=== PATIENT | male | born 1935 | race Caucasian/White ===

== ENCOUNTER 2023-05-10 09:07 | Inpatient (IN) | payer MEDICARE, OTHER, SELFPAY ==
[2023-05-08] VITALS (14 sets, daily range): BP systolic 120–179; BP diastolic 73–117; BMI 27.0
--- NOTE | 2023-05-08 02:54 | ED.GENMED ---
History of Present Illness
General
Chief Complaint: Hallucinations
Source: patient and spouse
Exam Limitations: none
Time Seen by Provider: 05/08/23 02:45
Nursing documentation reviewed up to this point in time: agreed with
Travel History
Have you had any contact with someone who has COVID-19?: No
Do you have any symptoms of coronavirus? Fever > 100 degrees, chills, cough, shortness of breath, sore throat, loss of taste or smell, muscle aches, or headache?: No
History of Present Illness
History of Present Illness:
This is a 88-year-old male that presents with acute hallucinations. According to they have been present since 4 PM this afternoon. Patient states that he saw 'fire 'around the room. Patient called 911. states that though he has not
driven in over a year, he got in the car to 'drive away'. Patient states that he was merely trying to wait outside in the driveway for the police to calm. Patient admits to 'hallucinating '. states that he has never done this before.
Patient denies any urinary symptoms.
Vital signs are stable. Patient not hypoxic
Nursing note reviewed. I agree with nursing documentation up to this point in time.
Home Meds and allergies reviewed.
NUMBER AND COMPLEXITY OF PROBLEMS ADDRESSED AT THE ENCOUNTER
� Chronic conditions affecting care: COPD, sleep apnea, on home oxygen, coronary artery disease, hypertension, hyperlipidemia
� Acute Exacerbation and/or Progression of Chronic Illness:
� Differential Diagnosis includes:
AMOUNT AND/OR COMPLEXITY OF DATA TO BE REVIEWED AND ANALYZED
I performed an independent evaluation of the following and my interpretation is:
EKG:
CT:
X-rays:
Ultrasound:
Laboratory Studies:
Other:
Review of other/old records:
Clinical information was obtained by an independent historian:
Prescriptions/Medications Considered but not given:
Further testing considered but not performed:
RISK OF COMPLICATIONS AND/OR MORBIDITY OR MORTALITY OF PATIENT MANAGEMENT
Social determinants of health affecting care: Good Social Support
Discussion with other providers:
Escalation of care including admission/observation vs risk of discharge considered:
CRITICAL CARE NOTE:
Total Time (exclusive of procedures):
Update:
Past History
Past History
ED Past Medical History: CAD, COPD, HTN, Hypercholesterolemia and Other (History of sleep apnea, prostatic hypertrophy, frequent urination, gout, osteoarthritis, osteoporosis, bilateral hearing impairment, cataracts, anemia)
ED Past Surgical History: Cardiac (Stents ) and Other (Hernia repairs, right shoulder surgery, left ear surgery, cataract surgery)
Social History
Tobacco: Non-smoker
Personal:
Living: with family
Employment: Retired
Family History
Family History: Unable to obtain
Phy Exam
General Physical Exam
General Presentation: mild distress
General age: appears stated age
General Skin: warm and dry
General Habitus: elderly and frail
General Mental: alert and confused
General Hydration: appears well hydrated
Cardiovascular Exam
Cardiovascular Exam: regular rate/rhythm and no edema
Pulmonary Exam
Pulmonary Exam: lungs clear and no respiratory distress
Gastrointestinal Exam
Gastrointestinal Exam: normal bowel sounds and non tender
Mental
Mental Status: confused
Musculoskeletal Exam
Musculoskeletal Exam: full ROM
Skin Exam
Skin Exam: normal color, warm/dry and no petechia
Psychiatric Exam
Psychiatric Exam: delusions
Course
Orders/Labs/Results
Orders:
Orders
05/08/23 02:41
Urinalysis Reflex To Culture Urgent
Date Specimen was Collected: 05/08/23
Time Specimen was Collected: 06:48
05/08/23 03:06
Complete Blood Count/With Diff Urgent
Comprehensive Metabolic Panel Urgent
Lactic Acid Urgent
Blood Culture Urgent
LASHA Source: Blood/Venous
Specimen Description:
05/08/23 03:43
0.9% Sodium Chloride 1000 ml [Nss] 1,000 ml IV BOLUS
05/08/23 05:41
CT Head W/o Iv Contrast Urgent
Comment:
Reason For Exam: confusion
Abnormal Lab Results
05/08/23
03:06
MCHC 32.5 L g/dL
(33.0-37.0)
Absolute Monos (auto) 0.7 H 10^3/uL
(0.1-0.6)
Lymphocytes % 16.8 L %
(20.5-51.1)
Carbon Dioxide 31 H mmol/L
(22-30)
BUN 33 H mg/dl
(9-20)
Glucose 102 H mg/dl
(70-99)
05/08/23 03:06
05/08/23 03:06
Vital Signs
Initial and Last Documented VS:
Initial Vital Signs
Temp Pulse Resp BP Pulse Ox
97.8 F 72 18 120/80 100
05/08/23 00:43 05/08/23 00:43 05/08/23 00:43 05/08/23 00:43 05/08/23 00:43
Last Documented Vital Signs
Temp Pulse Resp BP Pulse Ox
97.8 F 78 18 179/97 95
05/08/23 00:43 05/08/23 03:00 05/08/23 00:43 05/08/23 02:52 05/08/23 03:00
*Critical Care Note
Total Time (30-74mins, 75-104mins- exclusive of procedures): Not Applicable
ED Attending Note
-
Portions of this chart may have been created with voice recognition software.� Occasional wrong word or��sound alike� substitutions may have occurred due to the inherent limitations of voice recognition software.
Discharge Plan
Departure
Patient Disposition: Admit
Date of Disposition: 05/08/23
Time of Disposition: 07:17
Admit to: Med/Surg
Presentation/result/management discussed w/ accepting MD/DO: Hospitalist
Condition: Fair
Discharge Problem:
Acute confusion, Hallucinations, Acute dehydration
Instructions: BLOOD PRESSURE
Prescriptions:
No Action
zinc gluconate 50 MG tablet
50 mg PO DAILY
magnesium 250 MG tablet
100 mg PO DAILY
isosorbide mononitrate 10 MG tablet
5 mg PO DAILY
Patient Comments:
12/16/20-patient said he does not think he needs a full tablet so he either takes 1/4 or 1/2
atenolol 25 MG tablet
12.5 mg PO DAILY
Patient Comments:
12/16/20-patient said he does not think he needs a full tablet so he either takes 1/4 or 1/2
cyanocobalamin (vitamin B-12) 1,000 MCG tablet
1,000 mcg PO DAILY
ascorbic acid (vitamin C) [Vitamin C] 500 MG tablet
1,000 mg PO DAILY
ferrous sulfate [FeroSul] 325 MG tablet
325 mg PO DAILY
bumetanide 1 MG tablet
0.25 mg PO DAILY
Patient Comments:
12/16/20-patient said he does not think he needs a full tablet so he either takes 1/4 or 1/2
cholecalciferol (vitamin D3) 1,000 UNITS tablet
1,000 units PO DAILY
atorvastatin 20 MG tablet
40 mg PO QPM Qty: 30 0RF
clopidogrel 75 MG tablet
75 mg PO DAILY Qty: 30 0RF
Referrals:
Kumar Estrada MD [Family Provider] -
Interventions
Interventions:
*Risk Screen - Suicide Last Done: 05/08/23 00:43
*General Assessment Last Done: 05/08/23 03:31
*Neglect/Abuse Screening Last Done: 05/08/23 00:43
*ED COVID-19 Vaccine History Last Done: 05/08/23 03:31
ED-Suicide Risk Assessment Last Done: 05/08/23 03:33
ED- Neurological Assessment Last Done: 05/08/23 03:33
ED-Psychological Assessment Last Done: 05/08/23 03:33
[2023-05-08 03:15] LABS: % Basophils 0.5 % (0-2); % Eosinophils 0.8 % (0-6); % Immature Granulocytes 0.1 % (0-0.5); % Lymphocytes 16.8 % (20.5-51.1); % Monocytes 8.2 % (1.7-9.3); % Neutrophils 73.6 % (42.2-75.2); Absolute Eosinophils 0.1 10^3/uL (0-0.7); Absolute Lymphocytes 1.4 10^3/uL (1.2-3.4); Absolute Monocytes 0.7 10^3/uL (0.1-0.6); Absolute Neutrophils 6.1 10^3/uL (1.4-6.5); Hematocrit 41.5 % (39.0-52.0); Hemoglobin 13.5 g/dL (13.0-18.0); Mean Corp Hgb Conc. 32.5 g/dL (33.0-37.0); Mean Corpuscular Hgb 28.7 pg (27.0-31.0); Mean Corpuscular Volume 88.3 fL (80.0-94.0); Nucleated Red Blood Cells % 0 % (-); Platelet Count 218 10^3/uL (130-400); Red Cell Dist. Width 14.5 % (11.5-14.5); White Blood Cell Count 8.3 10^3/uL (4.8-10.8)
[2023-05-08 03:28] LABS: ALT (SGPT) 44 U/L (0-50); AST (SGOT) 54 U/L (17-59); Albumin 4.5 g/dl (3.5-5.0); Alkaline Phosphatase 124 U/L (38-126); Blood Urea Nitrogen 33 mg/dl (9-20); Calcium 9.6 mg/dl (8.4-10.2); Carbon Dioxide 31 mmol/L (22-30); Chloride 105 mmol/L (98-107); Estimated Creatinine Clearance 44 ml/min; Glucose 102 mg/dl (70-99); Potassium 4.2 mmol/L (3.5-5.1); Sodium 141 mmol/L (135-145); Total Bilirubin 0.6 mg/dl (0.2-1.3); Total Protein 7.3 g/dl (6.3-8.2); eGFR > 60.00
[2023-05-08] MEDS: NSS 1000 IV (04:14)
--- NOTE | 2023-05-08 07:39 | EDRN ---
the pt pressed the call acevedo and this RN entered the pts room, the pt stated to this RN that he needed to use the bathroom, this RN unhooked the pt from the monitor and assisted the pt to the bathroom and back to the stretcher with his single point
care with no issues, the pt was able to provide a urine sample, the pt is now resting in stretcher in the lowest position, side rails up x2, call acevedo within reach, HOB elevated, no s/s of distress, VS WNL, will continue to monitor the pt closely
[2023-05-08 07:57] LABS: Urine Albumin Trace (Neg - Trace); Urine Bilirubin Negative (Negative); Urine Character Clear (Clear); Urine Color Yellow; Urine Glucose Negative (Negative); Urine Ketone Negative (Negative); Urine Leukocyte Negative (Negative); Urine Nitrite Negative (Negative); Urine Occult Blood Negative (Negative); Urine Urobilinogen Negative (Neg - 1+)
--- NOTE | 2023-05-08 09:15 | EDRN ---
hospitalist currently at the pts bedside speaking to the pt and the pts
--- NOTE | 2023-05-08 09:22 | HPS.HSE ---
Family Physician
-
Family Physician: Kumar Estrada
Chief Complaint
-
Hallucinations x 1 day
History of Present Illness
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
difficulty (in 2020), anemia, hypertension, hyperlipidemia, COPD, sleep apnea, BPH, gout, osteoarthritis, bilateral hearing impairment, cataracts and anemia presented with hallucinations since yesterday. Patient appeared to be confused with poor
insight, therefore much of the history was obtained from patient's , who was present in the patient's room at the time of attempted patient encounter. Patient's mentioned that this was the first episode of patient having significant
confusion like this, started about 24 hours prior, she stated that patient was looking at the washing machine and saying water was flowing out of the machine and causing a flood which was not the case - the washing machine was functioning normally.
Patient's also stated that patient also thought their house was on fire (but in reality it was not). Patient's started that patient has been eating and drinking fine with no problems, and she also said that patient has not had any fever,
sore throat, URI symptoms, chest pain or shortness of breath, abdominal pain, nausea or vomiting. He does have on and off diarrhea with dark black stools, thought to be from his iron medication. She also said his left eye has been crusty over the
past day or so.
Medical History
Past Medical History
Past Medical History: Reports Other (As per HPI above)
Past Surgical History: Reports Cardiac and Orthopedic
Additional Past Surgical History:
Left ear surgery
Cataract surgery
Social History
Tobacco: Non-smoker
Alcohol: None
Drug: None
Family History
Family History: Other (Emphysema. Heart Disease.)
Allergies / Home Medications
Allergies reflects when Allergies were last updated in [employer]
Home Medications with original date entered in [employer]
Allergy/Medication List:
Allergies
Allergy/AdvReac Type Severity Reaction Status Date / Time
gramicidin D Allergy SORES GET Verified 05/08/23 00:46
WORSE
latex Allergy Rash Verified 05/08/23 00:46
neomycin Allergy SORES GET Verified 05/08/23 00:46
WORSE
NSAIDS (Non-Steroidal Allergy JUST Verified 05/08/23 00:46
Anti-Inflamma GENERALLY
DON'T TAKE
oxycodone Allergy 'WAY OUT Verified 05/08/23 00:46
IN SPACE'
polymyxin B Allergy SORES GET Verified 05/08/23 00:46
WORSE
shellfish derived Allergy gout Verified 05/08/23 00:46
Sulfa (Sulfonamide Allergy Rash 'GET Verified 05/08/23 00:46
Antibiotics) SICK' -
VOMITING
trimethoprim Allergy Unknown Verified 05/08/23 00:46
Home Medications
magnesium 250 mg tablet 100 mg PO DAILY Electrolyte Repletion 10/24/16
zinc gluconate 50 mg tablet 50 mg PO DAILY Supplement 10/24/16
isosorbide mononitrate 10 mg tablet 5 mg PO DAILY 01/17/17
ascorbic acid (vitamin C) 500 mg tablet (Vitamin C) 1,000 mg PO DAILY Supplement 12/16/20
atenolol 25 mg tablet 12.5 mg PO BID Blood pressure 12/16/20
bumetanide 1 mg tablet 0.5 mg PO MOTH Electrolyte Repletion 12/16/20
cholecalciferol (vitamin D3) 25 mcg (1,000 unit) tablet 1,000 units PO DAILY Supplement 12/16/20
cyanocobalamin (vitamin B-12) 1,000 mcg tablet 1,000 mcg PO DAILY Supplement 12/16/20
ferrous sulfate 325 mg (65 mg iron) tablet (FeroSul) 325 mg PO DAILY Supplement 12/16/20
aspirin 81 mg tablet,delayed release 81 mg PO DAILY 05/08/23
potassium 99 mg tablet 99 mg PO DAILY 05/08/23
vit C 250 mg-vit E 90 mg-zinc 40 mg-copper 1 [id number] capsule (PreserVision AREDS-2) 1 tab PO DAILY 05/08/23
Review of Systems
-
A 12 point ROS was completed and negative except as noted: Yes
Physical Exam
Vital Signs
Vital Signs
Temp Pulse Resp BP Pulse Ox
97.8 F 75 13 143/98 96
05/08/23 00:43 05/08/23 09:15 05/08/23 09:15 05/08/23 09:00 05/08/23 08:30
Physical Exam
General: No Apparent Distress and Comfortable
HEENT: NormoCephalic and Other (Left eye with some crusting and purulence)
Respiratory: Clear
Cardiac: S1/S2 and Regular Rhythm
GI: Soft, Non Tender and Normal Bowel Sounds
Musculoskeletal: No Cyanosis, Edema, Left Lower Extremity and Edema, Right Lower Extremity
Skin: Warm and Dry
Neuro: Awake, Alert and AO x 3 (but poor insight)
Psych: Calm, Confused and Other (demonstrate hallucinations)
Laboratory Results
-
05/08/23 03:06
05/08/23 03:06
Laboratory Results
Lactic Acid 1.0 mmol/L (0.7-2.0) 05/08/23 03:06
Total Bilirubin 0.6 mg/dl (0.2-1.3) 05/08/23 03:06
AST 54 U/L (17-59) 05/08/23 03:06
ALT 44 U/L (0-50) 05/08/23 03:06
Alkaline Phosphatase 124 U/L (38-126) 05/08/23 03:06
Impression/Plan
-
Assessment/Plan
Acute Hallucinations
Concern for Acute Toxic Metabolic Encephalopathy
-UA does not suggest UTI
-CXR, TSH, B1, B12, folate, ammonia, coags, magnesium, phosphorus, AM cortisol, serum osmolality
-CT Head - IMPRESSION (as per radiologist's report):
'1. Moderate-sized chronic subdural hygroma overlying the lateral convexity of the right frontal and parietal lobes causing mild mass effect which is not definitively changed from 12/17/2020.
2. 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
3. Severe white matter leukoaraiosis in the frontal and parietal lobes.
4. Mild diffuse cerebral and cerebellar volume loss.
5. Severe intracranial calcific atherosclerotic disease.'
-Check UDS
-Will consider neurology/neurosurgery consultation
Left Eye Mild Purulence
-Spoke on May 08, 2023 with on-call knitting machine operator helper Dr. Vivi Mills and shared (with Dr. Prince Mills) photo of patient's eye with patient's 's permission
-Based on history and exam it looks like suspected blepharitis
-Warm compresses
-Eyelid Scrubs
-Erythromycin ointment TID
Right Lower Extremity Wound
Chronic Right Lower Extremity Erythema
-Caused by trauma?
-Right lower extremity x-ray
-Patient's reports that patient has had this redness for a long time
-Will consider ID consult
-Wound care
Intermittent Diarrhea with Dark Black Stools - thought to be from iron medication and Hgb normal on admission. F/u outpatient.
Coronary artery disease status post stents - continue Aspirin, Isosorbide Mononitrate and Atenolol
Solitary kidney (since childhood) - monitor renal function; minimize/avoid nephrotoxic agents
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
History of signs and symptoms of cognitive impairment
History of speech difficulty (in 2020)
Anemia - Hgb normal on admission. Continue home ferrous sulfate. Continue home Vitamin B12.
Hypertension - SBP elevated to 170s overnight, now 140s - continue home nitrate, Bumex and beta benigno
Hyperlipidemia
COPD - stable
Sleep apnea
BPH
Gout
Osteoarthritis
Bilateral hearing impairment
Cataracts
DVT PPx: Lovenox
Code Status: DNR (Hospitalist confirmed this with patient's at the time of admission)
--- NOTE | 2023-05-08 10:34 | EDRN ---
"the pts came out of the pts room and approached this RN at the nurses station, the pts stated to this RN, 'My has not gotten any of his AM medications and i want them given to him now', this RN notified the hospitalist "Valeria"Juliette and received verbal orders for morning medications"
--- NOTE | 2023-05-08 10:45 | EDRN ---
this RN called pharmacy for the pts medications, pharmacy will be sending AM meds
[2023-05-08 11:16] LABS: Phosphorus 3.4 mg/dl (2.5-4.5)
[2023-05-08 11:48] LABS: Amphetamines Negative (Negative); Barbiturates Negative (Negative); Benzodiazepines Negative (Negative); Buprenorphine Negative (Negative); Cocaine Negative (Negative); Marijuana Negative (Negative); Methadone Negative (Negative); Methamphetamines Negative (Negative); Opiates Negative (Negative); Phencyclidine Negative (Negative); Tricyclic Antidepressants Negative (Negative)
[2023-05-08 11:50] LABS: Osmolality Serum 304 mOsm/kg (275-300)
[2023-05-08] MEDS: TENORMIN 25 MG PO (12:16)
[2023-05-08] MEDS: ISMO 10 MG PO (12:16)
[2023-05-08] MEDS: BUMEX 1 MG PO (12:16)
[2023-05-08 13:02] LABS: Folate 8.9 ng/ml (2.76-20)
[2023-05-08 13:27] LABS: INR 1.09; PT 13.9 Sec (11.4-14.6)
[2023-05-08 13:28] LABS: APTT 37.7 Sec (23.4-35.0)
[2023-05-08 13:33] LABS: Ammonia 12 umol/L (9-30)
[2023-05-08 13:39] LABS: Iron 75 ug/dl (49-181); Magnesium 1.8 mg/dl (1.6-2.3)
--- NOTE | 2023-05-08 13:39 | CON.NS ---
Consultation
-
Date/Time Consultation Performed: 13:40, 05/08/2023
Performing Provider: Ida
Chief Complaint
History of Present Illness
This is a neurosurgical consultation on 88 yo M with chronic hx of CAD, s/p stents, cognitive impairment, HTN, who presents with one day hx of visual hallucinations. Thus far, metabolic workup is negative. Patient with CTH that demonstrated slight
enlargement of known right convexity subdural hygroma.
Patient seen and examined. at the bedside. reports that the patient has had a history of hallucinations, but they have not been as bad as they were yesterday. She denies any medication changes.
Review of Systems
-
10 point review of systems was performed, which includes constitutional, ENT, cardiovascular, respiratory, GI, , neurologic, psychiatric, hematologic, endocrine logic, which was negative, except for stated in HPI.
Medication and Allergies
Home Medications
Home Medications
Medication Instructions Recorded
magnesium 250 mg tablet 100 mg PO DAILY Electrolyte 10/24/16
Repletion
zinc gluconate 50 mg tablet 50 mg PO DAILY Supplement 10/24/16
isosorbide mononitrate 10 mg tablet 5 mg PO DAILY 01/17/17
ascorbic acid (vitamin C) 500 mg 1,000 mg PO DAILY Supplement 12/16/20
tablet (Vitamin C)
atenolol 25 mg tablet 12.5 mg PO BID Blood pressure 12/16/20
bumetanide 1 mg tablet 0.5 mg PO MOTH Electrolyte 12/16/20
Repletion
cholecalciferol (vitamin D3) 25 1,000 units PO DAILY Supplement 12/16/20
mcg (1,000 unit) tablet
cyanocobalamin (vitamin B-12) 1,000 mcg PO DAILY Supplement 12/16/20
1,000 mcg tablet
ferrous sulfate 325 mg (65 mg 325 mg PO DAILY Supplement 12/16/20
iron) tablet (FeroSul)
aspirin 81 mg tablet,delayed 81 mg PO DAILY 03/11/24
release
potassium 99 mg tablet 99 mg PO DAILY 05/08/23
vit C 250 mg-vit E 90 mg-zinc 40 1 tab PO DAILY 05/08/23
mg-copper 1 [id number]
capsule (PreserVision AREDS-2)
Allergies
Allergies
Allergy/AdvReac Type Severity Reaction Status Date / Time
gramicidin D Allergy SORES GET Verified 05/08/23 00:46
WORSE
latex Allergy Rash Verified 05/08/23 00:46
neomycin Allergy SORES GET Verified 05/08/23 00:46
WORSE
NSAIDS (Non-Steroidal Allergy JUST Verified 05/08/23 00:46
Anti-Inflamma GENERALLY
DON'T TAKE
oxycodone Allergy 'WAY OUT Verified 05/08/23 00:46
IN SPACE'
polymyxin B Allergy SORES GET Verified 05/08/23 00:46
WORSE
shellfish derived Allergy gout Verified 05/08/23 00:46
Sulfa (Sulfonamide Allergy Rash 'GET Verified 05/08/23 00:46
Antibiotics) SICK' -
VOMITING
trimethoprim Allergy Unknown Verified 05/08/23 00:46
Physical Exam
-
Exam:
Awake, alert, conversant.
Oriented to year, person, and place.
Cranial nerves II through XII are grossly intact.
Motor: 5/5 strength of bilateral upper extremities and lower extremities.
Sensation intact in all dermatomes.
Gait not tested.
Reflexes symmetric bilaterally in upper and lower extremities
Head is normocephalic atraumatic.
Neck is supple.
Breathing nonlabored.
Pulses palpable.
Noncontrast CT scan of the head performed on 05/08/2023 was reviewed, and compared with previous CT performed in November 2020. There is stable appearing right-sided hypodense collection overlying the right convexity, which appears to be consistent
with a right subdural hygroma. There is no obvious evidence of brain compression or midline shift noted. No acute hemorrhages seen.
Problems
-
Problem Status Onset Code
Acute confusion R41.0
Hallucinations R44.3
Acute dehydration E86.0
Assessment / Plan
-
88-year-old gentleman, the presents with visual hallucinations. CT of the head demonstrates stable right-sided subdural hygroma. Given stability, and patient's acute onset of symptomatology, this is unlikely the cause of patient's symptoms.
Continue toxic/metabolic workup for encephalopathy.
No neurosurgical intervention indicated.
[2023-05-08] MEDS: VITAMIN C 1000 MG PO (13:48)
[2023-05-08] MEDS: KCL 10 MEQ PO (13:48)
[2023-05-08] MEDS: VITAMIN D3 (cholecalciferol) 25 MCG PO (13:48)
[2023-05-08] MEDS: ZINC SULFATE 220 MG PO (13:48)
[2023-05-08] MEDS: ASPIR LOW (ENTERIC COATED) 81 MG PO (13:48)
[2023-05-08] MEDS: FEOSOL 325 MG PO (13:48)
[2023-05-08] MEDS: OCUVITE SOFTGEL 1 CAP PO (13:48)
[2023-05-08] MEDS: VITAMIN B-12 1000 MCG PO (13:48)
[2023-05-08 13:49] LABS: Percent Saturation 25 % (20-50); Total Iron Binding Capacity 291 ug/dl (261-462)
[2023-05-08 14:10] LABS: TSH 3.97 uIU/ml (0.47-4.68)
[2023-05-08 14:29] LABS: Vitamin B12 741 pg/ml (239-931)
--- NOTE | 2023-05-08 15:32 | PTCARENOTE ---
Notified provider of patient rectal temp 94.8
--- NOTE | 2023-05-08 18:21 | PTCARENOTE ---
Pt with agitation. Yelling 'You can't stop it!' repeatedly. Got out of bed and began yelling 'You can't stop it!' at roommate. Bed alarm in place. Pt's at bedside. Pt calm. Bed alarm in place.
[2023-05-08] MEDS: LOVENOX 40 MG SC (18:36)
[2023-05-08] MEDS: ERYTHROMYCIN 0.5% OPHTHALMIC OINTMENT 1 APPLIC OPHTH ×2 (18:39→21:26)
[2023-05-08] MEDS: TENORMIN 12.5 MG PO (20:15)
[2023-05-09] MEDS: NSS (PRESERVATIVE FREE) 0.25 ML IV (00:15)
[2023-05-09] MEDS: ATIVAN 0.5 MG IV (00:15)
--- NOTE | 2023-05-09 00:15 | PTCARENOTE ---
Pt is AAOx3. Severely anxious, forgetful, confused, noncooperative, paranoid and hallucinating. Pt refuse to take anything by mouth due to paranoia. Pt believes he is home. High fall risk. Bed alarm in place. IT DISASTER RECOVERY MANAGER notify and small dose of Ativan IV
order. will cont w/ tx.
[2023-05-09 03:10] VITALS: BP 153/88
[2023-05-09 04:54] VITALS: BMI 25.8
[2023-05-09 07:30] VITALS: BP 141/96
[2023-05-09 08:56] LABS: Hemoglobin 12.2 g/dL (13.0-18.0); Mean Corpuscular Hgb 28.9 pg (27.0-31.0); Mean Corpuscular Volume 87.7 fL (80.0-94.0); Mean Platelet Volume 10.2 fL (7.4-10.4); Platelet Count 207 10^3/uL (130-400); Red Blood Cell Count 4.22 10^6/uL (4.70-6.10); Red Cell Dist. Width 14.8 % (11.5-14.5); White Blood Cell Count 12.4 10^3/uL (4.8-10.8)
[2023-05-09] MEDS: ERYTHROMYCIN 0.5% OPHTHALMIC OINTMENT 1 APPLIC OPHTH ×3 (09:17→21:11)
[2023-05-09] MEDS: ASPIR LOW (ENTERIC COATED) 81 MG PO (09:17)
[2023-05-09] MEDS: ISMO 5 MG PO (09:18)
[2023-05-09] MEDS: FEOSOL 325 MG PO (09:18)
[2023-05-09] MEDS: KCL 10 MEQ PO (09:20)
[2023-05-09] MEDS: MAG-TAB SR 84 MG PO (09:20)
[2023-05-09] MEDS: ZINC SULFATE 220 MG PO (09:21)
[2023-05-09] MEDS: TENORMIN 12.5 MG PO ×2 (09:22→20:41)
[2023-05-09] MEDS: VITAMIN D3 (cholecalciferol) 25 MCG PO (09:24)
[2023-05-09] MEDS: VITAMIN C 1000 MG PO (09:24)
[2023-05-09] MEDS: OCUVITE SOFTGEL 1 CAP PO (09:24)
[2023-05-09] MEDS: VITAMIN B-12 1000 MCG PO (09:24)
[2023-05-09 09:27] LABS: Blood Urea Nitrogen 31 mg/dl (9-20); Calcium 9.1 mg/dl (8.4-10.2); Carbon Dioxide 29 mmol/L (22-30); Chloride 103 mmol/L (98-107); Estimated Creatinine Clearance 49 ml/min; Glucose 112 mg/dl (70-99); Sodium 139 mmol/L (135-145); eGFR > 60.00
[2023-05-09 09:53] LABS: Cortisol, Random 24.7 ug/dl
[2023-05-09 10:14] LABS: B.E. 4.6 mmol/L; HCO3 31.2 mmol/L (21-28); O2 Saturation % 96.9 % (94-98); PCO2 54 mmHg (35-48); PO2 77 mmHg (83-108); pH 7.37 (7.35-7.45)
--- NOTE | 2023-05-09 11:38 | W.PN.HOSP.TC ---
Today's Communication/Plan
-
Patient's will bring patient's BiPAP from home today - he should wear BiPAP whenever he is sleeping as he does at home
Continue home BiPAP
Started antibiotics for pneumonia
Will consult neurology if patient's mental status fails to improve by May 10, 2023
Assessment / Plan
Assessment / Plan
Physical Exam
General: No Apparent Distress and Comfortable
HEENT: Normocephalic and Other (Left eye with some crusting and purulence)
Respiratory: Clear
Cardiac: S1/S2 and Regular Rhythm
GI: Soft, Non Tender and Normal Bowel Sounds
Musculoskeletal: No Cyanosis, Edema, Left Lower Extremity and Edema, Right Lower Extremity. RLE erythema near ankle (chronic per patient's family)
Skin: Warm and Dry
Neuro: Sleepy, difficult to arouse
Psych: Calm, Confused and Other (demonstrate hallucinations)

Assessment/Plan
Acute Hallucinations
Concern for Acute Toxic Metabolic Encephalopathy
Pneumonia vs. Atelectasis at the Lung Bases
New Leukocytosis on May 09, 2023 morning
-UA does not suggest UTI
-CXR (possible atelectasis vs. pneumonia at the lung bases), TSH - OK, B1 - PENDING, B12 - OK, folate - OK, ammonia - OK, coags - OK, magnesium - OK, phosphorus - OK, AM cortisol - OK, serum osmolality - slightly elevated at 304
-Continue Rocephin and PO Doxycycline given possible pneumonia on CXR
-CT Head - IMPRESSION (as per radiologist's report):
'1. ��Moderate-sized chronic subdural hygroma�overlying the lateral convexity of the right frontal and parietal lobes�causing mild mass effect�which is not definitively changed from 12/17/2020.
2. 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
3. � Severe white matter leukoaraiosis in the frontal and parietal lobes.
4. � Mild diffuse cerebral and cerebellar volume loss.
5. ��Severe intracranial calcific atherosclerotic disease.'
-UDS negative
-Neurosurgery consulted, recommendations appreciated
-Plan is to consult neurology if patient's mental status does not improve by May 10, 2023
Left Eye Mild Purulence
-Spoke on May 08, 2023 with on-call sack department supervisor Dr. Vivi Mills and shared (with Dr. Prince Mills) photo of patient's eye with patient's 's permission
-Based on history and exam it looks like suspected blepharitis
-Warm compresses
-Eyelid Scrubs
-Erythromycin ointment TID
Right Lower Extremity Wound
Chronic Right Lower Extremity Erythema
-Caused by trauma?
-Right ankle x-ray showed: osteopenia and vascular calcification/atherosclerosis
-Patient's reports that patient has had this redness for a long time--and it actually looks better than usual
-Will consider ID consult
-Wound care
Intermittent Diarrhea with Dark Black Stools - thought to be from iron medication and Hgb normal on admission. F/u outpatient.
Coronary artery disease status post stents - continue Aspirin, Isosorbide Mononitrate and Atenolol
Solitary kidney (since childhood) - monitor renal function; minimize/avoid nephrotoxic agents
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
History of signs and symptoms of cognitive impairment
History of speech difficulty (in 2020)
Anemia - Hgb normal on admission. Continue home ferrous sulfate. Continue home Vitamin B12.
Hypertension - SBP was previously elevated to 170s, now 140s - continue home nitrate, Bumex and beta benigno
Hyperlipidemia
COPD - stable. Continue home BiPAP,
Sleep apnea
BPH
Gout
Osteoarthritis
Bilateral hearing impairment
Cataracts
DVT PPx:�Lovenox
Code Status:�DNR (Hospitalist confirmed this with patient's at the time of admission)
I spoke with patient's Gloria and patient's son over the phone at [phone].
Anticipated Discharge: > 48 hours
Subjective/Interval History
-
Date of Service: May 09, 2023
Patient was seen and examined. He was very sleepy and difficult to arouse this morning.
Objective Data
-
Labs:
Laboratory Results
05/09/23 05/09/23
08:19 10:03
WBC 12.4 H
Hgb 12.2 L
Hct 37.0 L
Plt Count 207
HCO3 31.2 H
Sodium 139
Potassium 4.0
Chloride 103
Carbon Dioxide 29
BUN 31 H
Creatinine 1.0
Glucose 112 H
Calcium 9.1
Vital Signs:
Vital Signs
Temp Pulse Resp BP Pulse Ox
97.5 F 77 18 141/96 93
05/09/23 03:10 05/09/23 07:30 05/09/23 07:30 05/09/23 07:30 05/09/23 07:30
I&O
05/08/23 05/09/23 05/10/23
06:59 06:59 06:59
Intake Total 360 / 360
Balance 360 / 360
[2023-05-09] MEDS: ROCEPHIN 1000 MG IV (11:57)
[2023-05-09] MEDS: STERILE WATER FOR INJECTION 10 ML IV (11:57)
[2023-05-09] MEDS: NSS 1000 IV (14:52)
[2023-05-09 14:59] VITALS: BP 159/79
--- NOTE | 2023-05-09 15:45 | CM ---
Patient asleep, initial assessment completed with Gloria and son, Zhao. Per family, patient resides with in a two story home, 2 steps to enter home, 13 steps upstairs. Patient has a cane and walker at home, CPAP through [facility], denies VN,
reports [facility] several years ago. Patient PCP Kumar Estrada, [place] [facility] [place] SALINAS status explained, refused to sign, placed in patients chart. CM provided list of private caregivers. CM will continue to follow for discharge planning
needs.
Plan; discharge needs will depend on further medical eval
[2023-05-09 16:30] LABS: COVID-19 Antigen Negative (Negative)
[2023-05-09] MEDS: LOVENOX 40 MG SC (17:21)
[2023-05-09 20:33] VITALS: BP 174/93
[2023-05-09] MEDS: VIBRAMYCIN 100 MG PO (20:43)
[2023-05-09 23:21] VITALS: BP 134/78
[2023-05-10] VITALS (7 sets, daily range): BP systolic 101–142; BP diastolic 49–79; BMI 26.3
[2023-05-10] MEDS: NSS 1000 IV ×2 (03:02→15:19)
--- NOTE | 2023-05-10 04:53 | PTCARENOTE ---
2029 pt is drowsy abut arousable. able to tell this nurse his name and take is HS medications w/o issue. pt has a rectal temp 93.3- placed on swapna hugger.
at 0200 pt woke up became restless, and trying to remove the swapna hugger.
at 0300 rectal temp=97.2 - swapna hugger removed. pt was restless had some water then went back to bed. bed alarm in place.
[2023-05-10 08:38] LABS: Hematocrit 39.4 % (39.0-52.0); Hemoglobin 12.9 g/dL (13.0-18.0); Mean Corp Hgb Conc. 32.7 g/dL (33.0-37.0); Mean Corpuscular Hgb 28.8 pg (27.0-31.0); Mean Corpuscular Volume 87.9 fL (80.0-94.0); Mean Platelet Volume 10.2 fL (7.4-10.4); Platelet Count 200 10^3/uL (130-400); Red Blood Cell Count 4.48 10^6/uL (4.70-6.10); Red Cell Dist. Width 14.8 % (11.5-14.5)
[2023-05-10] MEDS: ASPIR LOW (ENTERIC COATED) 81 MG PO (08:47)
[2023-05-10] MEDS: ERYTHROMYCIN 0.5% OPHTHALMIC OINTMENT 1 APPLIC OPHTH ×3 (08:48→22:09)
[2023-05-10] MEDS: FEOSOL 325 MG PO (08:49)
[2023-05-10] MEDS: ISMO 5 MG PO (08:49)
[2023-05-10] MEDS: KCL 10 MEQ PO (08:52)
[2023-05-10] MEDS: OCUVITE SOFTGEL 1 CAP PO (08:52)
[2023-05-10] MEDS: MAG-TAB SR 84 MG PO (08:52)
[2023-05-10] MEDS: TENORMIN 12.5 MG PO ×2 (08:53→20:50)
[2023-05-10] MEDS: VIBRAMYCIN 100 MG PO ×2 (08:55→20:50)
[2023-05-10] MEDS: VITAMIN B-12 1000 MCG PO (08:56)
[2023-05-10] MEDS: VITAMIN C 1000 MG PO (08:56)
[2023-05-10] MEDS: ZINC SULFATE 220 MG PO (08:57)
[2023-05-10] MEDS: TYLENOL 1000 MG PO (08:57)
[2023-05-10] MEDS: VITAMIN D3 (cholecalciferol) 25 MCG PO (08:57)
[2023-05-10 09:07] LABS: Blood Urea Nitrogen 28 mg/dl (9-20); Calcium 9.2 mg/dl (8.4-10.2); Carbon Dioxide 26 mmol/L (22-30); Chloride 104 mmol/L (98-107); Estimated Creatinine Clearance 54 ml/min; Glucose 135 mg/dl (70-99); Potassium 3.9 mmol/L (3.5-5.1); Sodium 141 mmol/L (135-145); eGFR > 60.00
--- NOTE | 2023-05-10 11:49 | PTOTSP ---
SPEECH THERAPY SWALLOW EVALUATION:
Patient presents with grossly functional oropharyngeal swallow function at this time during CSE; However patient remains at risk for aspiration and related complications given significant lethargy yesterday. CXR concerning for bibasilar pneumonia,
WBC elevated. At this time, patient exhibiting no overt signs or symptoms of aspiration; Patient and family deny history of dysphagia symptoms. Given this, patient appears safe to continue oral diet with monitoring. Recommend Regular texture diet,
thin liquids. Aspiration precautions including: Upright positioning, 100% supervision/assistance with meals; discontinue oral diet should patient present with signs of aspiration or a decline in mental status or increase in lethargy. Feed only when
awake/alert. Medications whole with liquid. Speech therapy to follow, assess diet tolerance and modify as appropriate, monitor CXR and labs, determine indication for instrumental assessment of swallow, and provide education regarding aspiration
risks/precautions.
RECOMMEND:
1) Regular texture diet, thin liquids
2) Medications whole with liquid
3) Aspiration precautions including: Upright positioning, 100% supervision/assistance with meals; discontinue oral diet should patient present with signs of aspiration or a decline in mental status or increase in lethargy. Feed only when awake/alert
4) Speech therapy to follow, assess diet tolerance and modify as appropriate, monitor CXR and labs, determine indication for instrumental assessment of swallow, and provide education regarding aspiration risks/precautions
[2023-05-10] MEDS: ROCEPHIN 1000 MG IV (11:58)
[2023-05-10] MEDS: STERILE WATER FOR INJECTION 10 ML IV (11:59)
--- NOTE | 2023-05-10 12:46 | PTCARENOTE ---
Pt's temp noted to be 94.4 orally. Checked temp rectally and pt was 96.5. Sammie mason applied and pt rechecked in an hour and was 96.6 rectally. Sammie mason remains on patient at this time. Will continue to monitor.
--- NOTE | 2023-05-10 14:36 | CM ---
CM reviewed TT that patient has been switched to inpatient status. [facility] CM will continue to follow for discharge planning needs.
Plan; discharge needs will depend on further medical eval
[2023-05-10] MEDS: LOVENOX 40 MG SC (17:00)
--- NOTE | 2023-05-10 20:23 | W.PN.HOSP.TC ---
Today's Communication/Plan
-
Doing better, continue to monitor
Continue BiPAP
Might need to consult psychiatry
Assessment / Plan
Assessment / Plan
Physical Exam
General: No Apparent Distress and Comfortable
HEENT: Normocephalic and Other (Left eye with some crusting and purulence - improved slightly)
Respiratory: Clear
Cardiac: S1/S2 and Regular Rhythm
GI: Soft, Non Tender and Normal Bowel Sounds
Musculoskeletal: No Cyanosis, Edema, Left Lower Extremity and Edema, Right Lower Extremity. RLE erythema near ankle (chronic per patient's family)
Skin: Warm and Dry
Neuro: Alert. Awake.
Psych: Calm

Assessment/Plan
Acute Hallucinations
Concern for Acute Toxic Metabolic Encephalopathy
Pneumonia vs. Atelectasis at the Lung Bases
New Leukocytosis on May 09, 2023 morning
-UA does not suggest UTI
-CXR (possible atelectasis vs. pneumonia at the lung bases), TSH - OK, B1 - PENDING, B12 - OK, folate - OK, ammonia - OK, coags - OK, magnesium - OK, phosphorus - OK, AM cortisol - OK, serum osmolality - slightly elevated at 304
-Continue Rocephin and PO Doxycycline given possible pneumonia on CXR
-CT Head - IMPRESSION (as per radiologist's report):
'1. ��Moderate-sized chronic subdural hygroma�overlying the lateral convexity of the right frontal and parietal lobes�causing mild mass effect�which is not definitively changed from 12/17/2020.
2. 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
3. � Severe white matter leukoaraiosis in the frontal and parietal lobes.
4. � Mild diffuse cerebral and cerebellar volume loss.
5. ��Severe intracranial calcific atherosclerotic disease.'
-UDS negative
-Neurosurgery consulted, recommendations appreciated
-Plan is to consult neurology/psychiatry if patient's mental status does not improve further or patient continues to demonstrate psychosis
Left Eye Mild Purulence
-Spoke on May 08, 2023 with on-call binder roller Dr. Vivi Mills and shared (with Dr. Prince Mills) photo of patient's eye with patient's 's permission
-Based on history and exam it looks like suspected blepharitis
-Warm compresses
-Eyelid Scrubs
-Erythromycin ointment TID
Right Lower Extremity Wound
Chronic Right Lower Extremity Erythema
-Caused by trauma?
-Right ankle x-ray showed: osteopenia and vascular calcification/atherosclerosis
-Patient's reports that patient has had this redness for a long time--and it actually looks better than usual
-Will consider ID consult
-Wound care
Intermittent Diarrhea with Dark Black Stools - thought to be from iron medication and Hgb normal on admission. F/u outpatient.
Coronary artery disease status post stents - continue Aspirin, Isosorbide Mononitrate and Atenolol
Solitary kidney (since childhood) - monitor renal function; minimize/avoid nephrotoxic agents
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
History of signs and symptoms of cognitive impairment
History of speech difficulty (in 2020)
Anemia - Hgb normal on admission. Continue home ferrous sulfate. Continue home Vitamin B12.
Hypertension - SBP was previously elevated to 170s, now 140s - continue home nitrate, Bumex and beta benigno
Hyperlipidemia
COPD - stable. Continue home BiPAP,
Sleep apnea
BPH
Gout
Osteoarthritis
Bilateral hearing impairment
Cataracts
DVT PPx:�Lovenox
Code Status:�DNR (Hospitalist confirmed this with patient's at the time of admission)
On May 09, 2023, I spoke with patient's Gloria and patient's son over the phone at [phone].
Anticipated Discharge: 24 - 48 hours
Subjective/Interval History
-
Date of Service: May 10, 2023
Patient was seen and examined. He appeared more alert and awake today and was able to appropriately respond to questions. Nurse reported patient wore his BiPAP overnight.
Objective Data
-
Labs:
Laboratory Results
05/10/23
08:29
WBC 11.0 H
Hgb 12.9 L
Hct 39.4
Plt Count 200
Sodium 141
Potassium 3.9
Chloride 104
Carbon Dioxide 26
BUN 28 H
Creatinine 0.9
Glucose 135 H
Calcium 9.2
Vital Signs:
Vital Signs
Temp Pulse Resp BP Pulse Ox
98.3 F 84 20 125/68 93
05/10/23 19:24 05/10/23 19:24 05/10/23 19:24 05/10/23 19:24 05/10/23 19:24
I&O
05/09/23 05/10/23 05/11/23
06:59 06:59 06:59
Intake Total 360 / 360 1000 / 1000 1100 / 1100
Output Total 225 / 225
Balance 360 / 360 775 / 775 1100 / 1100
[2023-05-11] VITALS (9 sets, daily range): BP systolic 97–150; BP diastolic 47–100; PULSE 95; O2SAT 98; BMI 27.0
[2023-05-11 08:54] LABS: Hematocrit 40.5 % (39.0-52.0); Hemoglobin 13.1 g/dL (13.0-18.0); Mean Corp Hgb Conc. 32.3 g/dL (33.0-37.0); Mean Corpuscular Hgb 28.9 pg (27.0-31.0); Mean Corpuscular Volume 89.2 fL (80.0-94.0); Mean Platelet Volume 10.4 fL (7.4-10.4); Platelet Count 202 10^3/uL (130-400); Red Blood Cell Count 4.54 10^6/uL (4.70-6.10); White Blood Cell Count 11.2 10^3/uL (4.8-10.8)
[2023-05-11 09:44] LABS: Blood Urea Nitrogen 27 mg/dl (9-20); Calcium 8.8 mg/dl (8.4-10.2); Carbon Dioxide 26 mmol/L (22-30); Chloride 108 mmol/L (98-107); Estimated Creatinine Clearance 49 ml/min; Glucose 91 mg/dl (70-99); Potassium 4.1 mmol/L (3.5-5.1); Sodium 140 mmol/L (135-145); eGFR > 60.00
[2023-05-11] MEDS: ASPIR LOW (ENTERIC COATED) 81 MG PO (10:00)
[2023-05-11] MEDS: VIBRAMYCIN 100 MG PO (10:00)
[2023-05-11] MEDS: TENORMIN 12.5 MG PO (10:02)
[2023-05-11] MEDS: ISORDIL 10 MG PO (10:02)
[2023-05-11] MEDS: KCL 10 MEQ PO (10:03)
[2023-05-11] MEDS: VITAMIN C 1000 MG PO (10:03)
[2023-05-11] MEDS: OCUVITE SOFTGEL 1 CAP PO (10:03)
[2023-05-11] MEDS: FEOSOL 325 MG PO (10:03)
[2023-05-11] MEDS: VITAMIN B-12 1000 MCG PO (10:03)
[2023-05-11] MEDS: ZINC SULFATE 220 MG PO (10:03)
[2023-05-11] MEDS: VITAMIN D3 (cholecalciferol) 25 MCG PO (10:03)
[2023-05-11] MEDS: MAG-TAB SR 84 MG PO (10:03)
[2023-05-11] MEDS: ERYTHROMYCIN 0.5% OPHTHALMIC OINTMENT 1 APPLIC OPHTH ×3 (10:04→21:43)
[2023-05-11] MEDS: BUMEX 0.5 MG PO (10:07)
[2023-05-11] MEDS: ROCEPHIN 1000 MG IV (13:04)
[2023-05-11] MEDS: STERILE WATER FOR INJECTION 10 ML IV (13:05)
--- NOTE | 2023-05-11 14:52 | CON.MD ---
Consultation - Medical
-
patient seen chart reviewed. was at bedside. the patient was not a good historian.. he was seemingly quite sleepy and even when nsg came in to do vital signs did not rouse signficantly. provided history. she reports his demeanor has
changed in the past couple of days. he has become more withdrawn. he reports seeing things which is not a new phenomenon for him but in the past two days it seems to really disturb him and he keeps picking at the air as though he is grabbing
string and rolling it onto a spindle.she thinks the visual hallucinations began about two months ago when he saw ophthalmology and was dx w macular degeneration. says they were told injections would not help him. it is particularly in left eye
and says it really does bother him. he has had auditory hallucinations in the past but in the form of music which did not disturb him. he has no hx of psychiatric treatment. he has never been treated for depression, anxiety, psychosis in
the past. he does have a hx of many medical illnesses including cad w stents, copd, young, htn, hld, bph, gout, osteoarthritis, osteoporosis, hearing impairment, macular degeneration and hx cataracts.
past psych hx none
medical hx as above noted anemia listed in chart but cbc w nl hgb. sl elevated wbc noted cat brain w no new findings leukoaraiosis diffuse volume loss arteriosclerotic calcificatons in the brain diffuse volume loss unchanged hygroma temp
96.5 several readings in the hypothermic range b1 pending b12 normal bun consistently high 20's lft's ok tsh nl
fh non contributory
substance abuse denied
social retired lives w
mse patient was lying in bed under an inflatable blanket for hypothermia. he also had cpap mask on . he was difficult to understand but he did tell me he was in a hospital but could not tell met he year. he was rousable but kept falling asleep
and when he would awaken he would pick at the 'blanket'. could tell little more re mental status at this point as he did not really answer any of the questions i asked him. assured me he is fully oriented although it remains unclear
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
recommendations ordered neuro consult. this man has no prior psychiatric history . it is doubtful his visual hallucinations are the result of a primary psychiatric illness. at this point he is cooperative. . no need to intervene with sedating
medications. would continue to seek underlying medical cause of delirium. the hallucinations might also be secondary to alvarez bonnet syndrome eg associated w serious visual impairment eg macular degeneration for which antipsychotics are not
effective.
--- NOTE | 2023-05-11 15:09 | W.PN.HOSP.TC ---
Addendum entered and electronically signed by Mervin Segovia MD 05/11/23 16:15:
Lovenox and Aspirin are on hold (as per Dr. Shepard of [place]) for anticipated lumbar puncture procedure.
Original Note:
Today's Communication/Plan
-
Continue antibiotics
Psychiatry, ID and Neurology recommendations appreciated
Sammie Hugger due to hypothermia
Assessment / Plan
Assessment / Plan
Physical Exam
General: No Apparent Distress and Comfortable
HEENT: Normocephalic and Other (Left eye with some crusting and purulence - improved slightly)
Respiratory: Clear
Cardiac: S1/S2 and Regular Rhythm
GI: Soft, Non Tender and Normal Bowel Sounds
Musculoskeletal: No Cyanosis, Edema, Left Lower Extremity and Edema, Right Lower Extremity. RLE erythema near ankle (chronic per patient's family)
Skin: Warm and Dry
Neuro: Alert. Awake.
Psych: Calm

Assessment/Plan
Acute Hallucinations
Concern for Acute Toxic Metabolic Encephalopathy
Pneumonia vs. Atelectasis at the Lung Bases
New Leukocytosis on May 09, 2023 morning
-UA does not suggest UTI
-CXR (possible atelectasis vs. pneumonia at the lung bases), TSH - OK, B1 - PENDING, B12 - OK, folate - OK, ammonia - OK, coags - OK, magnesium - OK, phosphorus - OK, AM cortisol - OK, serum osmolality - slightly elevated at 304
-Continue Rocephin and PO Doxycycline given possible pneumonia on CXR
-CT Head - IMPRESSION (as per radiologist's report):
'1. ��Moderate-sized chronic subdural hygroma�overlying the lateral convexity of the right frontal and parietal lobes�causing mild mass effect�which is not definitively changed from 12/17/2020.
2. 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
3. � Severe white matter leukoaraiosis in the frontal and parietal lobes.
4. � Mild diffuse cerebral and cerebellar volume loss.
5. ��Severe intracranial calcific atherosclerotic disease.'
-UDS negative
-Patient is still having hallucinations and agitation
-Neurosurgery consulted, recommendations appreciated
-Psychiatry consulted, recommendations appreciated
-Neurology consulted, recommendations appreciated
-Infectious Disease consulted, recommendations appreciated
Left Eye Mild Purulence
-Spoke on May 08, 2023 with on-call imaging technologist Dr. Vivi Mills and shared (with Dr. Prince Mills) photo of patient's eye with patient's 's permission
-Based on history and exam it looks like suspected blepharitis
-Warm compresses
-Eyelid Scrubs
-Erythromycin ointment TID
Right Lower Extremity Wound
Chronic Right Lower Extremity Erythema
-Caused by trauma?
-Right ankle x-ray showed: osteopenia and vascular calcification/atherosclerosis
-Patient's reports that patient has had this redness for a long time--and it actually looks better than usual
-Will consider ID consult
-Wound care
Intermittent Diarrhea with Dark Black Stools - thought to be from iron medication and Hgb normal on admission. F/u outpatient.
Coronary artery disease status post stents - continue Aspirin, Isosorbide Mononitrate and Atenolol
Solitary kidney (since childhood) - monitor renal function; minimize/avoid nephrotoxic agents
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
History of signs and symptoms of cognitive impairment
History of speech difficulty (in 2020)
Anemia - Hgb normal on admission. Continue home ferrous sulfate. Continue home Vitamin B12.
Hypertension - SBP was previously elevated to 170s, now 140s - continue home nitrate, Bumex and beta benigno
Hyperlipidemia
COPD - stable. Continue home BiPAP,
Sleep apnea
BPH
Gout
Osteoarthritis
Bilateral hearing impairment
Cataracts
DVT PPx:�Lovenox
Code Status:�DNR (Hospitalist confirmed this with patient's at the time of admission)
On May 09, 2023, I spoke with patient's Gloria and patient's son over the phone at [phone].
Anticipated Discharge: > 48 hours
Subjective/Interval History
-
Date of Service: May 11, 2023
Patient was seen and examined. Patient was alert, but still hallucinating, and later in the day nurse reported patient was agitated.
Objective Data
-
Labs:
Laboratory Results
05/11/23
08:26
WBC 11.2 H
Hgb 13.1
Hct 40.5
Plt Count 202
Sodium 140
Potassium 4.1
Chloride 108 H
Carbon Dioxide 26
BUN 27 H
Creatinine 1.0
Glucose 91
Calcium 8.8
Vital Signs:
Vital Signs
Temp Pulse Resp BP Pulse Ox
96.4 F L 61 18 129/99 100
05/11/23 14:55 05/11/23 14:55 05/11/23 14:55 05/11/23 14:55 05/11/23 14:55
I&O
05/10/23 05/11/23 05/12/23
06:59 06:59 06:59
Intake Total 1000 / 1000 1100 / 1100 990 / 990
Output Total 225 / 225 550 / 550 800 / 800
Balance 775 / 775 550 / 550 190 / 190
--- NOTE | 2023-05-11 15:19 | CM ---
CM received call from patients son, Zhao, asking for update.CM discussed PT recommendations of SNF, CM will discuss referrals with patients . CM informed son patient has been switched to inpatient status. Zhao provided brother, Kingsley, contact
information as he lives nearby ([place] [phone]). Patient seen bedside with , discussed PT/OT recommendation of SNF, requesting referrals to [facility], [facility], and [facility] ([place] CM will send referrals in [facility], will continue
to follow for discharge planning needs. CM discussed patient has been switched to inpatient status. Patient currently in [facility]. Per Psych consult, recommending neuro consult.
Plan; SNF pending accepting facility, when medically stable.
--- NOTE | 2023-05-11 16:00 | CON.ID ---
Consultation
-
Date/Time Consultation Requested: 05/11/2023 1329
Date/Time Consultation Performed: 05/11/2023 1530
Requesting Provider: Dr. Segovia
Performing Provider: Dr. Shepard
Reason for Consultation: Change in mental status; hallucinations
Chief Complaint / Past History
History of Present Illness
Shiva Lanza is an 88-year-old man being evaluated at the request of Dr. Segovia in regards to change in mental status. History is obtained from chart review alone as the patient cannot provide any history for me.
Per the who was at the bedside, the patient was in his usual state of health until 4 days ago when he developed acute hallucinations late in the evening. She notes that a load of wash was placed in the washing machine. As he watched the
washer, he started seeing water coming out of it. He also reported thinking that house was on fire. He tried to get into his car and drive away, but the stopped him and police were called. When his disorientation persisted, the ambulance was
called and he was brought into the emergency room.
No history of prior fevers or chills. No history of prior hallucinations per the . At present, he denies any pain, but further review of systems cannot be performed.
Past History
Additional Past Medical History:
CAD
COPD
HTN
Dyslipidemia
NORA
BPH
Gout
Osteoarthritis
Additional Past Surgical History:
PCTA
Hernia repair
Right shoulder surgery
Left ear surgery
Allergy History:
gramicidin D Allergy (Verified 05/08/23 00:46)
SORES GET WORSE
latex Allergy (Verified 05/08/23 00:46)
Rash
neomycin Allergy (Verified 05/08/23 00:46)
SORES GET WORSE
NSAIDS (Non-Steroidal Anti-Inflamma Allergy (Verified 05/08/23 00:46)
JUST GENERALLY DON'T TAKE
oxycodone Allergy (Verified 05/08/23 00:46)
'WAY OUT IN SPACE'
polymyxin B Allergy (Verified 05/08/23 00:46)
SORES GET WORSE
shellfish derived Allergy (Verified 05/08/23 00:46)
gout
Sulfa (Sulfonamide Antibiotics) Allergy (Verified 05/08/23 00:46)
Rash 'GET SICK' - VOMITING
trimethoprim Allergy (Verified 05/08/23 00:46)
Unknown
Medications Reviewed: Yes
Current Antibiotics:
Ceftriaxone
Doxycycline
Social History
Tobacco: Non-Smoker
Alcohol: None
Drug: None
Personal:
Living: With Family
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
Family History
Family History: Not Pertinent
Review of Systems
Vital Signs
Temp Pulse Resp BP Pulse Ox
96.4 F L 61 18 129/99 100
05/11/23 14:55 05/11/23 14:55 05/11/23 14:55 05/11/23 14:55 05/11/23 14:55
Physical Exam
Physical Exam
Constitutional: No Acute Distress, Comfortable, Chronically Ill and Non-toxic; Negative Acutely Ill
Head: Normocephalic
Eyes: Pupils Equal, Pupils Round, No Conjunctival Hemorrhage and Sclera Anicteric
Pharynx: Benign
Oral: No Thrush and No Ulcers
Cardiovascular: S1/S2; Negative S3/S4 or Murmur
Pulmonary: Non Labored; Negative Wheezes, Rales or Rhonchi
Gastrointestinal: Soft, Non Tender, Non Distended and Normal Bowel Sounds
Genito-Urinary: Negative Barton
Extremities: Pulses; Negative Edema, Cyanosis, Erythema or Calf Swelling
Skin: Warm and Dry; Negative Rash or Jaundice
Neurological: Awake; Negative Oriented or Meningeal Signs (no nuchal rigidity)
Psychological: Confused
.
Lab / Diagnostic Study Results
05/11/23 08:26
05/11/23 08:26
Abs Immat Gran (auto) 0.0 10^3/uL (0-0.05) 05/08/23 03:06
Absolute Neuts (auto) 6.1 10^3/uL (1.4-6.5) 05/08/23 03:06
Absolute Lymphs (auto) 1.4 10^3/uL (1.2-3.4) 05/08/23 03:06
Absolute Monos (auto) 0.7 10^3/uL (0.1-0.6) H 05/08/23 03:06
Absolute Basos (auto) 0.0 10^3/uL (0-0.2) 05/08/23 03:06
Immature Gran % 0.1 % (0-0.5) 05/08/23 03:06
Neutrophils % 73.6 % (42.2-75.2) 05/08/23 03:06
Lymphocytes % 16.8 % (20.5-51.1) L 05/08/23 03:06
Monocytes % 8.2 % (1.7-9.3) 05/08/23 03:06
Eosinophils % 0.8 % (0-6) 05/08/23 03:06
Basophils % 0.5 % (0-2) 05/08/23 03:06
PT 13.9 Sec (11.4-14.6) 05/08/23 13:06
INR 1.09 05/08/23 13:06
Lactic Acid 1.0 mmol/L (0.7-2.0) 05/08/23 03:06
Microbiology Results
Micro:
05/08/23 13:06 Blood Culture - Preliminary
Blood/Venous No Growth in 72 hours- Final report to follow
05/08/23 03:06 Blood Culture - Preliminary
Blood/Venous No Growth in 72 hours- Final report to follow
05/09/23 10:10 MRSA Screen - Final
Nose No Methicillin Resistant Staphylococcus aureus isolated.
05/09/23 16:07 Influenza Types A & B ([facility]) - Final
Nasal Swab Negative for Influenza A & B, NAAT
Negative results must be combined with clinical observations
and patient history.
Nucleic Acid Amplification test (NAAT)performed on the
[employer] platform.
Imaging:
05/09/2023 CXR (2 view): No pulmonary edema seen. Suboptimal inspiration limits utility of exam. There may be mild parenchymal airspace disease in both lung bases. Not clear whether subsegmental atelectasis or bibasilar pneumonia.
Assessment / Plan
Change in mental status/encephalopathy.
- TME? Viral encephalopathy?
Leukocytosis
CAD
COPD
HTN
Dyslipidemia
NORA
BPH
Gout
Osteoarthritis
Recommendations:
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
Will begin acyclovir 800 mg IV every 8 hours.
Consult Interventional Radiology for LP.
- [employer] studies, including CSF PCR, have been ordered.
Monitor white count and temperature curve.
Await Neurology evaluation.
May consider MRI brain
Follow WBC / temp curve.
Care Review
Plan reviewed with: Physician (Hospitalist)
[2023-05-11] MEDS: ZOVIRAX INJECTION 266 MG IV ×2 (16:41→23:53)
[2023-05-11 17:10] LABS: Ammonia < 9 umol/L (9-30)
[2023-05-11] MEDS: LOVENOX SC (18:00)
[2023-05-11 19:10] LABS: Vitamin B1, Whole Blood 149 nmol/L (70-180)
--- NOTE | 2023-05-11 19:56 | FALL ---
Description of Fall: pt found laying on floor, laying on left side. Denies hitting head.
Injuries Noted: none
Action Taken: assisted back to bed
Name of Provider Notified: Dr. Bryson, and Jules Antunez (YARDER PUNCHER)
[2023-05-11] MEDS: VIBRAMYCIN PO (21:48)
[2023-05-11] MEDS: TENORMIN PO (21:49)
--- NOTE | 2023-05-11 23:44 | W.PN.UPDATE ---
Update Note
Progress Note Update
At 1950, RN notified SUBJECT SCIENTIFIC RESEARCH, Patient had a fall at 1830 and has not been evaluated. Day shift nursing still at the nursing station, stated he was found on the floor laying side ways with his head held up. Patient was seen and evaluated. Patient noted to
be sitting in a Olivier chair. AA, oriented to name, and his own address. Patient did not recall falling, Reported he has no pain anywhere. Patient follows commands, but noted to be restless to get out of the chair. no brusies, cuts or swelling
noted on head, or any parts of body, Equal strength in all extremities.Placed patient on 1:1 olivier chair.
[2023-05-12 03:28] VITALS: BP 160/98
[2023-05-12 05:43] LABS: Hemoglobin 11.5 g/dL (13.0-18.0); Mean Corp Hgb Conc. 32.9 g/dL (33.0-37.0); Mean Corpuscular Hgb 28.6 pg (27.0-31.0); Mean Corpuscular Volume 87.1 fL (80.0-94.0); Mean Platelet Volume 10.5 fL (7.4-10.4); Platelet Count 220 10^3/uL (130-400); Red Blood Cell Count 4.02 10^6/uL (4.70-6.10); Red Cell Dist. Width 14.8 % (11.5-14.5); White Blood Cell Count 9.5 10^3/uL (4.8-10.8)
[2023-05-12 06:00] VITALS: BMI 27.4
[2023-05-12 06:08] LABS: Blood Urea Nitrogen 35 mg/dl (9-20); Calcium 8.9 mg/dl (8.4-10.2); Carbon Dioxide 26 mmol/L (22-30); Chloride 108 mmol/L (98-107); Estimated Creatinine Clearance 41 ml/min; Glucose 112 mg/dl (70-99); Potassium 4.3 mmol/L (3.5-5.1); Sodium 140 mmol/L (135-145); eGFR 58.53
--- NOTE | 2023-05-12 06:36 | PTCARENOTE ---
Reached out to CREDIT REPORTING CLERK Jay Antunez as patient is pulling at his CPAP, iv and attempting to hit staff,. CREDIT REPORTING CLERK will place an order for soft restraints . Order placed at 6:17 on ?2023. Patient placed in restrients assisted by nurse and 2 PCT. Patient
tolerated well .
[2023-05-12 07:00] VITALS: BP 142/77
[2023-05-12] MEDS: ZOVIRAX INJECTION 266 MG IV ×2 (08:28→16:37)
[2023-05-12] MEDS: KCL PO (08:30)
[2023-05-12] MEDS: VITAMIN B-12 PO (08:30)
[2023-05-12] MEDS: VITAMIN D3 (cholecalciferol) PO (08:30)
[2023-05-12] MEDS: FEOSOL PO (08:30)
[2023-05-12] MEDS: MAG-TAB SR PO (08:30)
[2023-05-12] MEDS: ZINC SULFATE PO (08:30)
[2023-05-12] MEDS: OCUVITE SOFTGEL PO (08:30)
[2023-05-12] MEDS: VITAMIN C PO (08:30)
[2023-05-12 08:34] LABS: Venous Blood Gas B.E. 4.6 mmol/L (-4 to +4); Venous Blood Gas HCO3 29.8 mmol/L (22-27); Venous Blood Gas O2 Sat % 98.8 %; Venous Blood Gas pCO2 46 mmHg (35-48); Venous Blood Gas pH 7.42 (7.32-7.43); Venous Blood Gas pO2 122 mmHg (30-50)
--- NOTE | 2023-05-12 10:30 | CON.NEURO4 ---
Addendum entered and electronically signed by Arash Saavedra MD 05/12/23 12:04:
Studies reviewed.
I have personally examined the patient. I reviewed and agree with the PAVING INSPECTOR's Note.
My addenda:
Awake, alert, interactive. No acute distress.
Speech thick, mildly reduced. Content is unclear. Patient suddenly reaches out inappropriately at times; wearing bilateral upper extremity restraints
Follows some 1-step requests w/ difficulty. No tremor.
Extra-ocular movements grossly intact.
Facial movements full and symmetric. Hearing intact to normal conversational volume.
Normal UE movements bilaterally.
Neck: full ROM.
Chest: no dyspnea
Heart: no JVD
Ext: (-) Clubbing, (-) Cyanosis, (-) Edema
IMPRESSIONS/RECOMMENDATIONS:
Abrupt onset of worsening confusion, aphasia, and reportedly hallucinations.
As was previously evaluated by my esteemed colleague, it is likely that the patient has underlying dementia and a significant worsening due to exacerbation of same. Underlying toxic metabolic etiology may also be possible as made the possibility of
stroke producing a sudden decline
When possible MRI of the brain
We will follow lumbar puncture results patient had previously been changed to the use of clopidogrel instead of aspirin, may need to alter again the patient's medications
Rehabilitation evaluations including speech therapy
Recheck CT of head if patient is unable to have additional neuroimaging in the next 24 hours
Will continue to follow pending results.
Original Note:
Consultation - Neurology 4
-
CONSULTING PHYSICIAN: Arash Saavedra MD
REFERRING PHYSICIAN: Psychiatry/Dr. Fuller
DICTATED BY: NOLBERTO Marques
DATE/TIME OF REQUEST: 05/11/23
DATE/TIME OF CONSULTATION: 05/12/23
Reason for Consultation: Confusion
History of Present Illness:
This is an 88-year-old RH male who has presented to the hospital on 05/08/23 with report of acute hallucinations. Patient is unable to provide a history therefore this information is obtained from medical records. Patient was previously evaluated by
our Neurology service in November 2020 for two transient episodes of expressive aphasia.
From previous evaluation by Dr. León on 12/17/20:
'The patient is an 85-year-old right-handed man with a past medical history of hypertension, hyperlipidemia, coronary artery disease, sleep apnea who presented to the hospital with 2 episodes of expressive speech difficulty.� Patient says he has
been in his normal state of health recently and compliant with medications and noted that yesterday in the afternoon he seemed to have a period of time where he could not get his words out hardly at all.� His witnessed this and he seemed to not
be able to put what he wanted to say into words and seemed frustrated.� The seem to last about 30 minutes speaking with his .� There have been a similar episode that occurred on Friday 12/15.� He has no known history of stroke but he does have
a history of coronary artery disease for which she takes aspirin.� He and his are quite clear on if he is taking this every day but it is clear that he takes it sometimes as needed for headache.� He says that he has headaches nearly every day
in the back of his head this is been going on for couple months.� He denies any fever, myalgia, weight loss, anabaptist tenderness or jaw claudication.� Is not had any vision changes.� No history of head or neck trauma or neck pain. He says that his
short-term memory is not very good, he does take care of himself with independent walking and showers, eats, cooks and shops on his own.� He takes care of the finances and balances the checkbook.'
He was unable to have an MRI, CT head at the time was negative for any acute findings. Carotid ultrasound demonstrated L ICA 50-69% stenosis and R ICA <50% stenosis. 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
daily. One year ago, the patient stopped driving, reason unclear. About two months ago he started to have visual hallucinations and was evaluated by ophthalmology who diagnosed macular degeneration, but he had no further workup for the
hallucinations. He also has had auditory hallucinations in the past of hearing a radio. On 05/04/23, patient reports that he became lethargic, was having frequent diarrhea, and not speaking for several hours at a time. Then on 05/08/23 he
developed severe hallucinations of thinking the washing machine was flooding and the house was on fire. He tried to drive their car and his called 911 who then brought him to the ER. CT head was obtained and demonstrates a previously visualized
hygroma causing mild mass effect, a chronic right cerebellar ischemic infarct, severe white mater, and mild diffuse atrophy. Chest xray is suggestive of atelectasis vs pneumonia. WBC 12.4 Patient got out of bed and had a fall last evening (05/11/23)
and is now restrained. He is pleasant but speech is dysarthric and he does not provide answers to many questions, reaching out to grab nonexistent items. He reports some chest discomfort but otherwise offers no complaints.
Past Medical History: HTN, HLD, CAD, COPD, CHF, NORA, BPH, gout, osteoarthritis, b/l hearing loss, iron deficiency anemia, congenital absence of R kidney, rheumatic fever as child, pneumonia, melanoma
Surgical History: Cardiac stent, hernia repair, right shoulder repair, left ear surgery, b/l cataract removal, TURP, carpal tunnel release
Family History: Reviewed and noncontributory.
Social History: No tobacco, alcohol, or illicit drug use.
Allergies: See below.
Home Medications: See below.
Review of Symptoms:
Per the HPI. I am unable to obtain a complete review of systems�because of patient's inability to provide history.
Physical Exam:
The patient is afebrile, abdomen is nondistended, breathing is dyspneic, skin is warm and dry, venous stasis changes in BLE.
Neurologic Examination:
The patient is awake, alert and oriented to name only. He is able to follow a rare one-step commands and answer a rare simple question. There is moderate dysarthria but mouth is also extremely dry. On cranial nerve assessment, pupils are 1.5 mm
bilateral, round and reactive to light and accommodation. Visual harley are challenging to assess but appear full. Extraocular movements are intact. There is no facial asymmetry. Hearing is diminished bilaterally to normal conversation volume.
Tongue palate and uvula are midline. Sternocleidomastoid strengths are full bilaterally. Moves all extremities spontaneously. Flicker withdraw BLE, and localizes BUE to pain. No involuntary movement noted. RINKU drift. Deep tendon reflexes are absent
bilateral upper and lower extremities and Babinski is absent bilaterally. RINKU DBS, coordination, and sensation.
Lab Results: See below.
Neuro Imaging:
1. CT Head 05/08/23: Moderate-sized chronic subdural hygroma overlying the lateral convexity of the right frontal and parietal lobes causing mild mass effect which is not definitively changed from 12/17/2020. 2.3 cm chronic infarct in the superior
right cerebellar hemisphere. Severe white matter leukoaraiosis in the frontal and parietal lobes. Mild diffuse cerebral and cerebellar volume loss. Severe intracranial calcific atherosclerotic disease.
Differentials for the patient's presentation include:
1. TME. Etiology infectious, malignancy, vs low concern for stroke.
2. Underlying cognitive impairment.
3. Chronic right cerebellar ischemic stroke.
4. Chronic, stable hygroma not contributing to symptoms.
5. Carotid artery stenosis.
Patient has the following risk factors for their symptoms: Recent diarrhea, possible pneumonia, underlying cognitive impairment, hx stroke
Recommendations:
-Would like to obtain MRI brain but patient is unable.
-Lumbar puncture ordered/pending.
-Continue aspirin 81mg daily.
-Carotid ultrasound ordered/pending.
-Goal normotension and normothermia.
-Patient needs outpatient neuropsychological testing.
-Neurological checks per unit guidelines.
-Provide family with a stroke education packet.
-LDL goal <70. Lipid panel pending. Initiate atorvastatin 40mg daily.
-Goal normoglycemia, hbA1c pending.
-PT/OT/ST evaluations.
-DVT prophylaxis.
Discussed patient care with: Dr. Saavedra, the patient
Vital Signs and Labs
-
Vital Signs and Labs:
Vital Signs
Temp Pulse Resp BP Pulse Ox
98.8 F 95 18 142/77 94
05/12/23 07:00 05/12/23 07:00 05/12/23 07:00 05/12/23 07:00 05/12/23 07:00
Lab Results
05/12/23 05:19
05/12/23 05:19
PT 13.9 Sec (11.4-14.6) 05/08/23 13:06
INR 1.09 05/08/23 13:06
APTT 37.7 Sec (23.4-35.0) H 05/08/23 13:06
Sodium 140 mmol/L (135-145) 05/12/23 05:19
Potassium 4.3 mmol/L (3.5-5.1) 05/12/23 05:19
BUN 35 mg/dl (9-20) H 05/12/23 05:19
Glucose 112 mg/dl (70-99) H 05/12/23 05:19
Calcium 8.9 mg/dl (8.4-10.2) 05/12/23 05:19
Phosphorus Cancelled 05/08/23 10:05
Whole Bld Vitamin B1 149 nmol/L (70-180) 05/08/23 13:06
Vitamin B12 741 pg/ml (239-931) 05/08/23 13:06
Ur Buprenorphine Cancelled 05/08/23 10:06
Medications
-
Active Medications
Generic Name Dose Route Start Last Admin
Trade Name Freq PRN Reason Stop Dose Admin
Ascorbic Acid 1,000 mg 05/08/23 12:35 05/11/23 10:03
Ascorbic Acid 500 Mg Tablet PO 06/05/23 12:34 1,000 mg
DAILY DAT Administration
Aspirin 81 mg 05/12/23 09:00
Aspirin 81 Mg (Enteric Coated) Tablet PO 06/09/23 08:59
DAILY DAT
Atenolol 12.5 mg 05/08/23 20:00 05/11/23 21:49
Atenolol 25 Mg Tablet PO 06/05/23 19:59 Not Given
BID DAT
Bumetanide 0.5 mg 05/11/23 08:00 05/11/23 10:07
Bumetanide 1 Mg Tablet PO 06/08/23 07:59 0.5 mg
MoTh@0800 DAT Administration
Ceftriaxone Sodium 1,000 mg 05/09/23 12:00 05/11/23 13:04
Ceftriaxone 1000 Mg / 10 Ml Vial IV 1,000 mg
Q24H DAT Administration
Cholecalciferol 25 mcg 05/08/23 12:35 05/11/23 10:03
Cholecalciferol (Vitamin D3) 25 Mcg Tablet (1,000 Units) PO 06/05/23 12:34 25 mcg
DAILY DAT Administration
Cyanocobalamin 1,000 mcg 05/08/23 12:35 05/11/23 10:03
Cyanocobalamin 1,000 Mcg Tablet PO 06/05/23 12:34 1,000 mcg
DAILY DAT Administration
Doxycycline Hyclate 100 mg 05/09/23 20:00 05/11/23 21:48
Doxycycline 100 Mg Capsule PO Not Given
Q12 DAT
Enoxaparin Sodium 40 mg 05/08/23 18:00 05/11/23 18:00
Enoxaparin Sodium 40 Mg/0.4 Ml Syringe SC 06/05/23 17:59 Not Given
QPM DAT
Erythromycin 0 applic 05/08/23 16:00 05/11/23 21:43
Erythromycin 0.5% (Ophthalmic Ointment) 1 Gram Tube OPHTH 05/18/23 15:59 1 applic
TID DAT Administration
Ferrous Sulfate 325 mg 05/08/23 12:35 05/11/23 10:03
Ferrous Sulfate 325 Mg Tablet PO 06/05/23 12:34 325 mg
DAILY DAT Administration
Acyclovir Sodium 800 mg/ 266 mls @ 250 mls/hr 05/11/23 16:00 05/12/23 08:28
Sodium Chloride IV 05/21/23 15:59 266 mls
Q8H DAT Administration
Isosorbide Dinitrate 10 mg 05/11/23 08:00 05/11/23 10:02
Isosorbide Dinitrate 10 Mg Regular Release Tablet PO 06/08/23 07:59 10 mg
DAILY DAT Administration
Magnesium 84 mg 05/09/23 08:00 05/11/23 10:03
Magnesium Lactate 84 Mg Tablet PO 06/06/23 07:59 84 mg
DAILY DAT Administration
Potassium Chloride 10 meq 05/08/23 13:31 05/11/23 10:03
Potassium Chloride 10 Meq Extended Release Tablet PO 06/05/23 13:30 10 meq
DAILY DAT Administration
Sodium Chloride 0 flush 05/08/23 11:00
Sodium Chloride 0.9% (Flush) Syringe IV 06/05/23 10:59
PER PROTOCOL DAT
Sterile Water 10 ml 05/09/23 12:00 05/11/23 13:05
Sterile Water For Injection 10 Ml Vial IV 06/06/23 11:59 10 ml
Q24H DAT Administration
Vitamin C/Vitamin E 1 cap 05/08/23 13:03 05/11/23 10:03
Vit C/Vit E/Lutein/Min/[place]-3 (Ocuvite) Capsule PO 06/05/23 13:02 1 cap
DAILY DAT Administration
Zinc Sulfate 220 mg 05/08/23 13:04 05/11/23 10:03
Zinc Sulfate 220 Mg Capsule PO 06/05/23 13:03 220 mg
DAILY DAT Administration
Home Medications
Medication Instructions Recorded
magnesium 250 mg tablet 100 mg PO DAILY Electrolyte 10/24/16
Repletion
zinc gluconate 50 mg tablet 50 mg PO DAILY Supplement 10/24/16
isosorbide mononitrate 10 mg tablet 5 mg PO DAILY Heart 01/17/17
Disease/Condition
ascorbic acid (vitamin C) 500 mg 1,000 mg PO DAILY Supplement 12/16/20
tablet (Vitamin C)
atenolol 25 mg tablet 12.5 mg PO BID Blood pressure 12/16/20
bumetanide 1 mg tablet 0.5 mg PO MOTH Electrolyte 12/16/20
Repletion
cholecalciferol (vitamin D3) 25 1,000 units PO DAILY Supplement 12/16/20
mcg (1,000 unit) tablet
cyanocobalamin (vitamin B-12) 1,000 mcg PO DAILY Supplement 12/16/20
1,000 mcg tablet
ferrous sulfate 325 mg (65 mg 325 mg PO DAILY Supplement 12/16/20
iron) tablet (FeroSul)
aspirin 81 mg tablet,delayed 81 mg PO DAILY Blood Clot 05/08/23
release Prevention/Tx
potassium 99 mg tablet 99 mg PO DAILY Electrolyte 05/08/23
Repletion
vit C 250 mg-vit E 90 mg-zinc 40 1 tab PO DAILY Eye Condition 05/08/23
mg-copper 1 [id number]
capsule (PreserVision AREDS-2)
[2023-05-12] MEDS: ROCEPHIN 1000 MG IV (11:30)
[2023-05-12] MEDS: STERILE WATER FOR INJECTION 10 ML IV (11:30)
[2023-05-12 11:38] LABS: HDL Cholesterol 47 mg/dl; LDL Cholesterol, Calculated 82 mg/dl; Total Cholesterol 143 mg/dl (50-199); Triglyceride 72 mg/dl (10-149); Very Low Density Lipoprotein 14 mg/dl (0-30)
--- NOTE | 2023-05-12 11:43 | W.PN.UPDATE ---
Update Note
Progress Note Update
reviewed chart. did not see patient . neuro and ID involved. do not feel there is a role here for psychiatry . patient visual hallucinations are unlikely to be primarily psych....he is generally cooperative. explained to family we would be signing
off. please call if you need us to return.
[2023-05-12 12:14] LABS: Glycohemoglobin (HgbA1c) 5.6 % (4.0-5.6)
--- NOTE | 2023-05-12 13:07 | W.PN.ID1 ---
Date of Service
Date of Service: May 12, 2023
Today's Communication
Await LP.
Assessment / Plan
Change in mental status/encephalopathy.
- TME? Viral encephalopathy?
Leukocytosis - resolved
CAD
COPD
HTN
Dyslipidemia
NORA
BPH
Gout
Osteoarthritis
Recommendations:
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
Continue acyclovir 800 mg IV every 8 hours.
Consulted Interventional Radiology for LP.
- G[employer] studies, including CSF PCR, have been ordered.
Appreciate Neurology evaluation.
May consider MRI brain
Follow WBC / temp curve.
Chief Complaint
-: Other (Hallucinations)
Subjective / Review of Systems
Per , no change in mental status.
Vital Signs / Physical Exam
Vital Signs
Vital Signs
Temp Pulse Resp BP Pulse Ox
98.8 F 95 18 142/77 94
05/12/23 07:00 05/12/23 07:00 05/12/23 07:00 05/12/23 07:00 05/12/23 07:00
Physical Exam
Constitutional: Acutely Ill
Cardiovascular: Regular Rate and S1/S2
Pulmonary: Clear
Gastrointestinal: Soft, Non Tender and Non Distended
Extremities: Negative Edema
Psychological: Confused
Objective Data
Lab Data
Lab Results
05/12/23 05:19
05/12/23 05:19
PT 13.9 Sec (11.4-14.6) 05/08/23 13:06
INR 1.09 05/08/23 13:06
APTT 37.7 Sec (23.4-35.0) H 05/08/23 13:06
Estimated Creat Clear 41 ml/min 05/12/23 05:19
Lactic Acid 1.0 mmol/L (0.7-2.0) 05/08/23 03:06
Total Bilirubin 0.6 mg/dl (0.2-1.3) 05/08/23 03:06
AST 54 U/L (17-59) 05/08/23 03:06
ALT 44 U/L (0-50) 05/08/23 03:06
Alkaline Phosphatase 124 U/L (38-126) 05/08/23 03:06
Most recent labs reviewed.
Micro Results:
05/08/23 03:06 Blood Culture - Preliminary
Blood/Venous No Growth in 4 days- Final report to follow
05/08/23 13:06 Blood Culture - Preliminary
Blood/Venous No Growth in 72 hours- Final report to follow
05/09/23 10:10 MRSA Screen - Final
Nose No Methicillin Resistant Staphylococcus aureus isolated.
05/09/23 16:07 Influenza Types A & B ([facility]ODYM[facility]) - Final
Nasal Swab Negative for Influenza A & B, NAAT
Negative results must be combined with clinical observations
and patient history.
Nucleic Acid Amplification test (NAAT)performed on the
[employer] platform.
Imaging:
05/09/2023 CXR (2 view): No pulmonary edema seen. Suboptimal inspiration limits utility of exam. There may be mild parenchymal airspace disease in both lung bases. Not clear whether subsegmental atelectasis or bibasilar pneumonia.
[2023-05-12] MEDS: ISORDIL 10 MG PO (13:26)
[2023-05-12] MEDS: VIBRAMYCIN 100 MG PO ×2 (13:27→20:16)
[2023-05-12] MEDS: ASPIR LOW (ENTERIC COATED) 81 MG PO (13:27)
[2023-05-12] MEDS: TENORMIN 12.5 MG PO ×2 (13:27→20:07)
[2023-05-12] MEDS: ERYTHROMYCIN 0.5% OPHTHALMIC OINTMENT 1 APPLIC OPHTH ×3 (13:28→20:17)
[2023-05-12 15:00] VITALS: BP 138/67
--- NOTE | 2023-05-12 15:06 | PTOTSP ---
Addendum entered and electronically signed by ST Alyce 05/12/23 15:31:
Per discussion with MD, opposed to NPO and wants to resume a diet understanding risks/complications of aspiration. Consider IDDSI Level 4 (puree), IDDSI Level 2 (mildly thick) liquid diet understanding risks/complications of
dysphagia/aspiration based on current presentation. Solids/liquids may be able to be advanced pending mentation.
Original Note:
Addendum entered and electronically signed by ST Alyce 05/12/23 15:09:
5. Hold aspiration risk hydration protocol given periods of absent swallows.
Original Note:
Dysphagia Therapy
Patient presents with concern for moderate oral, an unspecified pharyngeal dysphagia, and is at a high risk for aspiration at this time given his altered mentation. Suspect he inconsistently initiated a swallow despite max verbal cues and had overt
signs of aspiration with thin liquids. Consider temporary NPO with non-oral means of nutrition, hydration, and medications given inconsistent swallow response despite max cues.
Recommend:
1. NPO - consider temporary non-oral means
2. Medications via non-oral means
3. Oral care 3-5x daily
4. Continued dysphagia tx at the acute care level to determine if/when patient appropriate to initiate an oral diet and/or when objective assessment such as a swallow study may be appropriate.
--- NOTE | 2023-05-12 15:22 | W.PN.HOSP.TC ---
Today's Communication/Plan
-
Continue Acyclovir and antibiotics
Patient's refused for patient to get LP
Patient's also mentioned that due to hardware in his head, he cannot get an MRI
Appreciate ID, neurology and psychiatry recommendations
Assessment / Plan
Assessment / Plan
Physical Exam
General: No Apparent Distress
HEENT: Normocephalic and Other (Left eye with some crusting and purulence - improved slightly)
Respiratory: Clear
Cardiac: S1/S2 and Regular Rhythm
GI: Soft, Non Tender and Normal Bowel Sounds
Musculoskeletal: No Cyanosis, Edema, Left Lower Extremity and Edema, Right Lower Extremity. RLE erythema near ankle (chronic per patient's family)
Skin: Warm and Dry
Neuro: Alert. Awake. Confused/Altered
Psych: Calm

Assessment/Plan
Acute Hallucinations
Concern for Acute Toxic Metabolic Encephalopathy
Pneumonia vs. Atelectasis at the Lung Bases
New Leukocytosis on May 09, 2023 morning
-UA does not suggest UTI
-CXR (possible atelectasis vs. pneumonia at the lung bases), TSH - OK, B1 - normal, B12 - OK, folate - OK, ammonia - OK, coags - OK, magnesium - OK, phosphorus - OK, AM cortisol - OK, serum osmolality - slightly elevated at 304
-Continue Rocephin and PO Doxycycline given possible pneumonia on CXR
-CT Head - IMPRESSION (as per radiologist's report):
'1. ��Moderate-sized chronic subdural hygroma�overlying the lateral convexity of the right frontal and parietal lobes�causing mild mass effect�which is not definitively changed from 12/17/2020.
2. 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
3. � Severe white matter leukoaraiosis in the frontal and parietal lobes.
4. � Mild diffuse cerebral and cerebellar volume loss.
5. ��Severe intracranial calcific atherosclerotic disease.'
-UDS negative
-Patient is still having hallucinations and agitation
-Neurosurgery consulted, recommendations appreciated
-Psychiatry consulted, recommendations appreciated
-Neurology consulted, recommendations appreciated: patient likely has underlying dementia and a significant worsening due to exacerbation of same
-Infectious Disease consulted, recommendations appreciated
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
-Continue acyclovir 800 mg IV every 8 hours.
-Patient cannot get MRI brain due to plates in his head
-Consider recheck CT of the head
-Patient's Gloria refused on May 12, 2023 for patient to get lumbar puncture after the reasons for doing a lumbar puncture were explained to her
Left Eye Mild Purulence
-Spoke on May 08, 2023 with on-call insole rasper Dr. Vivi Mills and shared (with Dr. Prince Mills) photo of patient's eye with patient's 's permission
-Based on history and exam it looks like suspected blepharitis
-Warm compresses
-Eyelid Scrubs
-Erythromycin ointment TID
Right Lower Extremity Wound
Chronic Right Lower Extremity Erythema
-Caused by trauma?
-Right ankle x-ray showed: osteopenia and vascular calcification/atherosclerosis
-Patient's reports that patient has had this redness for a long time--and it actually looks better than usual
-Will consider ID consult
-Wound care
Intermittent Diarrhea with Dark Black Stools - thought to be from iron medication and Hgb normal on admission. F/u outpatient.
Coronary artery disease status post stents - continue Aspirin, Isosorbide Mononitrate and Atenolol
Solitary kidney (since childhood) - monitor renal function; minimize/avoid nephrotoxic agents
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
History of signs and symptoms of cognitive impairment
History of speech difficulty (in 2020)
Anemia - Hgb normal on admission. Continue home ferrous sulfate. Continue home Vitamin B12.
Hypertension - SBP was previously elevated to 170s, now 140s - continue home nitrate, Bumex and beta benigno
Hyperlipidemia
COPD - stable. Continue home BiPAP,
Sleep apnea
BPH
Gout
Osteoarthritis
Bilateral hearing impairment
Cataracts
DVT PPx:�Lovenox
Diet: IDDSI 4 and IDDSI 2 Mildly Thick/[place] - I spoke with patient's Gloria on May 12, 2023 and patient's was adamant in patient continuing a solid diet despite the risks of aspiration pneumonia, as discussed with speech (who recommended
NPO at this time to be safe)
Code Status:�DNR (Hospitalist confirmed this with patient's at the time of admission)
On May 09, 2023, I spoke with patient's Gloria and patient's son over the phone at [phone].
On May 12, 2023, I spoke with patient's Gloria inside the patient's room.
Anticipated Discharge: > 48 hours
Subjective/Interval History
-
Date of Service: May 12, 2023
Patient was seen and examined. Patient appeared very confused this morning, and had a sitter and restraints.
Objective Data
-
Labs:
Laboratory Results
05/12/23
05:19
WBC 9.5
Hgb 11.5 L
Hct 35.0 L
Plt Count 220
Sodium 140
Potassium 4.3
Chloride 108 H
Carbon Dioxide 26
BUN 35 H
Creatinine 1.2
Glucose 112 H
Calcium 8.9
Vital Signs:
Vital Signs
Temp Pulse Resp BP Pulse Ox
98.4 F 91 18 138/67 94
05/12/23 15:00 05/12/23 15:00 05/12/23 15:00 05/12/23 15:00 05/12/23 15:00
I&O
05/11/23 05/12/23 05/13/23
06:59 06:59 06:59
Intake Total 1100 / 1100 1470 / 1470
Output Total 550 / 550 1400 / 1400
Balance 550 / 550 70 / 70
[2023-05-12 16:39] VITALS: BP 143/73; PULSE 95; O2SAT 98
[2023-05-12] MEDS: LIPITOR 40 MG PO (16:40)
[2023-05-12] MEDS: LOVENOX 40 MG SC (16:40)
[2023-05-12 23:08] VITALS: BP 164/69
[2023-05-13] MEDS: ZOVIRAX INJECTION 266 MG IV ×4 (00:34→23:13)
[2023-05-13] MEDS: RISPERDAL M-TAB (ORALLY DISINTEGRATING) 0.5 MG PO (00:34)
[2023-05-13 03:00] VITALS: BP 101/54
[2023-05-13 05:02] VITALS: BP 116/92
[2023-05-13 06:00] VITALS: BMI 27.5
[2023-05-13 06:37] LABS: Hematocrit 35.2 % (39.0-52.0); Hemoglobin 11.6 g/dL (13.0-18.0); Mean Corpuscular Hgb 28.3 pg (27.0-31.0); Mean Corpuscular Volume 85.9 fL (80.0-94.0); Mean Platelet Volume 10.3 fL (7.4-10.4); Platelet Count 241 10^3/uL (130-400); Red Cell Dist. Width 14.8 % (11.5-14.5); White Blood Cell Count 10.3 10^3/uL (4.8-10.8)
[2023-05-13 07:02] LABS: Blood Urea Nitrogen 34 mg/dl (9-20); Calcium 8.9 mg/dl (8.4-10.2); Carbon Dioxide 31 mmol/L (22-30); Chloride 103 mmol/L (98-107); Estimated Creatinine Clearance 44 ml/min; Glucose 107 mg/dl (70-99); Potassium 4.6 mmol/L (3.5-5.1); Sodium 141 mmol/L (135-145); eGFR > 60.00
[2023-05-13 08:00] VITALS: BP 118/91
[2023-05-13 09:06] VITALS: BP 118/91
[2023-05-13] MEDS: ASPIR LOW (ENTERIC COATED) PO ×2 (09:17→09:33)
[2023-05-13] MEDS: MAG-TAB SR 84 MG PO (09:17)
[2023-05-13] MEDS: OCUVITE SOFTGEL PO ×2 (09:17→09:34)
[2023-05-13] MEDS: VIBRAMYCIN 100 MG PO (09:17)
[2023-05-13] MEDS: FEOSOL 325 MG PO (09:17)
[2023-05-13] MEDS: VITAMIN B-12 1000 MCG PO (09:17)
[2023-05-13] MEDS: ZINC SULFATE 220 MG PO (09:17)
[2023-05-13] MEDS: KCL PO ×2 (09:18→09:33)
[2023-05-13] MEDS: ERYTHROMYCIN 0.5% OPHTHALMIC OINTMENT 1 APPLIC OPHTH ×3 (09:18→23:13)
[2023-05-13] MEDS: VITAMIN C PO ×2 (09:18→09:32)
[2023-05-13] MEDS: ISORDIL 10 MG PO (09:18)
[2023-05-13] MEDS: VITAMIN D3 (cholecalciferol) 25 MCG PO (09:18)
[2023-05-13] MEDS: TENORMIN 12.5 MG PO (09:21)
--- NOTE | 2023-05-13 10:38 | W.PN.ID1 ---
Date of Service
Date of Service: May 13, 2023
Today's Communication
Continue acyclovir for now.
Assessment / Plan
Change in mental status/encephalopathy.
- TME? Viral encephalopathy?
Leukocytosis - resolved
CAD
COPD
HTN
Dyslipidemia
NORA
BPH
Gout
Osteoarthritis
Recommendations:
Current presentation concerning for HSV or VZV encephalopathy as per Dr. Shepard
refused LP and brain MRI due to hardware in head.
Continue empiric acyclovir 800 mg IV every 8 hours for now.
Monitor renal function while on acyclovir.
Appreciate Neurology evaluation.
Chief Complaint
-: Other (Hallucinations)
Subjective / Review of Systems
on soft restraints. agitated. denies further hallucinations.
Vital Signs / Physical Exam
Vital Signs
Vital Signs
Temp Pulse Resp BP Pulse Ox
97.6 F 94 18 121/90 97
05/13/23 05:02 05/13/23 09:21 05/13/23 08:00 05/13/23 09:21 05/13/23 08:00
Physical Exam
Constitutional: Acutely Ill
Eyes: Negative No Conjunctival Hemorrhage or Sclera Anicteric
Pulmonary: Clear
Gastrointestinal: Soft, Non Tender and Non Distended
Neurological: Awake
Objective Data
Lab Data
Lab Results
05/13/23 05:48
05/13/23 05:48
PT 13.9 Sec (11.4-14.6) 05/08/23 13:06
INR 1.09 05/08/23 13:06
APTT 37.7 Sec (23.4-35.0) H 05/08/23 13:06
Estimated Creat Clear 44 ml/min 05/13/23 05:48
Lactic Acid 1.0 mmol/L (0.7-2.0) 05/08/23 03:06
Total Bilirubin 0.6 mg/dl (0.2-1.3) 05/08/23 03:06
AST 54 U/L (17-59) 05/08/23 03:06
ALT 44 U/L (0-50) 05/08/23 03:06
Alkaline Phosphatase 124 U/L (38-126) 05/08/23 03:06
Most recent labs reviewed.
Micro Results:
05/08/23 03:06 Blood Culture - Final
Blood/Venous No Growth - Final Report
05/08/23 13:06 Blood Culture - Preliminary
Blood/Venous No Growth in 4 days- Final report to follow
05/09/23 10:10 MRSA Screen - Final
Nose No Methicillin Resistant Staphylococcus aureus isolated.
05/09/23 16:07 Influenza Types A & B (VOLODYMYR) - Final
Nasal Swab Negative for Influenza A & B, NAAT
Negative results must be combined with clinical observations
and patient history.
Nucleic Acid Amplification test (NAAT)performed on the
[employer] platform.
Imaging:
05/09/2023 CXR (2 view): No pulmonary edema seen. Suboptimal inspiration limits utility of exam. There may be mild parenchymal airspace disease in both lung bases. Not clear whether subsegmental atelectasis or bibasilar pneumonia.
[2023-05-13 11:45] VITALS: BP 121/68
[2023-05-13] MEDS: ROCEPHIN 1000 MG IV (12:19)
[2023-05-13] MEDS: STERILE WATER FOR INJECTION 10 ML IV (12:19)
[2023-05-13 16:00] VITALS: BP 113/62
--- NOTE | 2023-05-13 17:38 | W.PN.HOSP.TC ---
Today's Communication/Plan
-
Recheck CT Head
Please see below
Assessment / Plan
Assessment / Plan
Physical Exam
General: No Apparent Distress
HEENT: Normocephalic and Other (Left eye with some crusting and purulence - improved slightly)
Respiratory: Clear
Cardiac: S1/S2 and Regular Rhythm
GI: Soft, Non Tender and Normal Bowel Sounds
Musculoskeletal: No Cyanosis, Edema, Left Lower Extremity and Edema, Right Lower Extremity. RLE erythema near ankle (chronic per patient's family)
Skin: Warm and Dry
Neuro: Alert. Awake. Confused/Altered
Psych: Calm

Assessment/Plan
Acute Hallucinations
Concern for Acute Toxic Metabolic Encephalopathy
Pneumonia vs. Atelectasis at the Lung Bases
New Leukocytosis on May 09, 2023 morning
-UA does not suggest UTI
-CXR (possible atelectasis vs. pneumonia at the lung bases), TSH - OK, B1 - normal, B12 - OK, folate - OK, ammonia - OK, coags - OK, magnesium - OK, phosphorus - OK, AM cortisol - OK, serum osmolality - slightly elevated at 304
-Continue Rocephin and PO Doxycycline given possible pneumonia on CXR
-CT Head - IMPRESSION (as per radiologist's report):
'1. ��Moderate-sized chronic subdural hygroma�overlying the lateral convexity of the right frontal and parietal lobes�causing mild mass effect�which is not definitively changed from 12/17/2020.
2. 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
3. � Severe white matter leukoaraiosis in the frontal and parietal lobes.
4. � Mild diffuse cerebral and cerebellar volume loss.
5. ��Severe intracranial calcific atherosclerotic disease.'
-UDS negative
-Patient is still having hallucinations and agitation
-Neurosurgery consulted, recommendations appreciated
-Psychiatry consulted, recommendations appreciated
-Neurology consulted, recommendations appreciated: patient likely has underlying dementia and a significant worsening due to exacerbation of same
-Infectious Disease consulted, recommendations appreciated
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
-Continue acyclovir 800 mg IV every 8 hours.
-Patient cannot get MRI brain due to plates in his head
-Recheck CT of the head ordered on May 13, 2023
-Patient's Gloria refused on May 12, 2023 for patient to get lumbar puncture after the reasons for doing a lumbar puncture were explained to her
Left Eye Mild Purulence
-Spoke on May 08, 2023 with on-call marketing automation specialist Dr. Vivi Mills and shared (with Dr. Prince Mills) photo of patient's eye with patient's 's permission
-Based on history and exam it looks like suspected blepharitis
-Warm compresses
-Eyelid Scrubs
-Erythromycin ointment TID
Right Lower Extremity Wound
Chronic Right Lower Extremity Erythema
-Caused by trauma?
-Right ankle x-ray showed: osteopenia and vascular calcification/atherosclerosis
-Patient's reports that patient has had this redness for a long time--and it actually looks better than usual
-Will consider ID consult
-Wound care
Intermittent Diarrhea with Dark Black Stools - thought to be from iron medication and Hgb normal on admission. F/u outpatient.
Coronary artery disease status post stents - continue Aspirin, Isosorbide Mononitrate and Atenolol
Solitary kidney (since childhood) - monitor renal function; minimize/avoid nephrotoxic agents
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
History of signs and symptoms of cognitive impairment
History of speech difficulty (in 2020)
Anemia - Hgb normal on admission. Continue home ferrous sulfate. Continue home Vitamin B12.
Hypertension - SBP was previously elevated to 170s, now 140s - continue home nitrate, Bumex and beta benigno
Hyperlipidemia
COPD - stable. Continue home BiPAP,
Sleep apnea
BPH
Gout
Osteoarthritis
Bilateral hearing impairment
Cataracts
DVT PPx:�Lovenox
Diet: IDDSI 4 and IDDSI 2 Mildly Thick/[place] - I spoke with patient's Gloria on May 12, 2023 and patient's was adamant in patient continuing a solid diet despite the risks of aspiration pneumonia, as discussed with speech (who recommended
NPO at this time to be safe)
Code Status:�DNR (Hospitalist confirmed this with patient's at the time of admission)
On May 09, 2023, I spoke with patient's Gloria and patient's son over the phone at [phone].
On May 12, 2023, I spoke with patient's Gloria inside the patient's room.
Anticipated Discharge: > 48 hours
Subjective/Interval History
-
Date of Service: May 13, 2023
Patient was seen and examined. He appeared to be confused but awake and says incomprehensible words this morning.
Objective Data
-
Labs:
Laboratory Results
05/13/23
05:48
WBC 10.3
Hgb 11.6 L
Hct 35.2 L
Plt Count 241
Sodium 141
Potassium 4.6
Chloride 103
Carbon Dioxide 31 H
BUN 34 H
Creatinine 1.1
Glucose 107 H
Calcium 8.9
Vital Signs:
Vital Signs
Temp Pulse Resp BP Pulse Ox
98.8 F 79 18 113/62 92
05/13/23 16:00 05/13/23 16:00 05/13/23 16:00 05/13/23 16:00 05/13/23 16:00
I&O
05/12/23 05/13/23 05/14/23
06:59 06:59 06:59
Intake Total 1470 / 1470
Output Total 1400 / 1400 1150 / 1150
Balance 70 / 70 -1150 / -1150
[2023-05-13] MEDS: LIPITOR PO ×2 (17:47→17:55)
[2023-05-13] MEDS: LOVENOX 40 MG SC (17:47)
[2023-05-13] MEDS: VIBRAMYCIN PO (22:13)
[2023-05-13] MEDS: TENORMIN PO (22:13)
[2023-05-14 06:00] VITALS: BMI 27.5
[2023-05-14 06:00] LABS: Hematocrit 36.5 % (39.0-52.0); Hemoglobin 11.5 g/dL (13.0-18.0); Mean Corp Hgb Conc. 31.5 g/dL (33.0-37.0); Mean Corpuscular Hgb 28.3 pg (27.0-31.0); Mean Corpuscular Volume 89.9 fL (80.0-94.0); Platelet Count 235 10^3/uL (130-400); Red Blood Cell Count 4.06 10^6/uL (4.70-6.10); Red Cell Dist. Width 14.6 % (11.5-14.5)
[2023-05-14 06:24] LABS: Blood Urea Nitrogen 34 mg/dl (9-20); Calcium 8.3 mg/dl (8.4-10.2); Carbon Dioxide 30 mmol/L (22-30); Chloride 108 mmol/L (98-107); Estimated Creatinine Clearance 35 ml/min; Glucose 100 mg/dl (70-99); Potassium 4.1 mmol/L (3.5-5.1); Sodium 141 mmol/L (135-145); eGFR 48.65
[2023-05-14 07:32] VITALS: BP 146/94
[2023-05-14] MEDS: ZOVIRAX INJECTION 266 MG IV ×2 (07:56→22:12)
--- NOTE | 2023-05-14 09:17 | W.PN.ID1 ---
Date of Service
Date of Service: May 14, 2023
Today's Communication
See below.
Assessment / Plan
Change in mental status/encephalopathy.
- TME? Viral encephalopathy?
NESTOR
Leukocytosis - resolved
CAD
COPD
HTN
Dyslipidemia
NORA
BPH
Gout
Osteoarthritis
Recommendations:
Encephalopathy persists.
Current presentation concerning for HSV or VZV encephalopathy, as per Dr. Shepard
refused LP and brain MRI due to hardware in head.
On empiric acyclovir 800 mg IV every 8 hours (d4). Reduce dose to 800mg IV q12 due to NESTOR.
Monitor renal function while on acyclovir.
Unlikely PNA. DC ceftriaxone and po doxy (ordered by hospitalist).
Chief Complaint
-: Other (Hallucinations)
Subjective / Review of Systems
Per 1:1 sitter, pt confused.
Per nurse unable to take po doxy.
Vital Signs / Physical Exam
Vital Signs
Vital Signs
Temp Pulse Resp BP Pulse Ox
97.8 F 91 16 146/94 97
05/14/23 07:32 05/14/23 07:32 05/14/23 07:32 05/14/23 07:32 05/14/23 07:32
Physical Exam
Constitutional: Acutely Ill
Oropharyngeal: Benign
Cardiovascular: Regular Rate and S1/S2
Pulmonary: Clear
Gastrointestinal: Soft, Non Tender and Non Distended
Neurological: Other (lethargic)
Objective Data
Lab Data
Lab Results
05/14/23 05:39
05/14/23 05:39
PT 13.9 Sec (11.4-14.6) 05/08/23 13:06
INR 1.09 05/08/23 13:06
APTT 37.7 Sec (23.4-35.0) H 05/08/23 13:06
Estimated Creat Clear 35 ml/min 05/14/23 05:39
Lactic Acid 1.0 mmol/L (0.7-2.0) 05/08/23 03:06
Total Bilirubin 0.6 mg/dl (0.2-1.3) 05/08/23 03:06
AST 54 U/L (17-59) 05/08/23 03:06
ALT 44 U/L (0-50) 05/08/23 03:06
Alkaline Phosphatase 124 U/L (38-126) 05/08/23 03:06
Most recent labs reviewed.
Micro Results:
05/08/23 13:06 Blood Culture - Final
Blood/Venous No Growth - Final Report
05/08/23 03:06 Blood Culture - Final
Blood/Venous No Growth - Final Report
05/09/23 10:10 MRSA Screen - Final
Nose No Methicillin Resistant Staphylococcus aureus isolated.
05/09/23 16:07 Influenza Types A & B (VOLODYMYR) - Final
Nasal Swab Negative for Influenza A & B, NAAT
Negative results must be combined with clinical observations
and patient history.
Nucleic Acid Amplification test (NAAT)performed on the
[employer] platform.
Imaging:
05/09/2023 CXR (2 view): No pulmonary edema seen. Suboptimal inspiration limits utility of exam. There may be mild parenchymal airspace disease in both lung bases. Not clear whether subsegmental atelectasis or bibasilar pneumonia.
[2023-05-14] MEDS: KCL PO (09:18)
[2023-05-14] MEDS: MAG-TAB SR PO (09:18)
[2023-05-14] MEDS: OCUVITE SOFTGEL PO (09:18)
[2023-05-14] MEDS: FEOSOL PO (09:18)
[2023-05-14] MEDS: TENORMIN PO ×3 (09:18→21:17)
[2023-05-14] MEDS: ASPIR LOW (ENTERIC COATED) PO (09:18)
[2023-05-14] MEDS: ISORDIL PO (09:18)
[2023-05-14] MEDS: VITAMIN D3 (cholecalciferol) PO (09:19)
[2023-05-14] MEDS: ZINC SULFATE PO (09:19)
[2023-05-14] MEDS: VITAMIN B-12 PO (09:19)
[2023-05-14] MEDS: ERYTHROMYCIN 0.5% OPHTHALMIC OINTMENT 1 APPLIC OPHTH ×3 (09:19→21:14)
[2023-05-14] MEDS: VITAMIN C PO (09:19)
[2023-05-14] MEDS: VIBRAMYCIN PO (09:30)
[2023-05-14 12:42] LABS: Venous Blood Gas B.E. 4.5 mmol/L (-4 to +4); Venous Blood Gas HCO3 31.1 mmol/L (22-27); Venous Blood Gas O2 Sat % 99.7 %; Venous Blood Gas pCO2 55 mmHg (35-48); Venous Blood Gas pH 7.36 (7.32-7.43); Venous Blood Gas pO2 195 mmHg (30-50)
[2023-05-14 12:45] LABS: Venous Blood Gas O2 Therapy 90
[2023-05-14] MEDS: NSS 1000 IV (13:46)
--- NOTE | 2023-05-14 14:08 | CON.PUL ---
Consultation
Consultation Request
Date/Time Consultation Requested: 05/14/2023
Date/Time Consultation Performed: 05/14/2023
Requesting Provider: Dr. Segovia
Performing Provider: Dr. Pantera Jang
Reason for Consultation: Chronic hypercapnic respiratory failure
Medical History
-
History of Present Illness:
88-year-old man with history of coronary Tory disease post stents, solitary kidney since childhood, stainless steel in the head cannot get MRI, cognitive impairment, history of speech difficulty since 2020, anemia, hypertension, COPD, obstructive
sleep apnea, BPH, gout, osteoarthritis, bilateral hearing impairment, chronic anemia presented with hallucination the day prior admission.
Unable to provide any history.
Social History
Tobacco: Non-smoker
Alcohol: None
Drug: None
Personal:
Living: Other (With )
Family History
Family History: Unable to Obtain
Allergies / Home Medications
Allergies
Allergy/AdvReac Type Severity Reaction Status Date / Time
gramicidin D Allergy SORES GET Verified 05/08/23 00:46
WORSE
latex Allergy Rash Verified 05/08/23 00:46
neomycin Allergy SORES GET Verified 05/08/23 00:46
WORSE
NSAIDS (Non-Steroidal Allergy JUST Verified 05/08/23 00:46
Anti-Inflamma GENERALLY
DON'T TAKE
oxycodone Allergy 'WAY OUT Verified 05/08/23 00:46
IN SPACE'
polymyxin B Allergy SORES GET Verified 05/08/23 00:46
WORSE
shellfish derived Allergy gout Verified 05/08/23 00:46
Sulfa (Sulfonamide Allergy Rash 'GET Verified 05/08/23 00:46
Antibiotics) SICK' -
VOMITING
trimethoprim Allergy Unknown Verified 05/08/23 00:46
Home Medications
Medication Instructions Recorded Confirmed Last Taken Type
magnesium 250 mg tablet 100 mg PO DAILY Electrolyte 10/24/16 05/08/23 05/07/23 History
Repletion
zinc gluconate 50 mg tablet 50 mg PO DAILY Supplement 10/24/16 05/08/23 05/07/23 History
isosorbide mononitrate 10 mg tablet 5 mg PO DAILY Heart 01/17/17 05/08/23 05/07/23 History
Disease/Condition
ascorbic acid (vitamin C) 500 mg 1,000 mg PO DAILY Supplement 12/16/20 05/08/23 05/07/23 History
tablet (Vitamin C)
atenolol 25 mg tablet 12.5 mg PO BID Blood pressure 12/16/20 05/08/23 05/07/23 History
bumetanide 1 mg tablet 0.5 mg PO MOTH Electrolyte 12/16/20 05/08/23 05/04/23 History
Repletion
cholecalciferol (vitamin D3) 25 1,000 units PO DAILY Supplement 12/16/20 05/08/23 05/07/23 History
mcg (1,000 unit) tablet
cyanocobalamin (vitamin B-12) 1,000 mcg PO DAILY Supplement 12/16/20 05/08/23 05/07/23 History
1,000 mcg tablet
ferrous sulfate 325 mg (65 mg 325 mg PO DAILY Supplement 12/16/20 05/08/23 05/07/23 History
iron) tablet (FeroSul)
aspirin 81 mg tablet,delayed 81 mg PO DAILY Blood Clot 05/08/23 05/08/23 05/07/23 History
release Prevention/Tx
potassium 99 mg tablet 99 mg PO DAILY Electrolyte 05/08/23 05/08/23 05/07/23 History
Repletion
vit C 250 mg-vit E 90 mg-zinc 40 1 tab PO DAILY Eye Condition 05/08/23 05/08/23 05/07/23 History
mg-copper 1 [id number]
capsule (PreserVision AREDS-2)
Review of Systems
-
Unable to Obtain full review of systems at this time due to: Other (Hallucinations/delirium)
Vitals / Labs / Diagnostic Testing
Vital Signs
Temp Pulse Resp BP Pulse Ox
97.8 F 91 16 146/94 97
05/14/23 07:32 05/14/23 07:32 05/14/23 07:32 05/14/23 07:32 05/14/23 07:32
Lab Data
05/14/23 05:39
05/14/23 05:39
Microbiology
05/08/23 13:06 Blood/Venous Blood Culture - Final
No Growth - Final Report
05/08/23 03:06 Blood/Venous Blood Culture - Final
No Growth - Final Report
Diagnostic Testing:
Physical Exam
-
HEENT: Normocephalic
Cardiovascular: S1/S2
Respiratory: Clear and Non-Labored Respirations
GI: Soft and Non Distended
Neurology: Awake and Other (Not following commands, confused, unable to provide history.)
Skin: Warm
General: Respiratory Distress (n)
Assessment
-
88-year-old man with multiple medical problems, admitted with altered mental status. Currently being treated for possible encephalitis empirically. Workup so far has been negative. Patient has chronic CT findings. Family refused LP. I was
consulted on 05/14/2023 to evaluate for his chronic hypercapnia and mild hypoxemic respiratory failure on 2 L.
Toxic metabolic encephalopathy: Unclear etiology-workup in progress.
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
CT of the head with chronic changes as noted. Report reviewed. Images reviewed..
Acute mild respiratory insufficiency: Suspect subsegmental atelectasis/cannot rule out mild aspiration pneumonitis.
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 Not recent for acute decompensation.
Chest x-ray 05/14/2023: Reviewed, showed no acute abnormalities. Cardiomegaly which is stable. Low lung volumes.
Initial leukocytosis resolved
Conditions present prior admission:
Obstructive sleep apnea-BiPAP 6 with 2 L of oxygen.
Last time seen in the office was in 2019
Mild chronic hypercapnic respiratory failure: ABG 05/09/2023-3.30
Gout
Osteoarthritis
Bilateral hearing impairment
Cataract
Cognitive impairment
Hypertension
Hyperlipidemia
COPD-no mention of COPD on [facility].
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
DNR status
Assessment and plan:
Patient's altered mental status possibly related to encephalitis.
Currently he is alert, not following commands, unable to provide history.
Not bronchospastic on exam.
-
From the pulmonary perspective there is no evidence for decompensation.
Latest VBG from 05/14/2023 appears to be at baseline.
Patient does not have COPD based on [facility] records that were reviewed by me. Last time seen in our office for a sleep apnea was in 2019.
He does have restriction due to left hemidiaphragm paralysis-he wears BiPAP 10/6 with 2 L of oxygen.
Unfortunately due to change in mental status not a candidate wears BiPAP in here-continue to monitor closely.. Patient has his own BiPAP machine here.
Can attempt to work tonight if patient allows.
There is no evidence for decompensation, his hypercapnia does not explain his symptoms.
-
Mild oxygen desaturation likely either from subsegmental atelectasis or some aspiration pneumonitis.
Continue to observe for signs of infection
Head of the bed elevation
-
Currently empirically on acyclovir for possible encephalitis.
Continue with workup for his change in mental status
Aspiration precautions
-
Will continue to bridge will continue to follow briefly.
CT Head - :
1. ��Moderate-sized chronic subdural hygroma�overlying the lateral convexity of the right frontal and parietal lobes�causing mild mass effect�which is not definitively changed from 12/17/2020.
2. 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
3. � Severe white matter leukoaraiosis in the frontal and parietal lobes.
4. � Mild diffuse cerebral and cerebellar volume loss.
5. ��Severe intracranial calcific atherosclerotic disease.'
[2023-05-14 15:02] VITALS: BP 122/73
--- NOTE | 2023-05-14 15:46 | W.PN.NEURO.1 ---
Today's Communication / Plan
-
eeg
Neuro Assessment/Plan
Assessment
1.� � TME. Etiology ?infectious. Being treated empirically as possible viral encephalitis
2.� � Underlying cognitive impairment.
3.� � Chronic right cerebellar ischemic stroke.
4.� � Chronic, stable hygroma-- not contributing to symptoms.
Patient has the following risk factors for their symptoms:� Recent diarrhea, possible pneumonia, underlying cognitive impairment, hx stroke
Recommendations:�
-Would like to obtain MRI brain but patient is unable; reviewed repeat HCT; no acute findings--done 05/12
-Lumbar puncture refused by patient's
-EEG
-on empiric acyclovir
-Continue aspirin 81mg daily.
-reviewed CUS, mild plaque, <50% stenosis bilaterally
-Goal normotension and normothermia.
-Patient needs outpatient neuropsychological testing.
-Neurological checks per unit guidelines.
-DVT prophylaxis.
Plan
eeg
Subjective/Objective
Subjective Data
Date of Service: May 14, 2023
remains confused, agitated
Objective Data
Vital Signs
Temp Pulse Resp BP Pulse Ox
97.9 F 96 16 122/73 95
05/14/23 15:02 05/14/23 15:02 05/14/23 15:02 05/14/23 15:02 05/14/23 15:02
Lab Results
05/14/23 05:39
05/14/23 05:39
PT 13.9 Sec (11.4-14.6) 05/08/23 13:06
INR 1.09 05/08/23 13:06
APTT 37.7 Sec (23.4-35.0) H 05/08/23 13:06
Sodium 141 mmol/L (135-145) 05/14/23 05:39
Potassium 4.1 mmol/L (3.5-5.1) 05/14/23 05:39
BUN 34 mg/dl (9-20) H 05/14/23 05:39
Glucose 100 mg/dl (70-99) H 05/14/23 05:39
Calcium 8.3 mg/dl (8.4-10.2) L 05/14/23 05:39
Phosphorus Cancelled 05/08/23 10:05
LDL Cholesterol, Calc 82 mg/dl 05/12/23 05:19
Whole Bld Vitamin B1 149 nmol/L (70-180) 05/08/23 13:06
Vitamin B12 741 pg/ml (239-931) 05/08/23 13:06
Ur Buprenorphine Cancelled 05/08/23 10:06
Patient Allergies
gramicidin D Allergy (Verified 05/08/23 00:46)
SORES GET WORSE
latex Allergy (Verified 05/08/23 00:46)
Rash
neomycin Allergy (Verified 05/08/23 00:46)
SORES GET WORSE
NSAIDS (Non-Steroidal Anti-Inflamma Allergy (Verified 05/08/23 00:46)
JUST GENERALLY DON'T TAKE
oxycodone Allergy (Verified 05/08/23 00:46)
'WAY OUT IN SPACE'
polymyxin B Allergy (Verified 05/08/23 00:46)
SORES GET WORSE
shellfish derived Allergy (Verified 05/08/23 00:46)
gout
Sulfa (Sulfonamide Antibiotics) Allergy (Verified 05/08/23 00:46)
Rash 'GET SICK' - VOMITING
trimethoprim Allergy (Verified 05/08/23 00:46)
Unknown
Physical Exam
Extended Neurological Exam
Mood & Affect: Unable to Assess
Attention Span & Concentration: Other (squeezed my hand with his left hand on command for me and made eye contact, then held out his L hand on command but would not put it down, appeared to have visual hallucinations)
Memory: Unable to Assess
Tremor: Hand Tremor Absent and Head Tremor Absent
Involuntary Movement: None
Speech: Mute
Cranial Nerve II: Left Eye: Pupillary Reactivity Unremarkable and Pupillary Size Unremarkable
Cranial Nerve II: Right Eye: Pupillary Reactivity Unremarkable and Pupillary Size Unremarkable
Cranial Nerves III, IV, : Extraocular Movement: Other (blinks to threat bilaterally)
Cranial Nerve VII: Facial Symmetry: Normal Facial Symmetry
Cranial Nerve VIII: Hearing: Unable to Assess
Muscle Strength, Overall: Other (at least 3/5 in BUE; no spontaneous movement in BLE, no w/d to noxious stimulus)
--- NOTE | 2023-05-14 16:34 | W.PN.HOSP.TC ---
Today's Communication/Plan
-
EEG as per neuro
Appreciate pulm recommendations, VBG does not explain patient's mental status changes
Continue Acyclovir at a reduced dose due to NESTOR
Gentle IV fluids due to NESTOR
Assessment / Plan
Assessment / Plan
Physical Exam
General: No Apparent Distress
HEENT: Normocephalic and Other (Left eye with some crusting and purulence - improved slightly)
Respiratory: Clear
Cardiac: S1/S2 and Regular Rhythm
GI: Soft, Non Tender and Normal Bowel Sounds
Musculoskeletal: No Cyanosis, Edema, Left Lower Extremity and Edema, Right Lower Extremity. RLE erythema near ankle (chronic per patient's family)
Skin: Warm and Dry
Neuro: Alert. Awake. Confused/Altered
Psych: Calm

Assessment/Plan
Acute Hallucinations
Concern for Acute Toxic Metabolic Encephalopathy
Delirium with Waxing and Waning Mental Status
Pneumonia vs. Atelectasis at the Lung Bases
New Leukocytosis on May 09, 2023 morning
-UA does not suggest UTI
-CXR (possible atelectasis vs. pneumonia at the lung bases), TSH - OK, B1 - normal, B12 - OK, folate - OK, ammonia - OK, coags - OK, magnesium - OK, phosphorus - OK, AM cortisol - OK, serum osmolality - slightly elevated at 304
-Continue Rocephin and PO Doxycycline given possible pneumonia on CXR
-CT Head - IMPRESSION (as per radiologist's report):
'1. ��Moderate-sized chronic subdural hygroma�overlying the lateral convexity of the right frontal and parietal lobes�causing mild mass effect�which is not definitively changed from 12/17/2020.
2. 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
3. � Severe white matter leukoaraiosis in the frontal and parietal lobes.
4. � Mild diffuse cerebral and cerebellar volume loss.
5. ��Severe intracranial calcific atherosclerotic disease.'
-UDS negative
-Patient is still having hallucinations and agitation
-Neurosurgery consulted, recommendations appreciated
-Psychiatry consulted, recommendations appreciated
-Neurology consulted, recommendations appreciated: patient likely has underlying dementia and a significant worsening due to exacerbation of same
-EEG as per neurology as of May 14, 2023
-Infectious Disease consulted, recommendations appreciated
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
-Acyclovir reduced to 800 mg IV every 12 hours from 800 mg IV every 8 hours due to NESTOR on May 14, 2023
-Patient cannot get MRI brain due to plates in his head
-Recheck CT of the head ordered on May 13, 2023 -- okay
-Patient's Gloria refused on May 12, 2023 for patient to get lumbar puncture after the reasons for doing a lumbar puncture were explained to her
Acute Hypoxic Respiratory Insufficiency
-Needed nasal cannula 2 liters on May 13, 2023
-CXR was with no acute process
-Ordered VBG on 05/14/23
-Consulted pulmonary, recommendations appreciated
-Pulmonary mentioned that patient's mild oxygen desaturation is likely either from subsegmental atelectasis or some aspiration pneumonitis
Acute Kidney Injury
-Noted on May 14, 2023
-Acyclovir reduced as above
-Gentle IV fluids started
-Recheck BMP in the morning
Left Eye Mild Purulence
-Spoke on May 08, 2023 with on-call hr manager Dr. Vivi Mills and shared (with Dr. Prince Mills) photo of patient's eye with patient's 's permission
-Based on history and exam it looks like suspected blepharitis
-Warm compresses
-Eyelid Scrubs
-Erythromycin ointment TID
Right Lower Extremity Wound
Chronic Right Lower Extremity Erythema
-Caused by trauma?
-Right ankle x-ray showed: osteopenia and vascular calcification/atherosclerosis
-Patient's reports that patient has had this redness for a long time--and it actually looks better than usual
-Will consider ID consult
-Wound care
Intermittent Diarrhea with Dark Black Stools - thought to be from iron medication and Hgb normal on admission. F/u outpatient.
Coronary artery disease status post stents - continue Aspirin, Isosorbide Mononitrate and Atenolol
Solitary kidney (since childhood) - monitor renal function; minimize/avoid nephrotoxic agents
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
History of signs and symptoms of cognitive impairment
History of speech difficulty (in 2020)
Anemia - Hgb normal on admission. Continue home ferrous sulfate. Continue home Vitamin B12.
Hypertension - SBP was previously elevated to 170s, now 140s - continue home nitrate, Bumex and beta benigno
Hyperlipidemia
COPD? - per pulm no COPD on [facility] records - maybe he sees another doctor somewhere else who diagnosed him with COPD? Stable. Continue home BiPAP.
Sleep apnea
BPH
Gout
Osteoarthritis
Bilateral hearing impairment
Cataracts
DVT PPx:�Lovenox
Diet: IDDSI 4 and IDDSI 2 Mildly Thick/[place] - I spoke with patient's Gloria on May 12, 2023 and patient's was adamant in patient continuing a solid diet despite the risks of aspiration pneumonia, as discussed with speech (who recommended
NPO at this time to be safe)
Code Status:�DNR (Hospitalist confirmed this with patient's at the time of admission)
On May 09, 2023, I spoke with patient's Gloria and patient's son over the phone at [phone].
On May 12, 2023, I spoke with patient's Gloria inside the patient's room.
Anticipated Discharge: > 48 hours
Subjective/Interval History
-
Date of Service: May 14, 2023
Patient was seen and examined. He remained confused and at times, agitated.
Objective Data
-
Labs:
Laboratory Results
05/14/23
05:39
WBC 9.0
Hgb 11.5 L
Hct 36.5 L
Plt Count 235
Sodium 141
Potassium 4.1
Chloride 108 H
Carbon Dioxide 30
BUN 34 H
Creatinine 1.4 H
Glucose 100 H
Calcium 8.3 L
Vital Signs:
Vital Signs
Temp Pulse Resp BP Pulse Ox
97.9 F 96 16 122/73 95
05/14/23 15:02 05/14/23 15:02 05/14/23 15:02 05/14/23 15:02 05/14/23 15:02
I&O
05/13/23 05/14/23 05/15/23
06:59 06:59 06:59
Intake Total 1142 / 1142 0 / 0
Output Total 2400 / 2400 500 / 500
Balance -1258 / -1258 -500 / -500
[2023-05-14] MEDS: LIPITOR PO (17:50)
[2023-05-14] MEDS: LOVENOX 40 MG SC (17:51)
[2023-05-14 18:15] LABS: Glucose - Point of Care 94 mg/dl (70-99)
--- NOTE | 2023-05-14 18:26 | PTCARENOTE ---
pt has been lethargic in nature majority of the shift. towards the end of the shift pt perked up, was able to identify he is in a hospital and who he is, reported that the year was . family currently at bedside interacting with pt and have
been throughout the shift and have been kept up to date. pt remains with minimal verbalization, garbled when he does speak a word or two. pt did not eat today d/t AMS; blood sugar 94 in the 1800 hour. med not administered PO d/t AMS and
aspiration risk. MD Segovia aware of pts condition throughout the shift. pt remains on 2L NC with stable vitals throughout the shift. pt producing urine via condom catheter, no bm, just a smear today. IVF continue to infuse per order into
left AC with out issue. one to one completed at 1500 with video monitoring started as pts behavior did not necessitate this level of observation. Q 2 turns continue. rails up x 3, bed in low position. care plan continues to be followed.
[2023-05-14 23:10] VITALS: BP 98/73
[2023-05-15 04:30] VITALS: BP 119/90
[2023-05-15 05:39] VITALS: BMI 27.2
[2023-05-15] MEDS: NSS 1000 IV (05:58)
[2023-05-15 07:29] LABS: Hematocrit 34.3 % (39.0-52.0); Hemoglobin 10.6 g/dL (13.0-18.0); Mean Corp Hgb Conc. 30.9 g/dL (33.0-37.0); Mean Corpuscular Hgb 28.3 pg (27.0-31.0); Mean Corpuscular Volume 91.5 fL (80.0-94.0); Mean Platelet Volume 10.2 fL (7.4-10.4); Platelet Count 230 10^3/uL (130-400); Red Blood Cell Count 3.75 10^6/uL (4.70-6.10); Red Cell Dist. Width 14.4 % (11.5-14.5); White Blood Cell Count 7.8 10^3/uL (4.8-10.8)
[2023-05-15 07:47] LABS: Blood Urea Nitrogen 36 mg/dl (9-20); Calcium 7.7 mg/dl (8.4-10.2); Carbon Dioxide 25 mmol/L (22-30); Chloride 111 mmol/L (98-107); Estimated Creatinine Clearance 37 ml/min; Glucose 85 mg/dl (70-99); Potassium 3.7 mmol/L (3.5-5.1); Sodium 146 mmol/L (135-145); eGFR 53.17
[2023-05-15 07:55] VITALS: BP 112/68
--- NOTE | 2023-05-15 09:12 | W.PN.PUL3 ---
Today's Communication / Plan
-
Continue management per primary service, neurology
Patient not using BiPAP during hospital stay
Assess oxygen requirements
Minimize sedation
We will sign off. Please call with questions
Assessment
-
88-year-old man with multiple medical problems, admitted with altered mental status. Currently being treated for possible encephalitis empirically. Workup so far has been negative. Patient has chronic CT findings. Family refused LP. I was
consulted on 05/14/2023 to evaluate for his chronic hypercapnia and mild hypoxemic respiratory failure on 2 L.
Toxic metabolic encephalopathy: Unclear etiology-workup in progress.
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
CT of the head with chronic changes as noted. Report reviewed. Images reviewed..
Acute mild respiratory insufficiency: Suspect subsegmental atelectasis/cannot rule out mild aspiration pneumonitis.
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 Not recent for acute decompensation.
Chest x-ray 05/14/2023: Reviewed, showed no acute abnormalities. Cardiomegaly which is stable. Low lung volumes.
Initial leukocytosis resolved
Conditions present prior admission:
Obstructive sleep apnea-BiPAP 12/02 with 2 L of oxygen.
Last time seen in the office was in 2019
Mild chronic hypercapnic respiratory failure: ABG 05/09/2023-3.30
Gout
Osteoarthritis
Bilateral hearing impairment
Cataract
Cognitive impairment
Hypertension
Hyperlipidemia
COPD-no mention of COPD on [facility].
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
DNR status
Assessment and plan:
At this time, patient appears to be comfortable from pulmonary standpoint
Patient's altered mental status possibly related to encephalitis.
He is arousable this morning from sleep, withdrawing with stimuli, not conversant
Chest exam is clear but poor inspiratory effort is noted
Moving forward
From the pulmonary perspective there is no evidence for decompensation.
Latest VBG from 05/14/2023 appears to be at baseline.
Patient does not have COPD based on [facility] records that were reviewed by me. Last time seen in our office for a sleep apnea was in 2019.
He does have restriction due to left hemidiaphragm paralysis-he wears BiPAP 12/02 with 2 L of oxygen.
Unfortunately due to change in mental status not a candidate wears BiPAP in here-continue to monitor closely.. Patient has his own BiPAP machine here.
Can attempt to work tonight if patient allows.
Has not worn BiPAP over the past few days in the hospital
There is no evidence for decompensation, his hypercapnia does not explain his symptoms.
Mild oxygen desaturation likely either from subsegmental atelectasis or some aspiration pneumonitis
Wean off oxygen
Continue to observe for signs of infection
Head of the bed elevation
97% on 2 L, last checked 05/13
Follow
Currently empirically on acyclovir for possible encephalitis.
Continue with workup for his change in mental status
Aspiration precautions
DNR status noted
We will sign off. Please call with questions
CT Head - :
1. ��Moderate-sized chronic subdural hygroma�overlying the lateral convexity of the right frontal and parietal lobes�causing mild mass effect�which is not definitively changed from 12/17/2020.
2. 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
3. � Severe white matter leukoaraiosis in the frontal and parietal lobes.
4. � Mild diffuse cerebral and cerebellar volume loss.
5. ��Severe intracranial calcific atherosclerotic disease.'
Subjective Data
-
Date of Service:
Date of Service: May 15, 2023
Subjective:
Patient examined earlier this morning. Arousable to stimuli but does not answer questions, does not follow commands. Opens eyes. Appears comfortable. 96% on 2 L
Objective Data
Data Reviewed
Vital Signs / I&O / Oxygen:
Vital Signs
Temp Pulse Resp BP Pulse Ox
98.0 F 84 18 112/68 96
05/15/23 07:55 05/15/23 07:55 05/15/23 07:55 05/15/23 07:55 05/15/23 07:55
Intake and Output
05/14/23 05/15/23 05/16/23
06:59 06:59 06:59
Intake Total 1142 / 1142 1250 / 1250
Output Total 2400 / 2400 1200 / 1200
Balance -1258 / -1258 50 / 50
SaO2 96
Nasal Cannula flow liters per 3
minute
Physical Exam
General: Comfortable and Other (Dry mucosa)
HEENT: Normocephalic and Anicteric
Cardiovascular: S1-S2, Regular Rhythm, Murmur (n), Rub (n) and Peripheral Edema (n)
Respiratory: Wheeze (n), Crackles (n), Rhonchi (n), Non-Labored Respirations and Other (Poor inspiratory effort)
GI: Soft, Non Distended and Non Tender
Neurology: Lethargic (Opens eyes to stimuli, withdraws extremities to stimuli. Not conversant)
Skin: Cyanosis (n), Jaundice (n), Rash (n) and Bruising (Few scattered)
Labs/Micro/Reports
Lab Data
05/15/23 07:03
05/15/23 07:03
Microbiology
05/08/23 13:06 Blood/Venous Blood Culture - Final
No Growth - Final Report
05/08/23 03:06 Blood/Venous Blood Culture - Final
No Growth - Final Report
[2023-05-15] MEDS: ZOVIRAX INJECTION 266 MG IV ×2 (09:34→21:04)
[2023-05-15] MEDS: ERYTHROMYCIN 0.5% OPHTHALMIC OINTMENT 1 APPLIC OPHTH ×3 (09:36→21:09)
--- NOTE | 2023-05-15 09:39 | W.PN.NEURO.1 ---
Documented by User: Natali Hernandez NP 05/15/23 10:57
Today's Communication / Plan
-
.
Neuro Assessment/Plan
Assessment
-CT Head 05/13/23: No acute intracranial pathology. Moderate chronic right subdural hygroma. stable. Moderate atrophy. Stable. Moderate periventricular small vessel ischemic disease. Stable. Old bilateral cerebellar infarcts. Stable.
-Carotid Ultrasound 05/12/23: Mild amount of calcified plaque within BOTH carotid bulbs and proximal internal carotid arteries causing less than 50% luminal narrowing bilaterally. Antegrade flow within both vertebral arteries.
1.� � TME. Etiology ?infectious. Being treated empirically as possible viral encephalitis
2.� � Underlying cognitive impairment.
3.� � Chronic bilateral cerebellar ischemic stroke.
4.� � Chronic, stable hygroma, unchanged from 2020 imaging-- not contributing to symptoms.
Patient has the following risk factors for their symptoms:� Recent diarrhea, possible pneumonia, underlying cognitive impairment, hx stroke
Plan
-Patient is unable to have MRI brain, reviewed repeat HCT; no acute findings--done 05/12.
-Lumbar puncture refused by patient's
-Routine EEG today.
-On empiric acyclovir
-Continue aspirin 300mg rectal daily for stroke prevention, change to aspirin 81mg PO daily when cleared by ST.
-Reviewed CUS, mild plaque, <50% stenosis bilaterally
-Goal normotension and normothermia.
-LDL goal <70. LDL is 82. Resume atorvastatin 40mg daily when cleared by ST.
-Goal normoglycemia, hbA1C is 5.6.
-Patient needs outpatient neuropsychological testing.
-Neurological checks per unit guidelines.
-PT/OT/ST evaluations.
-DVT prophylaxis.
Subjective/Objective
Subjective Data
Date of Service: May 15, 2023
No acute events overnight. Patient reports that he knows he is in the hospital but he does not understand what has been going on. He offers no complaints. No sign of visual hallucinations at present..
Objective Data
Vital Signs
Temp Pulse Resp BP Pulse Ox
98.0 F 84 18 112/68 96
05/15/23 07:55 05/15/23 07:55 05/15/23 07:55 05/15/23 07:55 05/15/23 07:55
Lab Results
05/15/23 07:03
05/15/23 07:03
PT 13.9 Sec (11.4-14.6) 05/08/23 13:06
INR 1.09 05/08/23 13:06
APTT 37.7 Sec (23.4-35.0) H 05/08/23 13:06
Sodium 146 mmol/L (135-145) H 05/15/23 07:03
Potassium 3.7 mmol/L (3.5-5.1) 05/15/23 07:03
BUN 36 mg/dl (9-20) H 05/15/23 07:03
Glucose 85 mg/dl (70-99) 05/15/23 07:03
Calcium 7.7 mg/dl (8.4-10.2) L 05/15/23 07:03
Phosphorus Cancelled 05/08/23 10:05
LDL Cholesterol, Calc 82 mg/dl 05/12/23 05:19
Whole Bld Vitamin B1 149 nmol/L (70-180) 05/08/23 13:06
Vitamin B12 741 pg/ml (239-931) 05/08/23 13:06
Ur Buprenorphine Cancelled 05/08/23 10:06
Patient Allergies
gramicidin D Allergy (Verified 05/08/23 00:46)
SORES GET WORSE
latex Allergy (Verified 05/08/23 00:46)
Rash
neomycin Allergy (Verified 05/08/23 00:46)
SORES GET WORSE
NSAIDS (Non-Steroidal Anti-Inflamma Allergy (Verified 05/08/23 00:46)
JUST GENERALLY DON'T TAKE
oxycodone Allergy (Verified 05/08/23 00:46)
'WAY OUT IN SPACE'
polymyxin B Allergy (Verified 05/08/23 00:46)
SORES GET WORSE
shellfish derived Allergy (Verified 05/08/23 00:46)
gout
Sulfa (Sulfonamide Antibiotics) Allergy (Verified 05/08/23 00:46)
Rash 'GET SICK' - VOMITING
trimethoprim Allergy (Verified 05/08/23 00:46)
Unknown
LDL Level: >70, statin ordered
Review of Systems
-
Unable to obtain full review of systems at this time due to: Other (confusion)
History Source: Patient
Respiratory: Negative Cough or Trouble Breathing
Cardiac: Negative Chest Pain or Palpitations
Neuro: Negative Dizzy, Headache, Weakness, Numbness, Ataxia or Speech Problem
Physical Exam
-
General: No Apparent Distress
Eyes: No Ptosis and PERRLA
HEENT: Normocephalic and Atraumatic
Neck: Full Range of Motion
Respiratory: No Dyspnea
GI: Non-distended
Skin: Other (RLE with venous changes.)
Extremities: No Clubbing, No Cyanosis and No Edema
Psych: Confused
Extended Neurological Exam
Mood & Affect: Mood Unremarkable and Affect Unremarkable
Attention Span & Concentration: Awake, Alert, Interactive and Severe Difficulty with 2 Step Request
Memory: Negative Unremarkable (oriented to place and self, not situation or time)
Tremor: Asterixis
Speech: Quantity Unremarkable, Rate of Production Unremarkable and Dysarthric
Cranial Nerve II: Left Eye: Pupillary Reactivity Unremarkable, Pupillary Size Unremarkable and Visual Gómez Intact
Cranial Nerve II: Right Eye: Pupillary Reactivity Unremarkable, Pupillary Size Unremarkable and Visual Gómez Intact
Cranial Nerves III, IV, : Extraocular Movement: Reduced (reduced upgaze)
Cranial Nerve V: Facial Sensation: Intact to Light Touch
Cranial Nerve VII: Facial Symmetry: Normal Facial Symmetry
Cranial Nerve VIII: Hearing: Grossly Reduced
Cranial Nerves IX, X: Palate Movement: Palate Elevation Symmetric
Cranial Nerve XII: Tongue Protusion: Midline
Muscle Strength, Overall: Reduced Throughout (06/01 thoughout)
Muscle Bulk & Tone: Bulk Unremarkable and Tone Unremarkable
Pronator Drift: No Drift in Upper Extremities and No Drift in Lower Extremities
Deep Tendon Reflexes: Clonus (one beat of clonus in b/l achiles), Absent (absent b/l patellar) and Otherwise Unremarkable
Cold Sensation: Unable to Assess
Vibration Sensation: Unable to Assess
Touch Sensation: Unable to Assess
Coordination: [id number]-[id number]-[id number] Testing Unremarkable
Babinski Sign: Absent Bilaterally
Gait & Station: Unable to Assess
Data Reviewed
-
CT Head: Report Reviewed and Image Reviewed
EEG: Ordered and Pending
Labs: Report Reviewed
Lipid Profile: Report Reviewed
HgbA1C: Report Reviewed
Reviewed with: Physician and Patient
Medications
-
Active Medications
Generic Name Dose Route Start Last Admin
Trade Name Freq PRN Reason Stop Dose Admin
Acetaminophen 650 mg 05/13/23 21:30
Acetaminophen 650 Mg Rectal Suppository RECTAL 06/10/23 21:29
Q4HPRN PRN
mild pain/MAXWELL/temp>100.5
Aspirin 300 mg 05/15/23 09:00
Aspirin 300 Mg Rectal Suppository RECTAL 06/12/23 08:59
DAILY DAT
Enoxaparin Sodium 40 mg 05/08/23 18:00 05/14/23 17:51
Enoxaparin Sodium 40 Mg/0.4 Ml Syringe SC 06/05/23 17:59 40 mg
QPM DAT Administration
Erythromycin 0 applic 05/08/23 16:00 05/14/23 21:14
Erythromycin 0.5% (Ophthalmic Ointment) 1 Gram Tube OPHTH 05/18/23 15:59 1 applic
TID DAT Administration
Acyclovir Sodium 800 mg/ 266 mls @ 250 mls/hr 05/14/23 20:00 05/14/23 22:12
Sodium Chloride IV 05/24/23 19:59 266 mls
Q12H DAT Administration
Dextrose 1,000 mls @ 100 mls/hr 05/15/23 09:00
D5w IV
.Q10H DAT
Sodium Chloride 0 flush 05/08/23 11:00
Sodium Chloride 0.9% (Flush) Syringe IV 06/05/23 10:59
PER PROTOCOL DAT
Home Medications
Medication Instructions Recorded
magnesium 250 mg tablet 100 mg PO DAILY Electrolyte 10/24/16
Repletion
zinc gluconate 50 mg tablet 50 mg PO DAILY Supplement 10/24/16
isosorbide mononitrate 10 mg tablet 5 mg PO DAILY Heart 01/17/17
Disease/Condition
ascorbic acid (vitamin C) 500 mg 1,000 mg PO DAILY Supplement 12/16/20
tablet (Vitamin C)
atenolol 25 mg tablet 12.5 mg PO BID Blood pressure 12/16/20
bumetanide 1 mg tablet 0.5 mg PO MOTH Electrolyte 12/16/20
Repletion
cholecalciferol (vitamin D3) 25 1,000 units PO DAILY Supplement 12/16/20
mcg (1,000 unit) tablet
cyanocobalamin (vitamin B-12) 1,000 mcg PO DAILY Supplement 12/16/20
1,000 mcg tablet
ferrous sulfate 325 mg (65 mg 325 mg PO DAILY Supplement 12/16/20
iron) tablet (FeroSul)
aspirin 81 mg tablet,delayed 81 mg PO DAILY Blood Clot 05/08/23
release Prevention/Tx
potassium 99 mg tablet 99 mg PO DAILY Electrolyte 05/08/23
Repletion
vit C 250 mg-vit E 90 mg-zinc 40 1 tab PO DAILY Eye Condition 05/08/23
mg-copper 1 [id number]
capsule (PreserVision AREDS-2)

Documented by User: Lashon Scott MD 05/15/23 15:20
Today's Communication / Plan
-
.
Neuro Assessment/Plan
Assessment
1.� � Multifactorial encephalopathy(vascular, metabolic(hypernatremia), inflammatory, neurodegenerative?), clinically improved
2.� � Chronic bilateral cerebellar infarcts
3.� � Chronic R hemispheric hygroma, radiographically stable since 2020
Plan
-Please clarify contraindications to brain MRI(consider orbital XR) before obtaining brain MRI wo jose angel
-Follow up ESR/CRP, CPK, paraneoplastic panel
-Lumbar puncture refused by patient's
-ASA 81 mg QD for secondary stroke prevention
-ID follow up, on empiric acyclovir
-DVT prophylaxis.
Subjective/Objective
Subjective Data
Date of Service: May 15, 2023
No acute events overnight. Patient reports that he knows he is in the hospital but he does not understand what has been going on. He offers no complaints.
Chart review: Mr. Lanza is an 88 year old man who presented to [facility] on 05/08/2023 with encephalopathy. The patient thought that his washing machine was flooding and the house was on fire. HIs symptoms were associated with
agitation. He sustained an unwitnessed fall on 05/11/2023.
The patient has had at least 2 months history of intermittent auditory(hearing a radio, music) and visual hallucinations.
CT head(05/13/2023)-bilateral cerebellar infarcts, moderate chronic R subdural hygroma, atrophy.
PMH: R moderate chronic subdural hygroma with 4 mm right to left midline shift, TIA/�L ICA 50-69% stenosis, MCI, CAD, HTN, DLP, CKD, R kidney agenesis, anemia, COPD, BPH, NORA, gout, OA, osteoporosis, SNHL, macular degeneration
PSH: ear surgery in 20s, PTCI, BL cataract surgery, R shoulder surgery, hernia repair, TKA. TURP, CTS
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
FH: CAD
Vital Signs and Labs
-
Vital Signs and Labs:
Vital Signs
Temp Pulse Resp BP Pulse Ox
37.1 C 84 18 110/65 95
05/15/23 11:39 05/15/23 11:39 05/15/23 11:39 05/15/23 11:39 05/15/23 11:39
Lab Results
05/15/23 07:03
05/15/23 07:03
PT 13.9 Sec (11.4-14.6) 05/08/23 13:06
INR 1.09 05/08/23 13:06
APTT 37.7 Sec (23.4-35.0) H 05/08/23 13:06
Sodium 146 mmol/L (135-145) H 05/15/23 07:03
Potassium 3.7 mmol/L (3.5-5.1) 05/15/23 07:03
BUN 36 mg/dl (9-20) H 05/15/23 07:03
Glucose 85 mg/dl (70-99) 05/15/23 07:03
Calcium 7.7 mg/dl (8.4-10.2) L 05/15/23 07:03
Phosphorus Cancelled 05/08/23 10:05
LDL Cholesterol, Calc 82 mg/dl 05/12/23 05:19
Whole Bld Vitamin B1 149 nmol/L (70-180) 05/08/23 13:06
Vitamin B12 741 pg/ml (239-931) 05/08/23 13:06
Ur Buprenorphine Cancelled 05/08/23 10:06
Home Medications
-
Home Medications
magnesium 250 mg tablet 100 mg PO DAILY Electrolyte Repletion 10/24/16
zinc gluconate 50 mg tablet 50 mg PO DAILY Supplement 10/24/16
isosorbide mononitrate 10 mg tablet 5 mg PO DAILY Heart Disease/Condition 01/17/17
ascorbic acid (vitamin C) 500 mg tablet (Vitamin C) 1,000 mg PO DAILY Supplement 12/16/20
atenolol 25 mg tablet 12.5 mg PO BID Blood pressure 12/16/20
bumetanide 1 mg tablet 0.5 mg PO MOTH Electrolyte Repletion 12/16/20
cholecalciferol (vitamin D3) 25 mcg (1,000 unit) tablet 1,000 units PO DAILY Supplement 12/16/20
cyanocobalamin (vitamin B-12) 1,000 mcg tablet 1,000 mcg PO DAILY Supplement 12/16/20
ferrous sulfate 325 mg (65 mg iron) tablet (FeroSul) 325 mg PO DAILY Supplement 12/16/20
aspirin 81 mg tablet,delayed release 81 mg PO DAILY Blood Clot Prevention/Tx 05/08/23
potassium 99 mg tablet 99 mg PO DAILY Electrolyte Repletion 05/08/23
vit C 250 mg-vit E 90 mg-zinc 40 mg-copper 1 [id number] capsule (PreserVision AREDS-2) 1 tab PO DAILY Eye Condition 05/08/23
Medications
-
Medications:
Generic Name Dose Route Start Last Admin
Trade Name Freq PRN Reason Stop Dose Admin
Acetaminophen 650 mg 05/13/23 21:30
Acetaminophen 650 Mg Rectal Suppository RECTAL 06/10/23 21:29
Q4HPRN PRN
mild pain/MAXWELL/temp>100.5
Aspirin 300 mg 05/15/23 09:00 05/15/23 10:19
Aspirin 300 Mg Rectal Suppository RECTAL 06/12/23 08:59 300 mg
DAILY DAT Administration
Enoxaparin Sodium 40 mg 05/08/23 18:00 05/14/23 17:51
Enoxaparin Sodium 40 Mg/0.4 Ml Syringe SC 06/05/23 17:59 40 mg
QPM DAT Administration
Erythromycin 0 applic 05/08/23 16:00 05/15/23 09:36
Erythromycin 0.5% (Ophthalmic Ointment) 1 Gram Tube OPHTH 05/18/23 15:59 1 applic
TID DAT Administration
Acyclovir Sodium 800 mg/ 266 mls @ 250 mls/hr 05/14/23 20:00 05/15/23 09:34
Sodium Chloride IV 05/24/23 19:59 266 mls
Q12H DAT Administration
Dextrose 1,000 mls @ 100 mls/hr 05/15/23 09:00 05/15/23 09:50
D5w IV 1,000 mls
.Q10H DAT Administration
Metoprolol Tartrate 2.5 mg 05/15/23 14:00
Metoprolol 5 Mg/5 Ml Vial IV 06/12/23 13:59
Q6H DAT
Sodium Chloride 0 flush 05/08/23 11:00
Sodium Chloride 0.9% (Flush) Syringe IV 06/05/23 10:59
PER PROTOCOL DAT
[2023-05-15] MEDS: D5W 1000 IV ×2 (09:50→20:50)
[2023-05-15] MEDS: LOPRESSOR 5 MG IV (09:51)
[2023-05-15] MEDS: ASPIRIN 300 MG RECTAL (10:19)
[2023-05-15 11:39] VITALS: BP 110/65
--- NOTE | 2023-05-15 12:24 | W.PN.HOSP.TC ---
Today's Communication/Plan
-
.
Assessment / Plan
Assessment / Plan
Physical Exam
General: No Apparent Distress
HEENT: Normocephalic and Other (Left eye with some crusting and purulence - improved slightly)
Respiratory: Clear
Cardiac: S1/S2 and Regular Rhythm
GI: Soft, Non Tender and Normal Bowel Sounds
Musculoskeletal: No Cyanosis, Edema, Left Lower Extremity and Edema, Right Lower Extremity. RLE erythema near ankle (chronic per patient's family)
Skin: Warm and Dry
Neuro: Alert. Awake. Confused/Altered
Psych: Calm

Assessment/Plan
# Toxic metabolic encephalopathy
-UA does not suggest UTI
-CXR (possible atelectasis vs. pneumonia at the lung bases), TSH - OK, B1 - normal, B12 - OK, folate - OK, ammonia - OK, coags - OK, magnesium - OK, phosphorus - OK, AM cortisol - OK, serum osmolality - slightly elevated at 304
-Continue Rocephin and PO Doxycycline given possible pneumonia on CXR
-CT Head - IMPRESSION (as per radiologist's report):
'1. ��Moderate-sized chronic subdural hygroma�overlying the lateral convexity of the right frontal and parietal lobes�causing mild mass effect�which is not definitively changed from 12/17/2020.
2. 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
3. � Severe white matter leukoaraiosis in the frontal and parietal lobes.
4. � Mild diffuse cerebral and cerebellar volume loss.
5. ��Severe intracranial calcific atherosclerotic disease.'
-UDS negative
-Patient is still having hallucinations and agitation
-Neurosurgery consulted, recommendations appreciated
-Psychiatry consulted, recommendations appreciated
-Neurology consulted, recommendations appreciated: patient likely has underlying dementia and a significant worsening due to exacerbation of same
-EEG as per neurology as of May 14, 2023
-Infectious Disease consulted, recommendations appreciated
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
-Acyclovir reduced to 800 mg IV every 12 hours from 800 mg IV every 8 hours due to NESTOR on May 14, 2023
-Patient cannot get MRI brain due to plates in his head
-Recheck CT of the head ordered on May 13, 2023 -- okay
-Patient's Gloria refused on May 12, 2023 for patient to get lumbar puncture after the reasons for doing a lumbar puncture were explained to her-
-Contacted infection control. No isolation recommended
-Appreciate neurology and infectious diseases doctor's input
Acute Hypoxic Respiratory Insufficiency
-Needed nasal cannula 2 liters on May 13, 2023
-CXR was with no acute process
-Ordered VBG on 05/14/23
-Consulted pulmonary, recommendations appreciated
-Pulmonary mentioned that patient's mild oxygen desaturation is likely either from subsegmental atelectasis or some aspiration pneumonitis
# Hypernatremia due to low oral intake
change to D5W and monitor blood work
#Acute Kidney Injury
-Noted on May 14, 2023
-Acyclovir reduced as above
-Gentle IV fluids started
-Avoid nephrotoxic
# Left eyelid blepharitis
-Spoke on May 08, 2023 with on-call bicycle technician Dr. Vivi Mills and shared (with Dr. Prince Mills) photo of patient's eye with patient's 's permission
-Based on history and exam it looks like suspected blepharitis
-Warm compresses
-Eyelid Scrubs
-Status post erythromycin ointment TID
Right Lower Extremity Wound
Chronic Right Lower Extremity Erythema
-Caused by trauma?
-Right ankle x-ray showed: osteopenia and vascular calcification/atherosclerosis
-Patient's reports that patient has had this redness for a long time--and it actually looks better than usual
-Will consider ID consult
-Wound care
Intermittent Diarrhea with Dark Black Stools - thought to be from iron medication and Hgb normal on admission. F/u outpatient.
Coronary artery disease status post stents - continue Aspirin, Isosorbide Mononitrate and Atenolol
Solitary kidney (since childhood) - monitor renal function; minimize/avoid nephrotoxic agents
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
History of signs and symptoms of cognitive impairment
History of speech difficulty (in 2020)
Anemia - Hgb normal on admission. Continue home ferrous sulfate. Continue home Vitamin B12.
Hypertension - SBP was previously elevated to 170s, now 140s - continue home nitrate, Bumex and beta benigno
Hyperlipidemia
COPD? - per pulm no COPD on [facility] records - maybe he sees another doctor somewhere else who diagnosed him with COPD? Stable. Continue home BiPAP.
Sleep apnea
BPH
Gout
Osteoarthritis
Bilateral hearing impairment
Cataracts
DVT PPx:�Lovenox
Diet: IDDSI 4 and IDDSI 2 Mildly Thick/[place] - I spoke with patient's Gloria on May 12, 2023 and patient's was adamant in patient continuing a solid diet despite the risks of aspiration pneumonia, as discussed with speech (who recommended
NPO at this time to be safe)
Code Status:�DNR (Hospitalist confirmed this with patient's at the time of admission)
Dr Segovia spoke with patient's Gloria and patient's son over the phone at [phone].
�Total time spent to see the patient, examine the patient on the floor, review data and lab results, discuss treatment plan with the patient, nursing staff around 55 minutes
Anticipated Discharge: > 48 hours
Subjective/Interval History
-
Date of Service: May 15, 2023
Confused over night
Nurse: was unable to take pills or food
Objective Data
-
Labs:
Laboratory Results
05/15/23
07:03
WBC 7.8
Hgb 10.6 L
Hct 34.3 L
Plt Count 230
Sodium 146 H
Potassium 3.7
Chloride 111 H
Carbon Dioxide 25
BUN 36 H
Creatinine 1.3
Glucose 85
Calcium 7.7 L
Vital Signs:
Vital Signs
Temp Pulse Resp BP Pulse Ox
98.7 F 84 18 110/65 95
05/15/23 11:39 05/15/23 11:39 05/15/23 11:39 05/15/23 11:39 05/15/23 11:39
I&O
05/14/23 05/15/23 05/16/23
06:59 06:59 06:59
Intake Total 1142 / 1142 1250 / 1250
Output Total 2400 / 2400 1200 / 1200
Balance -1258 / -1258 50 / 50
--- NOTE | 2023-05-15 12:32 | EEGC.RPT ---
Continuous EEG Report
Recording
Start Date of Data Reviewed: 05/15/23
Done with Video Recording: Yes
Report
��TECHNICAL REMARKS:��This is a technically satisfactory eighteen channel record employing 21 disc electrodes applied according to a measured international 10-20 electrode placement system.��There were no significant technical difficulties.��The
study was done on a [employer] System.
�
CLINICAL HISTORY: This is an 88 year old man with encephalopathy.� This study was requested to look for epileptiform abnormalities.
STUDY DURATION:� 22 min, 50 �secs
MEDICATIONS: no AED
REPORT: �At the onset of the EEG, the patient is in altered mental status. The background activity consists of 10-11 Hz, impersistent, posteriorly dominant, moderate amplitude, symmetric, and rhythmic activity. Continuous generalized, 2-3 Hz, 30-50
uV polymorphic delta activity was seen.� Stepwise intermittent photic stimulation did not induce additional abnormalities. Hyperventilation was not performed. Drowsiness is characterized by low amplitude mixed frequency activity, decreased eye
blinking, and muscle artifact. No epileptiform activity was seen.
�
IMPRESSION: �This is an abnormal EEG recorded in altered mental status due to a moderate-to severe generalized slowing. This finding indicates diffuse cerebral dysfunction, nonspecific in terms of etiology.�
[2023-05-15 13:54] LABS: Creatine Phosphokinase 57 U/L (55-170)
[2023-05-15 14:19] LABS: Erythrocyte Sed Rate 33 mm/hour (0-20)
[2023-05-15] MEDS: VITAMIN D3 (cholecalciferol) PO (15:10)
[2023-05-15] MEDS: VITAMIN B-12 PO (15:10)
[2023-05-15] MEDS: ZINC SULFATE PO (15:10)
[2023-05-15] MEDS: VITAMIN C PO (15:10)
[2023-05-15] MEDS: MAG-TAB SR PO (15:11)
[2023-05-15] MEDS: OCUVITE SOFTGEL PO (15:11)
[2023-05-15] MEDS: TENORMIN PO (15:11)
[2023-05-15] MEDS: KCL PO (15:11)
[2023-05-15] MEDS: ISORDIL PO (15:11)
[2023-05-15] MEDS: ASPIR LOW (ENTERIC COATED) PO (15:12)
[2023-05-15] MEDS: FEOSOL PO (15:12)
[2023-05-15] MEDS: BUMEX PO (15:12)
[2023-05-15 15:55] VITALS: BP 169/84
--- NOTE | 2023-05-15 16:03 | W.PN.ID1 ---
Date of Service
Date of Service: May 15, 2023
Today's Communication
Continue acyclovir for today.
Assessment / Plan
Change in mental status/encephalopathy.
- TME? Viral encephalopathy?
NESTOR
Leukocytosis - resolved
CAD
COPD
HTN
Dyslipidemia
NORA
BPH
Gout
Osteoarthritis
Recommendations:
Encephalopathy persists, although patient appears somewhat improved from prior exam.
refused LP and brain MRI due to hardware in head.
Difficult to exclude HSV/VZV as refused lumbar puncture.
On empiric acyclovir 800 mg IV every 8 hours (d#5). Dose reduced to 800mg IV q12 due to NESTOR.
Monitor renal function while on acyclovir.
Chief Complaint
-: Other (Hallucinations)
Vital Signs / Physical Exam
Vital Signs
Vital Signs
Temp Pulse Resp BP Pulse Ox
98.7 F 84 18 110/65 95
05/15/23 11:39 05/15/23 11:39 05/15/23 11:39 05/15/23 11:39 05/15/23 11:39
Physical Exam
Constitutional: Chronically Ill and Non-toxic
Eyes: No Conjunctival Hemorrhage and Sclera Anicteric
Cardiovascular: S1/S2; Negative S3/S4
Pulmonary: Non Labored; Negative Wheezes
Gastrointestinal: Soft and Non Tender
Neurological: Other (Arousable to voice. Answer simple questions.)
Objective Data
Lab Data
Lab Results
05/15/23 07:03
05/15/23 07:03
ESR Cancelled 05/15/23 13:26
PT 13.9 Sec (11.4-14.6) 05/08/23 13:06
INR 1.09 05/08/23 13:06
APTT 37.7 Sec (23.4-35.0) H 05/08/23 13:06
Estimated Creat Clear 37 ml/min 05/15/23 07:03
Lactic Acid 1.0 mmol/L (0.7-2.0) 05/08/23 03:06
Total Bilirubin 0.6 mg/dl (0.2-1.3) 05/08/23 03:06
AST 54 U/L (17-59) 05/08/23 03:06
ALT 44 U/L (0-50) 05/08/23 03:06
Alkaline Phosphatase 124 U/L (38-126) 05/08/23 03:06
C-Reactive Protein Cancelled 05/15/23 13:26
Most recent labs reviewed.
Micro Results:
05/08/23 13:06 Blood Culture - Final
Blood/Venous No Growth - Final Report
05/08/23 03:06 Blood Culture - Final
Blood/Venous No Growth - Final Report
05/09/23 10:10 MRSA Screen - Final
Nose No Methicillin Resistant Staphylococcus aureus isolated.
05/09/23 16:07 Influenza Types A & B (VOLODYMYR) - Final
Nasal Swab Negative for Influenza A & B, NAAT
Negative results must be combined with clinical observations
and patient history.
Nucleic Acid Amplification test (NAAT)performed on the
[employer] platform.
Imaging:
05/09/2023 CXR (2 view): No pulmonary edema seen. Suboptimal inspiration limits utility of exam. There may be mild parenchymal airspace disease in both lung bases. Not clear whether subsegmental atelectasis or bibasilar pneumonia.
[2023-05-15] MEDS: LOPRESSOR 2.5 MG IV ×2 (16:20→21:04)
--- NOTE | 2023-05-15 16:34 | CM ---
Chart reviewed and watch caser met with patient and spouse at bedside, patient is lethargic per [facility] physical therapy unable to treat patient today. Patient is currently requiring 2 liters of oxygen.
Plan; To follow with progress.
[2023-05-15] MEDS: LOVENOX 40 MG SC (18:27)
[2023-05-15 19:42] VITALS: BP 129/86
[2023-05-15 23:28] VITALS: BP 143/84
[2023-05-16] VITALS (8 sets, daily range): BP systolic 96–172; BP diastolic 46–97; PULSE 99; O2SAT 96; BMI 26.7
[2023-05-16] MEDS: LOPRESSOR 2.5 MG IV ×3 (03:00→20:01)
[2023-05-16] MEDS: D5W 1000 IV ×2 (05:23→17:53)
[2023-05-16 07:47] LABS: Hemoglobin 10.6 g/dL (13.0-18.0); Mean Corp Hgb Conc. 32.1 g/dL (33.0-37.0); Mean Corpuscular Hgb 28.8 pg (27.0-31.0); Mean Corpuscular Volume 89.7 fL (80.0-94.0); Mean Platelet Volume 9.9 fL (7.4-10.4); Platelet Count 240 10^3/uL (130-400); Red Blood Cell Count 3.68 10^6/uL (4.70-6.10); Red Cell Dist. Width 14.4 % (11.5-14.5)
[2023-05-16 08:06] LABS: Blood Urea Nitrogen 35 mg/dl (9-20); Calcium 8.3 mg/dl (8.4-10.2); Carbon Dioxide 30 mmol/L (22-30); Chloride 103 mmol/L (98-107); Estimated Creatinine Clearance 44 ml/min; Glucose 147 mg/dl (70-99); Potassium 3.7 mmol/L (3.5-5.1); Sodium 139 mmol/L (135-145); eGFR > 60.00
[2023-05-16] MEDS: ERYTHROMYCIN 0.5% OPHTHALMIC OINTMENT 1 APPLIC OPHTH ×3 (08:07→20:01)
[2023-05-16] MEDS: ASPIRIN 300 MG RECTAL (08:10)
[2023-05-16] MEDS: ZOVIRAX INJECTION 266 MG IV (08:11)
[2023-05-16] MEDS: SOLU-MEDROL PF 40 MG IV (09:24)
[2023-05-16] MEDS: FLUSH (NSS) 2 FLUSH IV (09:26)
--- NOTE | 2023-05-16 09:34 | W.PN.NEURO.1 ---
Documented by User: Natali Hernandez NP 05/16/23 09:52
Today's Communication / Plan
-
.
Neuro Assessment/Plan
Assessment
1.� � Multifactorial encephalopathy(vascular, metabolic(hypernatremia), inflammatory, neurodegenerative?), clinically improved
2.� � Chronic bilateral cerebellar infarcts
3.� � Chronic R hemispheric hygroma, radiographically stable since 2020
Plan
-MRI brain noncontrast ordered. Xray orbits ordered for MRI pre-screening. Unclear contraindication to MRI.
-Follow up ESR/CRP, CPK, paraneoplastic panel
-Lumbar puncture refused by patient's
-ASA 81 mg QD for secondary stroke prevention
-ID follow up, on empiric acyclovir
-Neurological checks per unit guidelines
-DVT prophylaxis.
Subjective/Objective
Subjective Data
Date of Service: May 16, 2023
No acute events overnight. Patient currently sleeping. Opens eyes to loud voice/touch but uncooperative with examination. RINKU review of systems. Per nursing, patient was interactive and verbal earlier this morning, no s/s of hallucinations.
Objective Data
Vital Signs
Temp Pulse Resp BP Pulse Ox
97.5 F 100 18 150/91 98
05/16/23 07:46 05/16/23 07:46 05/16/23 07:46 05/16/23 07:46 05/16/23 07:46
Lab Results
05/16/23 06:29
05/16/23 06:29
PT 13.9 Sec (11.4-14.6) 05/08/23 13:06
INR 1.09 05/08/23 13:06
APTT 37.7 Sec (23.4-35.0) H 05/08/23 13:06
Sodium 139 mmol/L (135-145) 05/16/23 06:29
Potassium 3.7 mmol/L (3.5-5.1) 05/16/23 06:29
BUN 35 mg/dl (9-20) H 05/16/23 06:29
Glucose 147 mg/dl (70-99) H 05/16/23 06:29
Calcium 8.3 mg/dl (8.4-10.2) L 05/16/23 06:29
Phosphorus Cancelled 05/08/23 10:05
LDL Cholesterol, Calc 82 mg/dl 05/12/23 05:19
Whole Bld Vitamin B1 149 nmol/L (70-180) 05/08/23 13:06
Vitamin B12 741 pg/ml (239-931) 05/08/23 13:06
Ur Buprenorphine Cancelled 05/08/23 10:06
Patient Allergies
gramicidin D Allergy (Verified 05/08/23 00:46)
SORES GET WORSE
latex Allergy (Verified 05/08/23 00:46)
Rash
neomycin Allergy (Verified 05/08/23 00:46)
SORES GET WORSE
NSAIDS (Non-Steroidal Anti-Inflamma Allergy (Verified 05/08/23 00:46)
JUST GENERALLY DON'T TAKE
oxycodone Allergy (Verified 05/08/23 00:46)
'WAY OUT IN SPACE'
polymyxin B Allergy (Verified 05/08/23 00:46)
SORES GET WORSE
shellfish derived Allergy (Verified 05/08/23 00:46)
gout
Sulfa (Sulfonamide Antibiotics) Allergy (Verified 05/08/23 00:46)
Rash 'GET SICK' - VOMITING
trimethoprim Allergy (Verified 05/08/23 00:46)
Unknown
LDL Level: >70, statin ordered (on hold due to dysphagia)
Review of Systems
-
Unable to obtain full review of systems at this time due to: Lethargy
Physical Exam
-
General: No Apparent Distress and Wearing Oxygen
Eyes: PERRLA
HEENT: Normocephalic and Atraumatic
Respiratory: No Dyspnea
GI: Non-distended
Skin: Other (scabs left knee)
Extremities: No Clubbing, No Cyanosis and No Edema
Psych: Unable to Assess
Extended Neurological Exam
Mood & Affect: Unable to Assess
Attention Span & Concentration: Lethargic and Closes Eyes after Stimulation
Memory: Unable to Assess
Tremor: Hand Tremor Absent and Head Tremor Absent
Involuntary Movement: None
Speech: Unable to Assess
Cranial Nerve II: Left Eye: Pupillary Reactivity Unremarkable, Pupillary Size Unremarkable and Unable to Assess Visual Gómez
Cranial Nerve II: Right Eye: Pupillary Reactivity Unremarkable, Pupillary Size Unremarkable and Unable to Assess Visual Gómez
Cranial Nerves III, IV, : Extraocular Movement: Unable to Assess
Cranial Nerve V: Facial Sensation: Unable to Assess
Cranial Nerve VII: Facial Symmetry: Normal Facial Symmetry
Cranial Nerve VIII: Hearing: Grossly Reduced
Cranial Nerves IX, X: Palate Movement: Unable to Assess
Cranial Nerve XI: Shoulder Shrug: Unable to Assess
Cranial Nerve XII: Tongue Protusion: Unable to Assess
Muscle Strength, Overall: Spontaneously Moves and Other (localizes BUE, withdraws BLE)
Muscle Bulk & Tone: Bulk Unremarkable and Tone Unremarkable
Pronator Drift: Unable to Assess
Deep Tendon Reflexes: Absent (b/l patellar) and Otherwise Trace
Cold Sensation: Unable to Assess
Vibration Sensation: Unable to Assess
Touch Sensation: Withdrawal to Pain
Coordination: Unable to Assess
Babinski Sign: Absent Bilaterally
Gait & Station: Unable to Assess
Data Reviewed
-
CT Head: Report Reviewed and Image Reviewed
MRI Head: Ordered and Pending
Labs: Report Reviewed
Lipid Profile: Report Reviewed
HgbA1C: Report Reviewed
Reviewed with: Physician and Patient
Medications
-
Active Medications
Generic Name Dose Route Start Last Admin
Trade Name Freq PRN Reason Stop Dose Admin
Acetaminophen 650 mg 05/13/23 21:30
Acetaminophen 650 Mg Rectal Suppository RECTAL 06/10/23 21:29
Q4HPRN PRN
mild pain/MAXWELL/temp>100.5
Aspirin 300 mg 05/15/23 09:00 05/16/23 08:10
Aspirin 300 Mg Rectal Suppository RECTAL 06/12/23 08:59 300 mg
DAILY DAT Administration
Enoxaparin Sodium 40 mg 05/08/23 18:00 05/15/23 18:27
Enoxaparin Sodium 40 Mg/0.4 Ml Syringe SC 06/05/23 17:59 40 mg
QPM DAT Administration
Erythromycin 0 applic 05/08/23 16:00 05/16/23 08:07
Erythromycin 0.5% (Ophthalmic Ointment) 1 Gram Tube OPHTH 05/18/23 15:59 1 applic
TID DAT Administration
Acyclovir Sodium 800 mg/ 266 mls @ 250 mls/hr 05/14/23 20:00 05/16/23 08:11
Sodium Chloride IV 05/24/23 19:59 266 mls
Q12H DAT Administration
Dextrose 1,000 mls @ 100 mls/hr 05/15/23 09:00 05/16/23 05:23
D5w IV 1,000 mls
.Q10H DAT Administration
Metoprolol Tartrate 2.5 mg 05/15/23 14:00 05/16/23 08:11
Metoprolol 5 Mg/5 Ml Vial IV 06/12/23 13:59 2.5 mg
Q6H DAT Administration
Sodium Chloride 0 flush 05/08/23 11:00 05/16/23 09:26
Sodium Chloride 0.9% (Flush) Syringe IV 06/05/23 10:59 2 flush
PER PROTOCOL DAT Administration
Home Medications
Medication Instructions Recorded
magnesium 250 mg tablet 100 mg PO DAILY Electrolyte 10/24/16
Repletion
zinc gluconate 50 mg tablet 50 mg PO DAILY Supplement 10/24/16
isosorbide mononitrate 10 mg tablet 5 mg PO DAILY Heart 01/17/17
Disease/Condition
ascorbic acid (vitamin C) 500 mg 1,000 mg PO DAILY Supplement 12/16/20
tablet (Vitamin C)
atenolol 25 mg tablet 12.5 mg PO BID Blood pressure 12/16/20
bumetanide 1 mg tablet 0.5 mg PO MOTH Electrolyte 12/16/20
Repletion
cholecalciferol (vitamin D3) 25 1,000 units PO DAILY Supplement 12/16/20
mcg (1,000 unit) tablet
cyanocobalamin (vitamin B-12) 1,000 mcg PO DAILY Supplement 12/16/20
1,000 mcg tablet
ferrous sulfate 325 mg (65 mg 325 mg PO DAILY Supplement 12/16/20
iron) tablet (FeroSul)
aspirin 81 mg tablet,delayed 81 mg PO DAILY Blood Clot 05/08/23
release Prevention/Tx
potassium 99 mg tablet 99 mg PO DAILY Electrolyte 05/08/23
Repletion
vit C 250 mg-vit E 90 mg-zinc 40 1 tab PO DAILY Eye Condition 05/08/23
mg-copper 1 [id number]
capsule (PreserVision AREDS-2)

Documented by User: Lashon Scott MD 05/16/23 17:57
Neuro Assessment/Plan
Assessment
1.� � Multifactorial encephalopathy(vascular, metabolic(hypernatremia), inflammatory, neurodegenerative?). Prognosis is guarded
2.� � Chronic bilateral cerebellar infarcts
3.� � Chronic R hemispheric hygroma, radiographically stable since 2020
Plan
-Palliative care consult
-Case was discussed with patient's son
-Please recall neurology service with any questions or concerns
Subjective/Objective
Subjective Data
Date of Service: May 16, 2023
No acute events overnight. Continues to be encephalopathic, EEG was notable for excess of activity along with generalized delta slowing.
[2023-05-16] MEDS: LOPRESSOR IV (13:41)
--- NOTE | 2023-05-16 14:27 | CM ---
Chart reviewed will await updated notes from physician for plan for patient. Med sitter in place.
Plan; To follow with patient progress.
--- NOTE | 2023-05-16 15:46 | W.PN.ID1 ---
Date of Service
Date of Service: May 16, 2023
Today's Communication
D/C acyclovir with close observation.
Assessment / Plan
Change in mental status/encephalopathy.
- TME? Viral encephalopathy?
NESTOR
Leukocytosis - resolved
CAD
COPD
HTN
Dyslipidemia
NORA
BPH
Gout
Osteoarthritis
Recommendations:
Encephalopathy appears improved.
previously refused LP and brain MRI due to hardware in head.
On empiric acyclovir (d#6). Dose reduced to 800mg IV q12 due to NESTOR.
Given improvement, would like to D/C further acyclovir with very close observation.
- if there is clinical deterioration, would recommend further workup via lumbar puncture.
Chief Complaint
-: Other (Hallucinations)
Subjective / Review of Systems
Review of Systems: No Fever and No Chills
Vital Signs / Physical Exam
Vital Signs
Vital Signs
Temp Pulse Resp BP Pulse Ox
97.9 F 60 18 160/86 99
05/16/23 12:01 05/16/23 13:41 05/16/23 12:01 05/16/23 12:01 05/16/23 12:01
Physical Exam
Constitutional: No Acute Distress, Chronically Ill and Non-toxic
Eyes: No Conjunctival Hemorrhage and Sclera Anicteric
Cardiovascular: S1/S2; Negative S3/S4
Pulmonary: Non Labored
Gastrointestinal: Soft and Non Distended
Neurological: Negative Meningeal Signs
Psychological: Calm
Objective Data
Lab Data
Lab Results
05/16/23 06:29
05/16/23 06:29
ESR Cancelled 05/15/23 13:26
PT 13.9 Sec (11.4-14.6) 05/08/23 13:06
INR 1.09 05/08/23 13:06
APTT 37.7 Sec (23.4-35.0) H 05/08/23 13:06
Estimated Creat Clear 44 ml/min 05/16/23 06:29
Lactic Acid 1.0 mmol/L (0.7-2.0) 05/08/23 03:06
Total Bilirubin 0.6 mg/dl (0.2-1.3) 05/08/23 03:06
AST 54 U/L (17-59) 05/08/23 03:06
ALT 44 U/L (0-50) 05/08/23 03:06
Alkaline Phosphatase 124 U/L (38-126) 05/08/23 03:06
C-Reactive Protein Cancelled 05/15/23 13:26
Most recent labs reviewed.
Micro Results:
05/08/23 13:06 Blood Culture - Final
Blood/Venous No Growth - Final Report
05/08/23 03:06 Blood Culture - Final
Blood/Venous No Growth - Final Report
05/09/23 10:10 MRSA Screen - Final
Nose No Methicillin Resistant Staphylococcus aureus isolated.
05/09/23 16:07 Influenza Types A & B (VOLODYMYR) - Final
Nasal Swab Negative for Influenza A & B, NAAT
Negative results must be combined with clinical observations
and patient history.
Nucleic Acid Amplification test (NAAT)performed on the
[employer] platform.
Imaging:
05/09/2023 CXR (2 view): No pulmonary edema seen. Suboptimal inspiration limits utility of exam. There may be mild parenchymal airspace disease in both lung bases. Not clear whether subsegmental atelectasis or bibasilar pneumonia.
Care Review
Plan reviewed with: Physician (Hospitalist)
[2023-05-16] MEDS: LOVENOX 40 MG SC (17:51)
--- NOTE | 2023-05-16 17:53 | EEGC.RPT ---
Continuous EEG Report
Recording
Start Date of Data Reviewed: 05/16/23
End Date of Data Reviewed: 05/16/23
Done with Video Recording: Yes
Report
�TECHNICAL REMARKS:��This is a technically satisfactory eighteen channel record employing 21 disc electrodes applied according to a measured international 10-20 electrode placement system.��There were no significant technical difficulties.��The
study was done on a Clerk System.
�
CLINICAL HISTORY: This is an 88 year old man with encephalopathy.� This study was requested to look for epileptiform abnormalities.
STUDY DURATION:� 26 min, 49 �secs
MEDICATIONS: no AED
REPORT: �At the onset of the EEG, the patient is in altered mental status. The background activity consists of 10-11 Hz, impersistent, posteriorly dominant, moderate amplitude, symmetric, and rhythmic activity. Continuous generalized, 2-3 Hz, 30-50
uV� polymorphic delta activity was seen.� Stepwise intermittent photic stimulation did not induce additional abnormalities. Excessive alpha activity was present throughout the study, predominantly in the central region. Hyperventilation was not
performed. Drowsiness is characterized by low amplitude mixed frequency activity, decreased eye blinking, and muscle artifact. No epileptiform activity was seen.
�
IMPRESSION: �This is an abnormal EEG recorded in altered mental status due to a moderate-to severe generalized slowing with alpha coma EEG pattern. This finding indicates diffuse cerebral dysfunction, nonspecific in terms of etiology.�
[2023-05-17 03:00] VITALS: BP 158/88
[2023-05-17] MEDS: LOPRESSOR IV (03:35)
[2023-05-17] MEDS: D5W 1000 IV (03:46)
[2023-05-17 06:37] VITALS: BMI 27.5
[2023-05-17 07:49] VITALS: BP 163/101
[2023-05-17 08:38] LABS: Hematocrit 35.5 % (39.0-52.0); Hemoglobin 11.2 g/dL (13.0-18.0); Mean Corp Hgb Conc. 31.5 g/dL (33.0-37.0); Mean Corpuscular Hgb 28.4 pg (27.0-31.0); Mean Corpuscular Volume 89.9 fL (80.0-94.0); Mean Platelet Volume 10.2 fL (7.4-10.4); Platelet Count 295 10^3/uL (130-400); Red Blood Cell Count 3.95 10^6/uL (4.70-6.10); Red Cell Dist. Width 14.1 % (11.5-14.5); White Blood Cell Count 9.5 10^3/uL (4.8-10.8)
[2023-05-17 09:01] LABS: Blood Urea Nitrogen 30 mg/dl (9-20); Calcium 8.5 mg/dl (8.4-10.2); Carbon Dioxide 30 mmol/L (22-30); Chloride 103 mmol/L (98-107); Estimated Creatinine Clearance 41 ml/min; Glucose 134 mg/dl (70-99); Potassium 4.3 mmol/L (3.5-5.1); Sodium 137 mmol/L (135-145); eGFR 58.53
[2023-05-17] MEDS: LOPRESSOR 2.5 MG IV ×3 (09:12→20:12)
[2023-05-17] MEDS: SOLU-MEDROL PF 20 MG IV (09:14)
[2023-05-17] MEDS: ASPIRIN 300 MG RECTAL (09:15)
[2023-05-17] MEDS: ERYTHROMYCIN 0.5% OPHTHALMIC OINTMENT 1 APPLIC OPHTH ×3 (09:15→20:14)
--- NOTE | 2023-05-17 11:07 | W.PN.HOSP.TC ---
Today's Communication/Plan
-
dc planning
Assessment / Plan
Assessment / Plan
Physical Exam
General: No Apparent Distress
HEENT: Normocephalic and Other (Left eye with some crusting and purulence - improved slightly)
Respiratory: Clear
Cardiac: S1/S2 and Regular Rhythm
GI: Soft, Non Tender and Normal Bowel Sounds
Musculoskeletal: No Cyanosis, Edema, Left Lower Extremity and Edema, Right Lower Extremity. RLE erythema near ankle (chronic per patient's family)
Skin: Warm and Dry
Neuro: Alert. Awake. Confused/Altered
Psych: Calm

Assessment/Plan
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
less tenderness in right hand today
will give another iV steroid
# Toxic metabolic encephalopathy
He seems more alert and now on comfort feeding per 's request
Family is aware of risk of aspiration and they wanted to c/w comfort feedings and modified diet
Infectious process is ruled out
-UA does not suggest UTI
-CXR (possible atelectasis vs. pneumonia at the lung bases), TSH - OK, B1 - normal, B12 - OK, folate - OK, ammonia - OK, coags - OK, magnesium - OK, phosphorus - OK, AM cortisol - OK, serum osmolality - slightly elevated at 304
-Continue Rocephin and PO Doxycycline given possible pneumonia on CXR
-CT Head - IMPRESSION (as per radiologist's report):
'1. ��Moderate-sized chronic subdural hygroma�overlying the lateral convexity of the right frontal and parietal lobes�causing mild mass effect�which is not definitively changed from 12/17/2020.
2. 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
3. � Severe white matter leukoaraiosis in the frontal and parietal lobes.
4. � Mild diffuse cerebral and cerebellar volume loss.
5. ��Severe intracranial calcific atherosclerotic disease.'
-UDS negative
-Neurosurgery consulted, recommendations appreciated
-Psychiatry consulted, recommendations appreciated
-Neurology consulted, recommendations appreciated: patient likely has underlying dementia and a significant worsening due to exacerbation of same
-EEG as per neurology as of May 14, 2023, no seizure activity.
-Infectious Disease consulted, recommendations appreciated
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 A trial of acyclovir did not improve mentation as much. -Recheck CT of the head ordered on May 13, 2023 -- okay
-Patient cannot get MRI brain due to plates in his head
-Patient's Gloria refused on May 12, 2023 for patient to get lumbar puncture after the reasons for doing a lumbar puncture were explained to her-
-Contacted infection control. No isolation recommended
-Appreciate neurology and infectious diseases doctors' input
#Acute Hypoxic Respiratory Insufficiency
-Needed nasal cannula 2 liters on May 13, 2023
-CXR was with no acute process
-Ordered VBG on 05/14/23
-Consulted pulmonary, recommendations appreciated
-Pulmonary mentioned that patient's mild oxygen desaturation is likely either from subsegmental atelectasis or some aspiration pneumonitis
# Hypernatremia due to low oral intake
Resolved, stop IVF
#Acute Kidney Injury
-Noted on May 14, 2023
-Acyclovir reduced as above
-s/p IVF-Avoid nephrotoxic
# Left eyelid blepharitis
-Spoke on May 08, 2023 with on-call fire official Dr. Vivi Mills and shared (with Dr. Prince Mills) photo of patient's eye with patient's 's permission
-Based on history and exam it looks like suspected blepharitis
-Warm compresses
-Eyelid Scrubs
-Status post erythromycin ointment TID
Right Lower Extremity Wound
Chronic Right Lower Extremity Erythema
-Caused by trauma?
-Right ankle x-ray showed: osteopenia and vascular calcification/atherosclerosis
-Patient's reports that patient has had this redness for a long time--and it actually looks better than usual
-Wound care
Intermittent Diarrhea with Dark Black Stools - thought to be from iron medication and Hgb normal on admission. F/u outpatient.
Coronary artery disease status post stents - continue Aspirin, Isosorbide Mononitrate and Atenolol
Solitary kidney (since childhood) - monitor renal function; minimize/avoid nephrotoxic agents
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
History of signs and symptoms of cognitive impairment
History of speech difficulty (in 2020)
Anemia - Hgb normal on admission. Continue home ferrous sulfate. Continue home Vitamin B12.
Hypertension - SBP was previously elevated to 170s, now 140s - continue home nitrate, Bumex and beta benigno
Hyperlipidemia
COPD? - per pulm no COPD on [facility] records - maybe he sees another doctor somewhere else who diagnosed him with COPD? Stable. Continue home BiPAP.
Sleep apnea
BPH
Gout
Osteoarthritis
Bilateral hearing impairment
Cataracts
DVT PPx:�Lovenox
Diet: IDDSI 4 and IDDSI 2 Mildly Thick/[place] -
�Total time spent to see the patient, examine the patient on the floor, review data and lab results, discuss treatment plan with the patient, nursing staff around 55 minutes
Anticipated Discharge: Within 24 hours
Subjective/Interval History
-
Date of Service: May 17, 2023
he seems more awake today
no fevers
Objective Data
-
Labs:
Laboratory Results
05/17/23
06:49
WBC 9.5
Hgb 11.2 L
Hct 35.5 L
Plt Count 295 D
Sodium 137
Potassium 4.3
Chloride 103
Carbon Dioxide 30
BUN 30 H
Creatinine 1.2
Glucose 134 H
Calcium 8.5
Vital Signs:
Vital Signs
Temp Pulse Resp BP Pulse Ox
97.9 F 102 18 163/101 97
05/17/23 07:49 05/17/23 07:49 05/17/23 07:49 05/17/23 07:49 05/17/23 07:49
I&O
05/16/23 05/17/23 05/18/23
06:59 06:59 06:59
Intake Total 2845 / 2845 3786 / 3786
Balance 2845 / 2845 3786 / 3786
--- NOTE | 2023-05-17 11:08 | W.PN.ID1 ---
Date of Service
Date of Service: May 17, 2023
Today's Communication
Observe off antibiotics.
Assessment / Plan
Encephalopathy of unclear etiology
- Suspected TME
NESTOR
- improved
Leukocytosis - resolved
CAD
COPD
HTN
Dyslipidemia
NORA
BPH
Gout
Osteoarthritis
Recommendations:
Encephalopathy appears improved.
has refused LP, along with brain MRI due to hardware in head.
Observe off acyclovir.
- if there is clinical deterioration, would recommend further workup via lumbar puncture.
����������������������������������������������������������
Chief Complaint
-: Other (Hallucinations)
Subjective / Review of Systems
Patient seen and examined. at the bedside. Patient much more conversant today.
Review of Systems: No Fever and No Chills
Vital Signs / Physical Exam
Vital Signs
Vital Signs
Temp Pulse Resp BP Pulse Ox
97.9 F 102 18 163/101 97
05/17/23 07:49 05/17/23 07:49 05/17/23 07:49 05/17/23 07:49 05/17/23 07:49
Physical Exam
Constitutional: No Acute Distress, Comfortable, Chronically Ill and Non-toxic
Eyes: Sclera Anicteric
Pulmonary: Non Labored
Neurological: Negative Meningeal Signs (No nuchal rigidity)
Psychological: Calm
Objective Data
Lab Data
Lab Results
05/17/23 06:49
05/17/23 06:49
ESR Cancelled 05/15/23 13:26
PT 13.9 Sec (11.4-14.6) 05/08/23 13:06
INR 1.09 05/08/23 13:06
APTT 37.7 Sec (23.4-35.0) H 05/08/23 13:06
Estimated Creat Clear 41 ml/min 05/17/23 06:49
Lactic Acid 1.0 mmol/L (0.7-2.0) 05/08/23 03:06
Total Bilirubin 0.6 mg/dl (0.2-1.3) 05/08/23 03:06
AST 54 U/L (17-59) 05/08/23 03:06
ALT 44 U/L (0-50) 05/08/23 03:06
Alkaline Phosphatase 124 U/L (38-126) 05/08/23 03:06
C-Reactive Protein Cancelled 05/15/23 13:26
Most recent labs reviewed.
Micro Results:
05/08/23 13:06 Blood Culture - Final
Blood/Venous No Growth - Final Report
05/08/23 03:06 Blood Culture - Final
Blood/Venous No Growth - Final Report
05/09/23 10:10 MRSA Screen - Final
Nose No Methicillin Resistant Staphylococcus aureus isolated.
05/09/23 16:07 Influenza Types A & B (VOLODYMYR) - Final
Nasal Swab Negative for Influenza A & B, NAAT
Negative results must be combined with clinical observations
and patient history.
Nucleic Acid Amplification test (NAAT)performed on the
[employer] platform.
Imaging:
05/13/2023 CT head without contrast: Moderate ventricular sulcal prominence consistent with atrophy. Moderate decreased attenuation about the lateral ventricles consistent with periventricular small vessel ischemic disease. A small focus of
low-attenuation in the right inferior cerebellum consistent with an old infarct. No midline shift or mass effect. Overall, no acute intracranial pathology noted.
05/09/2023 CXR (2 view): No pulmonary edema seen. Suboptimal inspiration limits utility of exam. There may be mild parenchymal airspace disease in both lung bases. Not clear whether subsegmental atelectasis or bibasilar pneumonia.
[2023-05-17 11:43] VITALS: BP 150/80
[2023-05-17 15:48] VITALS: BMI 27.5
[2023-05-17 16:07] VITALS: BP 142/70
--- NOTE | 2023-05-17 16:31 | CM ---
Plan is for skilled placement will initiate referrals to [facility]
Plan; Skilled placement.
[2023-05-17] MEDS: LOVENOX 40 MG SC (17:39)
[2023-05-17 19:46] VITALS: BP 152/80
[2023-05-17 23:15] VITALS: BP 165/94
[2023-05-18] MEDS: LOPRESSOR IV (02:29)
[2023-05-18 03:25] VITALS: BP 154/85
--- NOTE | 2023-05-18 03:31 | PTCARENOTE ---
Pt keeps trying to get out of bed. Pt confused and restless. Medsitter put in pts room. Will continue with current plan.
[2023-05-18 04:55] VITALS: BMI 26.5
[2023-05-18 07:36] VITALS: BP 149/65
[2023-05-18] MEDS: LOPRESSOR 2.5 MG IV ×3 (07:56→20:24)
[2023-05-18] MEDS: SOLU-MEDROL PF 20 MG IV (07:59)
[2023-05-18] MEDS: ERYTHROMYCIN 0.5% OPHTHALMIC OINTMENT 1 APPLIC OPHTH (08:00)
[2023-05-18] MEDS: ASPIRIN 300 MG RECTAL (08:00)
[2023-05-18 11:32] VITALS: BP 123/59
[2023-05-18 15:29] VITALS: BP 147/84
[2023-05-18 15:57] LABS: Rheumatoid Agglutinin Less Than 10 IU (<10 IU)
--- NOTE | 2023-05-18 16:36 | CM ---
Patient has been denied at [facility] for skilled placement per [facility] admissions patient needs to be off med sitter for 24-48 hours before they will consider patient. Referral sent to [facility].
Plan; Skilled placement when off med sitter.
[2023-05-18] MEDS: LOVENOX 40 MG SC (16:37)
[2023-05-18 19:41] VITALS: BP 130/60
[2023-05-18 23:33] VITALS: BP 164/77
[2023-05-19] VITALS (7 sets, daily range): BP systolic 128–175; BP diastolic 59–98; PULSE 72–76; O2SAT 98; BMI 26.4
[2023-05-19] MEDS: LOPRESSOR 2.5 MG IV ×3 (02:22→14:45)
[2023-05-19] MEDS: ASPIRIN 300 MG RECTAL (09:06)
[2023-05-19] MEDS: SOLU-MEDROL PF 20 MG IV (09:10)
--- NOTE | 2023-05-19 12:09 | W.PN.HOSP.TC ---
Today's Communication/Plan
-
dc
Assessment / Plan
Assessment / Plan
Physical Exam
General: No Apparent Distress
HEENT: Normocephalic and Other (Left eye with some crusting and purulence - improved slightly)
Respiratory: Clear
Cardiac: S1/S2 and Regular Rhythm
GI: Soft, Non Tender and Normal Bowel Sounds
Musculoskeletal: No Cyanosis, Edema, Left Lower Extremity and Edema, Right Lower Extremity. RLE erythema near ankle (chronic per patient's family)
Skin: Warm and Dry
Neuro: Alert. Awake. Confused/Altered
Psych: Calm

Assessment/Plan
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
less tenderness in right hand today
will give another iV steroid
# Toxic metabolic encephalopathy
He seems more alert and now on comfort feeding per 's request
Family is aware of risk of aspiration and they wanted to c/w comfort feedings and modified diet
Infectious process is ruled out
-UA does not suggest UTI
-CXR (possible atelectasis vs. pneumonia at the lung bases), TSH - OK, B1 - normal, B12 - OK, folate - OK, ammonia - OK, coags - OK, magnesium - OK, phosphorus - OK, AM cortisol - OK, serum osmolality - slightly elevated at 304
-Continue Rocephin and PO Doxycycline given possible pneumonia on CXR
-CT Head - IMPRESSION (as per radiologist's report):
'1. ��Moderate-sized chronic subdural hygroma�overlying the lateral convexity of the right frontal and parietal lobes�causing mild mass effect�which is not definitively changed from 12/17/2020.
2. 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
3. � Severe white matter leukoaraiosis in the frontal and parietal lobes.
4. � Mild diffuse cerebral and cerebellar volume loss.
5. ��Severe intracranial calcific atherosclerotic disease.'
-UDS negative
-Neurosurgery consulted, recommendations appreciated
-Psychiatry consulted, recommendations appreciated
-Neurology consulted, recommendations appreciated: patient likely has underlying dementia and a significant worsening due to exacerbation of same
-EEG as per neurology as of May 14, 2023, no seizure activity.
-Infectious Disease consulted, recommendations appreciated
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 A trial of acyclovir did not improve mentation as much. -Recheck CT of the head ordered on May 13, 2023 -- okay
-Patient cannot get MRI brain due to plates in his head
-Patient's Gloria refused on May 12, 2023 for patient to get lumbar puncture after the reasons for doing a lumbar puncture were explained to her-
-Contacted infection control. No isolation recommended
-Appreciate neurology and infectious diseases doctors' input
#Acute Hypoxic Respiratory Insufficiency
-Needed nasal cannula 2 liters on May 13, 2023
-CXR was with no acute process
-Ordered VBG on 05/14/23
-Consulted pulmonary, recommendations appreciated
-Pulmonary mentioned that patient's mild oxygen desaturation is likely either from subsegmental atelectasis or some aspiration pneumonitis
# Hypernatremia due to low oral intake
Resolved, stopped IVF
#Acute Kidney Injury
-Noted on May 14, 2023
-Acyclovir reduced as above
-s/p IVF-Avoid nephrotoxic
# Left eyelid blepharitis
-Spoke on May 08, 2023 with on-call educational program director Dr. Vivi Mills and shared (with Dr. Prince Mills) photo of patient's eye with patient's 's permission
-Based on history and exam it looks like suspected blepharitis
-Warm compresses
-Eyelid Scrubs
-Status post erythromycin ointment TID
Right Lower Extremity Wound
Chronic Right Lower Extremity Erythema
-Caused by trauma?
-Right ankle x-ray showed: osteopenia and vascular calcification/atherosclerosis
-Patient's reports that patient has had this redness for a long time--and it actually looks better than usual
-Wound care
Intermittent Diarrhea with Dark Black Stools - thought to be from iron medication and Hgb normal on admission. F/u outpatient.
Coronary artery disease status post stents - continue Aspirin, Isosorbide Mononitrate and Atenolol
Solitary kidney (since childhood) - monitor renal function; minimize/avoid nephrotoxic agents
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
History of signs and symptoms of cognitive impairment
History of speech difficulty (in 2020)
Anemia - Hgb normal on admission. Continue home ferrous sulfate. Continue home Vitamin B12.
Hypertension - SBP was previously elevated to 170s, now 140s - continue home nitrate, Bumex and beta benigno
Hyperlipidemia
COPD? - per pulezequiel no COPD on [facility] records - maybe he sees another doctor somewhere else who diagnosed him with COPD? Stable. Continue home BiPAP.
Sleep apnea
BPH
Gout
Osteoarthritis
Bilateral hearing impairment
Cataracts
DVT PPx:�Lovenox
Diet: IDDSI 4 and IDDSI 2 Mildly Thick/[place] -
�Total discharge time spent to see the patient, examine the patient on the floor, review data and lab results, discuss discharge plan with the patient, nursing staff around 65 minutes
Anticipated Discharge: Today
Subjective/Interval History
-
Date of Service: May 19, 2023
no events
Objective Data
-
Vital Signs:
Vital Signs
Temp Pulse Resp BP Pulse Ox
97.6 F 82 18 144/86 98
05/19/23 11:20 05/19/23 11:20 05/19/23 11:20 05/19/23 11:20 05/19/23 11:20
I&O
05/18/23 05/19/23 05/20/23
06:59 06:59 06:59
Intake Total 600 / 600 790 / 790 120 / 120
Balance 600 / 600 790 / 790 120 / 120
--- NOTE | 2023-05-19 14:18 | CM ---
Patient has been accepted at [facility] and bed is available today, patient has a 5pm mixing picker tender by ambulance.
Plan: Skilled placement at [facility]
Report [phone]
--- NOTE | 2023-05-19 14:40 | W.PN.ID1 ---
Date of Service
Date of Service: May 19, 2023
Today's Communication
Sign off
Assessment / Plan
Encephalopathy of unclear etiology
- Suspected TME
NESTOR
- improved
Leukocytosis - resolved
CAD
COPD
HTN
Dyslipidemia
NORA
BPH
Gout
Osteoarthritis
Recommendations:
Encephalopathy appears improved.
has refused LP, along with brain MRI due to hardware in head.
Observe off acyclovir.
- if there is clinical deterioration, would recommend further workup via lumbar puncture.
Little more to offer from an Infectious Disease standpoint.
Will see again at your request.
����������������������������������������������������������
Chief Complaint
-: Other (Hallucinations)
Subjective / Review of Systems
Review of Systems: No Fever and No Chills
Vital Signs / Physical Exam
Vital Signs
Vital Signs
Temp Pulse Resp BP Pulse Ox
97.6 F 82 18 144/86 98
05/19/23 11:20 05/19/23 11:20 05/19/23 11:20 05/19/23 11:20 05/19/23 11:20
Physical Exam
Constitutional: Comfortable, Chronically Ill and Non-toxic
Cardiovascular: S1/S2; Negative S3/S4
Pulmonary: Non Labored
Gastrointestinal: Soft
Neurological: Negative Meningeal Signs
Objective Data
Lab Data
Lab Results
05/17/23 06:49
05/17/23 06:49
ESR Cancelled 05/15/23 13:26
PT 13.9 Sec (11.4-14.6) 05/08/23 13:06
INR 1.09 05/08/23 13:06
APTT 37.7 Sec (23.4-35.0) H 05/08/23 13:06
Estimated Creat Clear 41 ml/min 05/17/23 06:49
Lactic Acid 1.0 mmol/L (0.7-2.0) 05/08/23 03:06
Total Bilirubin 0.6 mg/dl (0.2-1.3) 05/08/23 03:06
AST 54 U/L (17-59) 05/08/23 03:06
ALT 44 U/L (0-50) 05/08/23 03:06
Alkaline Phosphatase 124 U/L (38-126) 05/08/23 03:06
C-Reactive Protein Cancelled 05/15/23 13:26
Most recent labs reviewed.
Micro Results:
05/08/23 13:06 Blood Culture - Final
Blood/Venous No Growth - Final Report
05/08/23 03:06 Blood Culture - Final
Blood/Venous No Growth - Final Report
05/09/23 10:10 MRSA Screen - Final
Nose No Methicillin Resistant Staphylococcus aureus isolated.
05/09/23 16:07 Influenza Types A & B (VOLODYMYR) - Final
Nasal Swab Negative for Influenza A & B, NAAT
Negative results must be combined with clinical observations
and patient history.
Nucleic Acid Amplification test (NAAT)performed on the
[employer] platform.
Imaging:
05/13/2023 CT head without contrast: Moderate ventricular sulcal prominence consistent with atrophy. Moderate decreased attenuation about the lateral ventricles consistent with periventricular small vessel ischemic disease. A small focus of
low-attenuation in the right inferior cerebellum consistent with an old infarct. No midline shift or mass effect. Overall, no acute intracranial pathology noted.
05/09/2023 CXR (2 view): No pulmonary edema seen. Suboptimal inspiration limits utility of exam. There may be mild parenchymal airspace disease in both lung bases. Not clear whether subsegmental atelectasis or bibasilar pneumonia.
--- NOTE | 2023-05-19 15:33 | W.DCSUMMARY ---
Discharge Summary
Discharge Data
Date of Admission: 05/10/23
Date of Discharge: 05/19/23
-
Pending Results: No
Hospital Course
88 years old male came from home with . He presented with change in mental status with significant confusion that was reported by his . Patient was diagnosed with acute toxic metabolic encephalopathy. Urine test was not suggestive of
urinary tract infection. Chest radiography did not show pneumonia. Patient did not have fevers. Scan of the head revealed moderate size chronic subdural hygroma, severe white matter leukoaraiosis in the frontal and parietal lobes, diffuse
cerebral and cerebellar volume loss,severe intracranial calcific atherosclerotic disease with chronic infarct in the right cerebellar hemisphere. Influenza screen was negative. COVID screen was negative. Urine culture did not show any growth.
Blood work showed mild leukocytosis next day after admission. He was evaluated by infectious diseases [facility] pp consultant and neurologist. No obvious infectious source as a cause for confusion was found. Patient had scan did not show new finding.
Patient had history of ear implants that were incompatible to magnetic resonance imaging study of the brain. Electroencephalogram was consistent with moderate to severe generalized slowing with alpha coma pattern indicating diffuse cerebral
dysfunction, nonspecific in terms of etiology. Infectious diseases doctor recommended lumbar puncture to rule out ALUMINUM POOL INSTALLER infection because of confusion with leukocytosis. Patient's declined. Patient was given empiric intravenous Acyclovir with
no improvement. Infectious disease doctor recommended to monitor the patient off antibiotics. Patient was noted to have acute gouty arthritis flare-up in his upper extremities. He was given intravenous steroid with some improvement. Speech
therapist evaluated the patient and after discussing with patient's , decision to continue with modified diet. Patient's family was made aware of risk of aspiration and they agreed to continue with oral diet. Patient was seen by pulmonary
doctor. He was diagnosed with acute mild respiratory insufficiency with subsegmental atelectasis. Chest radiography did not show acute abnormality. Low lung volumes on imaging studies. Pulmonary doctor recommended to continue oxygen
supplementation as needed. Patient remained hemodynamically stable. Goal of care discussed with the and she expressed her wishes to seek fpc facility placement at the present time and to maintain DO NOT RESUSCITATE/DO NOT INTUBATE
status. Patient was discharged in a stable condition.
Discharge Plan
-
Patient Disposition: Group Home/SNF
Discharge Diagnosis/Procedures: Failure to thrive
Toxic metabolic encephalopathy
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
Acute Hypoxic Respiratory Insufficiency. 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
Dysphagia, on modified diet
Underlying cognitive impairment likely Alzheimer's dementia
Chronic right cerebellar ischemic stroke
Moderate-sized chronic subdural hygroma, stable.
Osteoarthritis
Bilateral hearing impairment
Cataract
Condition: Fair
Additional Diets: pureed diet
Referrals:
Kumar Estrada MD [Family Provider] -
Prescriptions:
New
acetaminophen 650 mg Suppository
650 mg MN Q4HPRN PRN (Reason: mild pain/MAXWELL/temp>100.5) Qty: 10 0RF
aspirin 81 mg tablet,chewable
81 mg PO DAILY Qty: 30 0RF
prednisone 20 mg tablet
20 mg PO DAILY Qty: 20 0RF
Rx Instructions:
20 mg QD x 7 days then 10 mg QD X 7days then 5 mg QD X 7 days
Continued
atenolol 25 MG tablet
12.5 mg PO BID
Discontinued
zinc gluconate 50 MG tablet
50 mg PO DAILY
magnesium 250 MG tablet
100 mg PO DAILY
isosorbide mononitrate 10 MG tablet
5 mg PO DAILY
cyanocobalamin (vitamin B-12) 1,000 MCG tablet
1,000 mcg PO DAILY
ascorbic acid (vitamin C) [Vitamin C] 500 MG tablet
1,000 mg PO DAILY
ferrous sulfate [FeroSul] 325 MG tablet
325 mg PO DAILY
bumetanide 1 MG tablet
0.5 mg PO MOTH
cholecalciferol (vitamin D3) 1,000 UNITS tablet
1,000 units PO DAILY
aspirin 81 mg Tablet,Delayed Release (Dr/Ec)
81 mg PO DAILY
potassium 99 mg Tablet
99 mg PO DAILY
PreserVision AREDS-2 250-90-40-1 mg Capsule
1 tab PO DAILY
Discharge Orders:
Discharge Patient (As Directed); Ordered 05/19/23
Ordered By: Jose R Garza
Discharge Date and Time
Discharge Date/Time: 05/19/23 17:23
[2023-05-19 21:28] LABS: Purkinje Cell/Neuronal Nuc IgG None Detected (None Detected)
== END 2023-05-19 17:23 | DRG 91 ==
LOC: 4 WEST ACU 09:07
PROVIDERS: Psychiatry & Neurology Neurology; ADMITTING PHYSICIAN Hospitalist; ATTENDING PHYSICIAN Internal Medicine; CONSULT PHYSICIAN Internal Medicine Infectious Disease; CONSULT PHYSICIAN Psychiatry & Neurology Neurology; CONSULT PHYSICIAN Psychiatry & Neurology Psychiatry; EMERGENCY PHYSICIAN Student in an Organized Health Care Education/Training Program; FAMILY PHYSICIAN Family Medicine; OTHER PHYSICIAN Internal Medicine Critical Care Medicine; OTHER PHYSICIAN Neurological Surgery
PROC: 5A09357 Assistance with Respiratory Ventilation, Less than 24 Consecutive Hours, Continuous Positive Airway Pressure (ICD-10-PCS; 2023-05-09)
DX: G96.08 Other cranial cerebrospinal fluid leak (principal); G92.8 Other toxic encephalopathy; J69.0 Pneumonitis due to inhalation of food and vomit; R40.2A Nontraumatic coma due to underlying condition; R44.3 Hallucinations, unspecified; F02.82 Dementia in other diseases classified elsewhere, unspecified severity, with psychotic disturbance; R47.01 Aphasia; Q60.0 Renal agenesis, unilateral; J98.11 Atelectasis; N17.9 Acute kidney failure, unspecified; J96.12 Chronic respiratory failure with hypercapnia; E87.0 Hyperosmolality and hypernatremia; R62.7 Adult failure to thrive; G93.89 Other specified disorders of brain; G47.33 Obstructive sleep apnea (adult) (pediatric); I50.9 Heart failure, unspecified; I11.0 Hypertensive heart disease with heart failure; I25.10 Atherosclerotic heart disease of native coronary artery without angina pectoris; J43.8 Other emphysema; E78.00 Pure hypercholesterolemia, unspecified; M10.9 Gout, unspecified; M19.90 Unspecified osteoarthritis, unspecified site; M81.0 Age-related osteoporosis without current pathological fracture; E86.0 Dehydration; R06.89 Other abnormalities of breathing; J98.4 Other disorders of lung; J98.6 Disorders of diaphragm; N40.0 Benign prostatic hyperplasia without lower urinary tract symptoms; H91.93 Unspecified hearing loss, bilateral; D50.9 Iron deficiency anemia, unspecified; R13.10 Dysphagia, unspecified; G30.9 Alzheimer's disease, unspecified; M85.871 Other specified disorders of bone density and structure, right ankle and foot; R09.02 Hypoxemia; H01.004 Unspecified blepharitis left upper eyelid; R19.7 Diarrhea, unspecified; D72.829 Elevated white blood cell count, unspecified; D64.9 Anemia, unspecified; Z99.81 Dependence on supplemental oxygen; Z11.52 Encounter for screening for COVID-19; Z95.5 Presence of coronary angioplasty implant and graft; Z79.02 Long term (current) use of antithrombotics/antiplatelets; Z88.2 Allergy status to sulfonamides; Z88.6 Allergy status to analgesic agent; Z88.1 Allergy status to other antibiotic agents; Z91.040 Latex allergy status; Z88.5 Allergy status to narcotic agent; Z91.013 Allergy to seafood; Z86.73 Personal history of transient ischemic attack (TIA), and cerebral infarction without residual deficits; Z66 Do not resuscitate
CPT/HCPCS: 36600; 70030; 70450; 71045; 71046; 73610; 80048; 80053; 80061; 80306; 81003; 82140; 82533; 82550; 82607; 82728; 82746; 82805; 82962; 83036; 83540; 83550; 83605; 83735; 83930; 84100; 84425; 84443; 84550; 85025; 85027; 85610; 85652; 85730; 86140; 86255; 86430; 87040; 87070; 87502; 87811; 92526; 92610; 93005; 93880; 95816; 96360; 96361; 97163; 97167; 97530; 97535; 99285

== ENCOUNTER → 2023-05-23 10:19 | Outpatient (REF) | payer MEDICARE, OTHER, SELFPAY ==
[2023-05-23 10:54] LABS: % Basophils 0.3 % (0-2); % Eosinophils 1.8 % (0-6); % Immature Granulocytes 1.2 % (0-0.5); % Lymphocytes 19.4 % (20.5-51.1); % Neutrophils 68.3 % (42.2-75.2); Absolute Eosinophils 0.2 10^3/uL (0-0.7); Absolute Immature Granulocytes 0.2 10^3/uL (0-0.05); Absolute Lymphocytes 2.5 10^3/uL (1.2-3.4); Absolute Monocytes 1.2 10^3/uL (0.1-0.6); Absolute Neutrophils 8.9 10^3/uL (1.4-6.5); Hematocrit 36.2 % (39.0-52.0); Hemoglobin 11.1 g/dL (13.0-18.0); Mean Corp Hgb Conc. 30.7 g/dL (33.0-37.0); Mean Corpuscular Hgb 28.5 pg (27.0-31.0); Mean Corpuscular Volume 92.8 fL (80.0-94.0); Mean Platelet Volume 10.1 fL (7.4-10.4); Nucleated Red Blood Cells % 0 % (-); Platelet Count 404 10^3/uL (130-400); Red Cell Dist. Width 14.5 % (11.5-14.5)
[2023-05-23 11:02] LABS: Blood Urea Nitrogen 61 mg/dl (9-20); Calcium 8.6 mg/dl (8.4-10.2); Carbon Dioxide 37 mmol/L (22-30); Chloride 102 mmol/L (98-107); Glucose 92 mg/dl (70-99); Sodium 141 mmol/L (135-145); eGFR 44.78
== END ==
LOC: OLABP 10:19
PROVIDERS: ATTENDING PHYSICIAN Family Medicine
DX: G96.08 Other cranial cerebrospinal fluid leak (principal); I25.10 Atherosclerotic heart disease of native coronary artery without angina pectoris; Q60.0 Renal agenesis, unilateral; H01.00B Unspecified blepharitis left eye, upper and lower eyelids; D64.9 Anemia, unspecified; I11.9 Hypertensive heart disease without heart failure; J44.9 Chronic obstructive pulmonary disease, unspecified; S81.801D Unspecified open wound, right lower leg, subsequent encounter
CPT/HCPCS: 80048; 85025

== ENCOUNTER → 2023-05-25 11:31 | Outpatient (REF) | payer OTHER, MEDICARE, SELFPAY ==
[2023-05-25 12:46] LABS: % Basophils 0.2 % (0-2); % Eosinophils 0.5 % (0-6); % Immature Granulocytes 0.8 % (0-0.5); % Lymphocytes 13.3 % (20.5-51.1); % Monocytes 6.9 % (1.7-9.3); % Neutrophils 78.3 % (42.2-75.2); Absolute Eosinophils 0.1 10^3/uL (0-0.7); Absolute Immature Granulocytes 0.1 10^3/uL (0-0.05); Absolute Lymphocytes 1.5 10^3/uL (1.2-3.4); Absolute Monocytes 0.8 10^3/uL (0.1-0.6); Absolute Neutrophils 8.6 10^3/uL (1.4-6.5); Hematocrit 35.2 % (39.0-52.0); Hemoglobin 10.7 g/dL (13.0-18.0); Mean Corp Hgb Conc. 30.4 g/dL (33.0-37.0); Mean Corpuscular Hgb 28.5 pg (27.0-31.0); Mean Corpuscular Volume 93.9 fL (80.0-94.0); Mean Platelet Volume 10.4 fL (7.4-10.4); Nucleated Red Blood Cells % 0 % (-); Platelet Count 378 10^3/uL (130-400); Red Blood Cell Count 3.75 10^6/uL (4.70-6.10); Red Cell Dist. Width 14.3 % (11.5-14.5)
[2023-05-25 13:11] LABS: Blood Urea Nitrogen 51 mg/dl (9-20); Calcium 8.6 mg/dl (8.4-10.2); Carbon Dioxide 35 mmol/L (22-30); Chloride 98 mmol/L (98-107); Glucose 99 mg/dl (70-99); Potassium 4.9 mmol/L (3.5-5.1); Sodium 138 mmol/L (135-145); eGFR > 60.00
== END ==
LOC: OLABP 11:31
PROVIDERS: ATTENDING PHYSICIAN Family Medicine
DX: G96.08 Other cranial cerebrospinal fluid leak (principal); I25.10 Atherosclerotic heart disease of native coronary artery without angina pectoris; Q60.0 Renal agenesis, unilateral; H01.00B Unspecified blepharitis left eye, upper and lower eyelids; D64.9 Anemia, unspecified; I11.9 Hypertensive heart disease without heart failure; J44.9 Chronic obstructive pulmonary disease, unspecified; S81.801D Unspecified open wound, right lower leg, subsequent encounter
CPT/HCPCS: 36415; 80048; 85025

== ENCOUNTER → 2023-05-30 09:29 | Outpatient (REF) | payer OTHER, MEDICARE, SELFPAY ==
[2023-05-30 11:13] LABS: % Basophils 0.5 % (0-2); % Eosinophils 1.9 % (0-6); % Immature Granulocytes 1.5 % (0-0.5); % Lymphocytes 26.5 % (20.5-51.1); % Monocytes 11.9 % (1.7-9.3); % Neutrophils 57.7 % (42.2-75.2); Absolute Basophils 0.1 10^3/uL (0-0.2); Absolute Eosinophils 0.2 10^3/uL (0-0.7); Absolute Immature Granulocytes 0.2 10^3/uL (0-0.05); Absolute Lymphocytes 2.7 10^3/uL (1.2-3.4); Absolute Monocytes 1.2 10^3/uL (0.1-0.6); Absolute Neutrophils 5.9 10^3/uL (1.4-6.5); Hematocrit 34.9 % (39.0-52.0); Hemoglobin 11.2 g/dL (13.0-18.0); Mean Corp Hgb Conc. 32.1 g/dL (33.0-37.0); Mean Corpuscular Hgb 28.7 pg (27.0-31.0); Mean Corpuscular Volume 89.5 fL (80.0-94.0); Mean Platelet Volume 10.5 fL (7.4-10.4); Nucleated Red Blood Cells % 0 % (-); Platelet Count 367 10^3/uL (130-400); White Blood Cell Count 10.2 10^3/uL (4.8-10.8)
[2023-05-30 13:28] LABS: Blood Urea Nitrogen 40 mg/dl (9-20); Calcium 8.7 mg/dl (8.4-10.2); Carbon Dioxide 34 mmol/L (22-30); Chloride 99 mmol/L (98-107); Glucose 75 mg/dl (70-99); Potassium 5.1 mmol/L (3.5-5.1); Sodium 139 mmol/L (135-145); eGFR 53.17
== END ==
LOC: OLABP 09:29
PROVIDERS: ATTENDING PHYSICIAN Family Medicine
DX: S92.81 Other fracture of foot (principal); G96.08 Other cranial cerebrospinal fluid leak; I25.10 Atherosclerotic heart disease of native coronary artery without angina pectoris; Q60.0 Renal agenesis, unilateral; H01.00B Unspecified blepharitis left eye, upper and lower eyelids; D64.9 Anemia, unspecified; I11.9 Hypertensive heart disease without heart failure; J44.9 Chronic obstructive pulmonary disease, unspecified; S81.801D Unspecified open wound, right lower leg, subsequent encounter
CPT/HCPCS: 36415; 80048; 85025

== ENCOUNTER 2023-12-11 14:58 | Emergency (ER) | payer OTHER, MEDICARE, SELFPAY ==
[2023-12-11 15:10] VITALS: BP 139/81
--- NOTE | 2023-12-11 15:12 | ED.GENMED ---
ED Provider Triage
<Kenji Larios PA-C - Last Filed: 12/11/23 15:13>
-
Patient seen by provider in Triage?: Seen in Triage
88-year-old male with history of COPD presents from home with complaints of shortness of breath and low oxygen readings. He is not always on oxygen. states that he was 85% at home on room air. He denies chest pain. They note no new leg
swelling. There has not been a fever.
Will obtain EKG through triage. Patient is not hypoxic at triage and is in no respiratory distress. His heart rate is normal. Labs pending as well. Does not appear volume overloaded in triage
History of Present Illness
<Kenji Larios PA-C - Last Filed: 12/11/23 15:13>
General
Chief Complaint: Breathing Problem
Time Seen by Provider: 12/11/23 21:02
<Gomez Goff DO - Last Filed: 12/11/23 21:40>
History of Present Illness
History of Present Illness:
TIME OF INITIAL ENCOUNTER: 9 PM
HPI: 88-year-old male with history of COPD presents from home with complaints of shortness of breath and low oxygen readings. He is not always on oxygen. states that he was 85% at home on room air. He denies chest pain. They note no new
leg swelling. There has not been a fever.
EXAM:
GENERAL: Appears somewhat chronically ill and generally weak and debilitated
HEENT: Moist oral mucosa
CARDIOVASCULAR: No murmurs, normal heart rate, regular rhythm, No chest wall tenderness
PULMONARY: No respiratory distress, breath sounds are somewhat decreased at the bases with some rales
ABDOMEN: Soft with no peritoneal signs, no tenderness
NEUROLOGIC: Fair strength all extremities, no coordination deficits
PSYCHIATRIC: Fair mental status, somewhat limited insight and judgement
EXTREMITIES: Nontender, no edema, moves all extremities equally
SKIN: Appears pale
NUMBER AND COMPLEXITY OF PROBLEMS ADDRESSED AT THE ENCOUNTER
� Chronic conditions affecting care: COPD, no definite history of CHF
� Acute Exacerbation and/or Progression of Chronic Illness: This is an acute problem
� Differential Diagnosis includes: COPD exacerbation, pneumonia, heart failure
AMOUNT AND/OR COMPLEXITY OF DATA TO BE REVIEWED AND ANALYZED
� I performed an independent evaluation of and my interpretation is:
EKG: Sinus 86, left axis deviation, IVCD, PVC
CT:
X-rays: Interstitial edema versus pneumonia more so on the left side
Laboratory Studies: BNP 5490, BUN chronically elevated, hemoglobin near baseline
Other:
� Review of other/old records: Old records show a BNP of 731 in 2018 and 2560 in 2016; I reviewed echo from 2019 which showed an EF of 40 to 45%
� Clinical information was obtained by an independent historian: Spoke to the
� Prescriptions/Medications Considered but not given:
� Further testing considered but not performed:
RISK OF COMPLICATIONS AND/OR MORBIDITY OR MORTALITY OF PATIENT MANAGEMENT
� Social determinants of health affecting care: Lives at home
� Discussion with other providers: Notified Dr. Morocho of patient's presentation�see below; Dr. Morocho recommends azithromycin, Bumex twice daily, in addition to steroids
� Escalation of care including admission/observation vs risk of discharge considered: RA sat 85% h/o COPD. Had been on Bumex until April then d/c'joyce Todd put on Bumex over the weekend but notes no change in resp
status (has virtually no symptoms anyway), echo 2020 EF 50-55%, BNP tonight 5490 (731 in 2018). Considered IV diuresis / IV steroids. adamantly wants him to go home. Going to give po steroids. CXR read by radiologist as LLL pneumonia,
however no fever, no cough, normal WBC and to me looks a more like effusion / some interstitial edema.
ANY OTHER UPDATES:
Past History
<Kenji Larios PA-C - Last Filed: 12/11/23 15:13>
Past History
ED Past Medical History: CAD, COPD, HTN, Hypercholesterolemia and Other (History of sleep apnea, prostatic hypertrophy, frequent urination, gout, osteoarthritis, osteoporosis, bilateral hearing impairment, cataracts, anemia)
ED Past Surgical History: Cardiac (Stents ) and Other (Hernia repairs, right shoulder surgery, left ear surgery, cataract surgery)
Social History
Tobacco: Non-smoker
Personal:
Living: with family
Employment: Retired
Family History
Family History: Unable to obtain
Phy Exam
<Gomez Goff DO - Last Filed: 12/11/23 21:40>
Physical Exam
Physical Exam:
See HPI
Scores
<Gomez Goff DO - Last Filed: 12/11/23 21:40>
Heart Failure Risk
Heart Failure Risk Score: Not Applicable
Course
<Kenji Larios PA-C - Last Filed: 12/11/23 15:13>
Orders/Labs/Results
Orders:
Orders
12/11/23 15:11
CR Chest - 2 Views Urgent
Comment:
Reason For Exam: sob
12/11/23 15:15
Complete Blood Count/With Diff Urgent
Comprehensive Metabolic Panel Urgent
NT-proBNP Urgent
12/11/23 21:29
Prednisone [Deltasone] 20 mg PO NOW STA
12/11/23 21:34
Azithromycin [Zithromax] 500 mg PO NOW STA
Abnormal Lab Results
12/11/23
15:15
RBC 3.93 L 10^6/uL
(4.70-6.10)
Hgb 10.9 L g/dL
(13.0-18.0)
Hct 33.8 L %
(39.0-52.0)
MCHC 32.2 L g/dL
(33.0-37.0)
RDW 17.2 H %
(11.5-14.5)
Carbon Dioxide 31 H mmol/L
(22-30)
BUN 44 H mg/dl
(9-20)
Glucose 138 H mg/dl
(70-99)
Total Protein 5.9 L g/dl
(6.3-8.2)
12/11/23 15:15
12/11/23 15:15
Vital Signs
Initial and Last Documented VS:
Initial Vital Signs
Temp Pulse Resp BP Pulse Ox
97.7 F 75 16 139/81 94
12/11/23 15:10 12/11/23 15:10 12/11/23 15:10 12/11/23 15:10 12/11/23 15:10
Last Documented Vital Signs
Temp Pulse Resp BP Pulse Ox
97.7 F 76 16 148/94 88
12/11/23 15:10 12/11/23 21:00 12/11/23 21:00 12/11/23 20:07 12/11/23 21:01
<Gomez Goff, DO - Last Filed: 12/11/23 21:40>
Orders/Labs/Results
Orders:
Orders
12/11/23 15:11
CR Chest - 2 Views Urgent
Comment:
Reason For Exam: sob
12/11/23 15:15
Complete Blood Count/With Diff Urgent
Comprehensive Metabolic Panel Urgent
NT-proBNP Urgent
12/11/23 21:29
Prednisone [Deltasone] 20 mg PO NOW STA
12/11/23 21:34
Azithromycin [Zithromax] 500 mg PO NOW STA
Abnormal Lab Results
12/11/23
15:15
RBC 3.93 L 10^6/uL
(4.70-6.10)
Hgb 10.9 L g/dL
(13.0-18.0)
Hct 33.8 L %
(39.0-52.0)
MCHC 32.2 L g/dL
(33.0-37.0)
RDW 17.2 H %
(11.5-14.5)
Carbon Dioxide 31 H mmol/L
(22-30)
BUN 44 H mg/dl
(9-20)
Glucose 138 H mg/dl
(70-99)
Total Protein 5.9 L g/dl
(6.3-8.2)
12/11/23 15:15
12/11/23 15:15
Vital Signs
Initial and Last Documented VS:
Initial Vital Signs
Temp Pulse Resp BP Pulse Ox
97.7 F 75 16 139/81 94
12/11/23 15:10 12/11/23 15:10 12/11/23 15:10 12/11/23 15:10 12/11/23 15:10
Last Documented Vital Signs
Temp Pulse Resp BP Pulse Ox
97.7 F 76 16 148/94 88
12/11/23 15:10 12/11/23 21:00 12/11/23 21:00 12/11/23 20:07 12/11/23 21:01
<Gomez Goff DO - Last Filed: 12/11/23 21:40>
*Critical Care Note
Total Time (30-74mins, 75-104mins- exclusive of procedures): Not Applicable
ED Attending Note
<Kenji Larios PA-C - Last Filed: 12/11/23 15:13>
-
Portions of this chart may have been created with voice recognition software.� Occasional wrong word or��sound alike� substitutions may have occurred due to the inherent limitations of voice recognition software.
Discharge Plan
Departure
Patient Disposition: Home (Routine Discharge)
Date of Disposition: 12/11/23
Time of Disposition: 21:29
Patient with high blood pressure during this ER visit?: Yes
Discharge Problem:
COPD (chronic obstructive pulmonary disease)
Instructions: Exacerbation of COPD (DC), *CBC Heart Failure Instructions
Prescriptions:
New
prednisone 20 mg tablet
20 mg PO DAILY Qty: 4 0RF
azithromycin [Zithromax] 250 mg tablet
250 mg PO DAILY Qty: 4 0RF
No Action
atenolol 25 MG tablet
12.5 mg PO BID
acetaminophen 650 mg Suppository
650 mg [place] Q4HPRN PRN (Reason: mild pain/MAXWELL/temp>100.5) Qty: 10 0RF
aspirin 81 mg tablet,chewable
81 mg PO DAILY Qty: 30 0RF
prednisone 20 mg tablet
20 mg PO DAILY Qty: 20 0RF
Rx Instructions:
20 mg QD x 7 days then 10 mg QD X 7days then 5 mg QD X 7 days
Referrals:
Kumar Estrada MD [Family Provider] -
Fuad Todd MD [Active] - Follow up in 2-3 days
Activity Restrictions/Additional Instructions:
I sent a prescription for prednisone 20 mg�next dose tomorrow for the next 4 days. I sent a message to your cardiology group. Dr. Morocho recommends taking the Bumex twice a day for a week and antibiotics. I recommend a follow-up Dr. Todd.
Interventions
Interventions:
*Risk Screen - Suicide Last Done: 12/11/23 15:12
*General Assessment Last Done: 12/11/23 20:55
*Neglect/Abuse Screening Last Done: 12/11/23 15:12
ED- Fall Risk Assessment Last Done: 12/11/23 21:02
*ED COVID-19 Vaccine History Last Done: 12/11/23 20:55
ED- Cardiac Assessment Last Done: 12/11/23 20:58
ED- Pulmonary Assessment Last Done: 12/11/23 20:58
Discharge Date and Time
Print Language: PASHTO
[2023-12-11 15:39] LABS: % Basophils 0.9 % (0-2); % Eosinophils 1.6 % (0-6); % Immature Granulocytes 0.3 % (0-0.5); % Monocytes 7.9 % (1.7-9.3); % Neutrophils 67.3 % (42.2-75.2); Absolute Basophils 0.1 10^3/uL (0-0.2); Absolute Eosinophils 0.1 10^3/uL (0-0.7); Absolute Lymphocytes 1.5 10^3/uL (1.2-3.4); Absolute Monocytes 0.5 10^3/uL (0.1-0.6); Absolute Neutrophils 4.6 10^3/uL (1.4-6.5); Hematocrit 33.8 % (39.0-52.0); Hemoglobin 10.9 g/dL (13.0-18.0); Mean Corp Hgb Conc. 32.2 g/dL (33.0-37.0); Mean Corpuscular Hgb 27.7 pg (27.0-31.0); Mean Platelet Volume 10.3 fL (7.4-10.4); Nucleated Red Blood Cells % 0 % (-); Platelet Count 245 10^3/uL (130-400); Red Blood Cell Count 3.93 10^6/uL (4.70-6.10); Red Cell Dist. Width 17.2 % (11.5-14.5); White Blood Cell Count 6.9 10^3/uL (4.8-10.8)
[2023-12-11 15:53] LABS: ALT (SGPT) 45 U/L (0-50); AST (SGOT) 48 U/L (17-59); Albumin 3.8 g/dl (3.5-5.0); Alkaline Phosphatase 78 U/L (38-126); Blood Urea Nitrogen 44 mg/dl (9-20); Calcium 9.2 mg/dl (8.4-10.2); Carbon Dioxide 31 mmol/L (22-30); Chloride 100 mmol/L (98-107); Glucose 138 mg/dl (70-99); Potassium 4.9 mmol/L (3.5-5.1); Sodium 139 mmol/L (135-145); Total Bilirubin 0.5 mg/dl (0.2-1.3); Total Protein 5.9 g/dl (6.3-8.2); eGFR 58.53
[2023-12-11 16:02] LABS: NT-proBNP 5490 pg/ml
[2023-12-11 18:09] VITALS: BP 139/84
[2023-12-11 20:07] VITALS: BP 148/94
[2023-12-11 20:55] VITALS: BMI 28.0
[2023-12-11 21:00] VITALS: BP 142/88
[2023-12-11] MEDS: DELTASONE 20 MG PO (21:55)
[2023-12-11] MEDS: ZITHROMAX 500 MG PO (21:55)
== END 2023-12-11 21:57 | disposition home or self-care (01) ==
LOC: EMR 14:58
PROVIDERS: Physician Assistant; EMERGENCY PHYSICIAN Emergency Medicine; FAMILY PHYSICIAN Family Medicine
DX: J44.9 Chronic obstructive pulmonary disease, unspecified (principal); E78.00 Pure hypercholesterolemia, unspecified; G47.30 Sleep apnea, unspecified; I11.9 Hypertensive heart disease without heart failure; I25.10 Atherosclerotic heart disease of native coronary artery without angina pectoris; M19.90 Unspecified osteoarthritis, unspecified site; M81.0 Age-related osteoporosis without current pathological fracture; N40.0 Benign prostatic hyperplasia without lower urinary tract symptoms; Z95.5 Presence of coronary angioplasty implant and graft
CPT/HCPCS: 99283; 71046; 80053; 83880; 85025

== ENCOUNTER → 2023-12-27 12:27 | Outpatient (REF) | payer MEDICARE, OTHER, SELFPAY | LOC: RCS 12:27 | PROVIDERS: ATTENDING PHYSICIAN Internal Medicine Cardiovascular Disease; FAMILY PHYSICIAN Family Medicine | DX: R06.02 Shortness of breath (principal) | CPT/HCPCS: 93306; Q9950 ==